=== PATIENT | female | born 1940 | race Caucasian/White ===

== ENCOUNTER 2016-10-01 15:03 | Inpatient (IN) | payer MEDICARE ==
[~2016-10-01] VITALS: Ht 157.5 cm; Wt 73.2 kg
[2016-10-03] MEDS ORDERED: FURO1TAB62 PO (13:29)
[2016-10-03] MEDS ORDERED: MAGN500T5 PO (13:29)
[2016-10-03] MEDS ORDERED: PANT20TA2 PO (13:29)
[2016-10-03] MEDS ORDERED: CARD120C4 PO (13:29)
[2016-10-03] MEDS ORDERED: POTA-163 PO (13:29)
[2016-10-03] MEDS ORDERED: MULT1TAB61 PO (13:29)
[2016-10-03] MEDS ORDERED: APIX2.5T PO (13:49)
[2016-10-22] MEDS ORDERED: LACTATED RINGER'S 1000 ML IV PRN (06:00)
[2016-10-22] MEDS ORDERED: SODIUM CHLORID 0.9% 500 ML IV PRN (06:00)
[2016-10-22] MEDS ORDERED: INSULIN HUMAN REGULAR 1,000 UNITS/10 ML VIAL SQ PRN (06:00)
[2016-10-22] MEDS ORDERED: CHLORHEXIDINE GLUCONATE 2 % 1 PACK (2 CLOTHS) TOPICAL PRN (06:00)
[2016-10-22] MEDS ORDERED: DEXAMETHASONE SOD PHOS 4 MG/ML VIAL IV SCH (06:00)
[2016-10-22] MEDS ORDERED: CLINDAMYCIN 900 MG/NS 100 ML IV SCH ×2 (06:00)
[2016-10-22] MEDS ORDERED: POVIDONE IODINE 5% (ANTISEPSIS KIT) 4 APPLICATIONS EACH NARE PRN (06:00)
[2016-10-22 06:10] VITALS: PULSE 101
[2016-10-22] MEDS ORDERED: DEXAMETHASONE SOD PHOS 20 MG/5 ML VIAL ONE (06:13)
[2016-10-22] MEDS ORDERED: SODIUM CHLORIDE 0.9% INJ 100 ML ONE (06:13)
[2016-10-22] MEDS ORDERED: POVIDONE IODINE 7.5% SCRUB 118 ML BOTTLE TOPICAL SCH (06:15)
[2016-10-22] MEDS ORDERED: EXPAREL PERI-ARTICULAR INJECTION (TOTAL VOL. 60 ML) P-ARTICULR SCH ×2 (06:15)
[2016-10-22] MEDS ORDERED: SODIUM CHLORIDE 0.9% IV SCH ×2 (06:15→10:00)
[2016-10-22] MEDS ORDERED: VANCOMYCIN 1000 MG/NS 250 ML (for <70 kg) IV SCH ×2 (06:15)
[2016-10-22] MEDS ORDERED: TRANEXAMIC ACID IV SCH ×2 (06:15→10:00)
[2016-10-22 06:17] VITALS: BP 148/95; PULSE 118; RESP 18; TEMP 98; O2SAT 97
[2016-10-22] MEDS ORDERED: GENTAMICIN SULFATE 80 MG/2 ML VIAL ONE (06:26)
[2016-10-22] MEDS ORDERED: diphenhydrAMINE HCL 50 MG/ML VIAL ONE (06:31)
[2016-10-22] MEDS ORDERED: FAMOTIDINE 20 MG/2 ML VIAL ONE (06:46)
[2016-10-22] MEDS ORDERED: MIDAZOLAM HCL 2 MG/2 ML VIAL ONE (06:46)
--- NOTE | 2016-10-22 06:51 | HHI.DCPOC ---
Discharge Care Plan Diagnosis: (1) Osteoarthritis of right hip (2) Status post total hip replacement, right Your Health Problems Are: Difficulty with ADL Goals to Promote Your Health * To prevent worsening of your condition and complications * To maintain your health at the optimal level Directions to Meet Your Goals Take your medications as prescribed Follow your dietary instruction Follow activity as directed Keep your appointments as scheduled Take your immunizations and boosters as scheduled If your symptoms worsen call your PCP, if no PCP go to Urgent Care Center or Emergency Room Smoking is Dangerous to Your Health. Avoid second hand smoke Call the 24-hour hour crisis hotline for domestic abuse at Kilo Daniels Oct 22, 2016 06:51
--- NOTE | 2016-10-22 06:52 | HHI.FF ---
Face to Face Verification Diagnosis: (1) Osteoarthritis of right hip (2) Status post total hip replacement, right Physical Therapy Gait training, Transfer training, bed to chair Hip: Total hip Right LE Weight Bearing: WB as tolerated Right LE Range of Motion: Active ROM Nursing Nursing: Dressing changes Dressing Changes: Daily dressing change I have seen patient Carri Gerardo on 10/22/16. My clinical findings support the need for the requested home health care services because: Limited ability to care for self High risk of falls I certify that my clinical findings support that this patient is homebound because: Post-op weakness Unsteady gait/balance Kilo Daniels Oct 22, 2016 06:52
[2016-10-22] MEDS ORDERED: SUGAMMADEX SODIUM 200 MG/2 ML VIAL IV PUSH ONE ×2 (08:37)
[2016-10-22] MEDS ORDERED: fentaNYL CITRATE 250 MCG/5 ML AMP ONE (08:37)
[2016-10-22] MEDS ORDERED: ALUMINUM/MAGNESIUM/SIMETH 30 ML CUP PO PRN (08:45)
[2016-10-22] MEDS ORDERED: oxyCODONE/ACETAMINOPHEN 5 MG/325 MG TAB PO PRN (08:45)
[2016-10-22] MEDS ORDERED: diphenhydrAMINE HCL 50 MG/ML VIAL IV PRN (08:45)
[2016-10-22] MEDS ORDERED: ONDANSETRON HCL 4 MG/2 ML VIAL IVP PRN (08:45)
[2016-10-22] MEDS ORDERED: NALOXONE HCL 0.4 MG/ML AMP IV PRN (08:45)
[2016-10-22] MEDS ORDERED: MORPHINE SULFATE 4 MG/ML INJ IV PUSH PRN (08:45)
[2016-10-22] MEDS ORDERED: MAGNESIUM HYDROXIDE SUSP 30 ML CUP PO PRN (08:45)
[2016-10-22] MEDS ORDERED: ZOLPIDEM TARTRATE 5 MG TAB PO PRN (08:45)
[2016-10-22] MEDS ORDERED: SODIUM CHLORIDE 0.9% FLUSH 5 ML FLUSH IVF PRN (08:45)
[2016-10-22] MEDS ORDERED: BISACODYL 10 MG SUPP RECTAL PRN (08:45)
[2016-10-22] MEDS ORDERED: Post-op Orders (for Pharmacy) MISC XX ONE (08:45)
--- NOTE | 2016-10-22 08:54 | PD.OP ---
cc: Dexter Cruz MD Operative Report Date of Surgery: Oct 22, 2016 Preoperative Diagnosis: Right hip severe osteoarthritis Postoperative Diagnosis: Same Procedure: Right total hip arthroplasty Anesthesia: Gen. Surgeon: Dexter Cruz Cnc Operator Machinist(s): JEREMY Preston The surgical procedure was assisted by my Advanced Registered Nurse Practitioner. My SILK CONDITIONER presence was necessary throughout this case for the manipulation and positioning of the surgical extremity. My SILK CONDITIONER was assisting me throughout the duration of this procedure. The skill set of an Advance Registered Nurse Practitioner was medically necessary to complete this procedure. During the surgical case, the lift team technician was working at the back table and the Advance Registered Nurse Practitioner was directly assisting me. Operation and Findings: IMPLANT DESCRIPTION: 1. [place] Gription Cup, acetabular size 48. 2. [place] AltrX polyethylene, neutral. 4. Corail femoral stem size 8, no collar, standard offset. 5. Femoral head/neck metal, 32, +1. ESTIMATED BLOOD LOSS: 300 cc. JUSTIFICATION FOR PROCEDURE: The patient has end-stage osteoarthritis to the hip. There is an attached conservative measures pathway form in the chart that describes the nonoperative measures that were undertaken prior to consideration of surgical management. The patient understood the risks and benefits of surgical management. See my office notes for further details. PROCEDURE: The patient was brought back to the operative theatre. Adequate anesthesia was obtained. The patient received intravenous clindamycin and vancomycin. The patient was carefully placed on the operative table. The lower extremity was prepped and draped in the usual sterile fashion. Fluoroscopic images were obtained. We made a standard anterior incision over the hip. We dissected through the TFL fascia, exposing the anterior capsule. Arthrotomy was performed in a T-shaped fashion. The capsule was tagged with a #2 FiberWire. End-stage arthritis was identified. Osteotomy was performed through the femoral neck exposing the acetabulum. Remnants of the labrum were resected and osteophytes were removed. We sequentially reamed the acetabulum. We trialed the hip and placed the final cup into position. This was done under fluoroscopic guidance to obtain the appropriate inclination and anteversion. A manhole cover was placed into the acetabular component. We then placed the final polyethylene into position and confirmed that it was well seated. Capsular attachments on the calcar and the inner aspect of the greater trochanter were resected. On the proximal aspect of the femur we used a rongeur , box osteotome, canal finder, sequential broaches and lateralizing rasp. We calcar planed the proximal femur. Then thoroughly irrigated the wound. We trialed the hip with the appropriate size stem. We placed the final stem in to position and trialed again. The hip was stable while it was externally rotated 70 degrees when the leg was lowered to the floor. According to the fluoroscopic imaging this patient had still some mild increase in leg length on the right side compared to the left side because the left side has severe osteoarthritis and shortening. We felt that the leg length on the right side now reapproximated the correct anatomic length and position to the hip. The final head was applied, and final fluoroscopic images were obtained. The wound was thoroughly irrigated again. Interarticular injection of liposomal bupivacaine was given. The capsule was closed with #2 FiberWire and #1 Vicryl. The deep fascia was closed with a #2 Stratafix, followed by 2-0 Vicryl in the skin and suleman. Postop plan is to weight-bear as tolerated. DVT prophylaxis will be performed with SCDs, NADEGE dorado, early mobilization, and Eliquis 2.5 mg by mouth twice a day. Dexter Cruz MD Oct 22, 2016 08:54
[2016-10-22] MEDS ORDERED: PERC5TAB12 PO (08:55)
[2016-10-22] MEDS: FUROSEMIDE 20 MG TAB PO SCH (09:00)
[2016-10-22] MEDS: SODIUM CHLORIDE 0.9% FLUSH 5 ML FLUSH IVF SCH ×2 (09:00→21:00)
[2016-10-22] MEDS: PANTOPRAZOLE SOD 20 MG DELAYED RELEASE TAB PO SCH (09:00)
[2016-10-22] MEDS ORDERED: DO NOT ADM ANY ANTICOAGULANT DRUGS PRN (09:08)
[2016-10-22 09:11] VITALS: PULSE 103
[2016-10-22] MEDS ORDERED: *morphine SULFATE 8 MG/ML PERIprocedure ONLY ONE ×2 (09:17→09:38)
[2016-10-22] MEDS: SODIUM CHLOR 0.9% 1000 ML INJ 1,000 ML IV SCH ×2 (09:49→20:00)
--- NOTE | 2016-10-22 09:55 | RADRPT ---
EXAM DATE/TIME: 10/22/2016 07:22 [facility] COMPARISON: No previous studies available for comparison. INDICATIONS : Right total hip arthroplasty. MEDICAL HISTORY : Unobtainable. SURGICAL HISTORY : Unobtainable. ENCOUNTER: Initial ACUITY: 1 day PAIN SCORE: Non-responsive. LOCATION: Right hip FINDINGS: Multiple coned down views of the right hip were obtained using a matrix camera and demonstrate that t he patient is status post arthroplasty. The femoral and acetabular components are intact and in [place] l alignment. There is overlying artifact. CONCLUSION: Status post right hip arthroplasty. Evelio Acosta MD on October 22, 2016 at 9:51 Board Certified Radiologist. This report was verified electronically.
[2016-10-22] MEDS: DILTIAZEM-CD 120 MG CAP ER PO SCH (10:00)
--- NOTE | 2016-10-22 10:27 | RADRPT ---
EXAM DATE/TIME: 10/22/2016 09:32 [facility] COMPARISON: None. INDICATIONS : Post op right hip arthroplasty. MEDICAL HISTORY : None. SURGICAL HISTORY : None. ENCOUNTER: Initial ACUITY: 1 day PAIN SCORE: 10/10 LOCATION: Right hip FINDINGS: AP views of the right hip were obtained as well as a cross table lateral view. This demonstrates that the patient is status post right hip arthroplasty. The femoral and acetabular components are intact and in normal alignment. There is soft tissue swelling and overlying surgical skin suleman. Oderate o steoarthritic changes are noted in the left hip. CONCLUSION: 1. Status post right hip arthroplasty. 2. Osteoarthritic change in the left. Evelio Acosta MD on October 22, 2016 at 10:24 Board Certified Radiologist. This report was verified electronically.
[2016-10-22] MEDS: POTASSIUM CHLORIDE 20 MEQ CONTROLLED RELEASE TAB PO SCH (10:51)
[2016-10-22] MEDS ORDERED: LACTATED RINGER'S 1000 ML INJ 1,000 ML IV ONE (12:00)
[2016-10-22] MEDS ORDERED: ePHEDrine/NS 25 MG/5 ML SYR IV ONE (12:00)
[2016-10-22] MEDS ORDERED: PROPOFOL 200 MG/20 ML AMP IV ONE (12:00)
[2016-10-22] MEDS ORDERED: ONDANSETRON HCL 4 MG/2 ML VIAL IV PUSH ONE (12:00)
[2016-10-22] MEDS ORDERED: PHENYLEPH/NS 1000 MCG/10 ML SYR IV ONE (12:00)
[2016-10-22] MEDS: CLINDAMYCIN INJ 900 MG in SODIUM CHLORIDE 0.9% INJ 100 ML IV SCH ×2 (14:00→23:06)
--- NOTE | 2016-10-22 14:56 | EKG ---
Date Performed: 10/22/2016 Time Performed: 06:19:08 PTAGE: 76 years EKG: ATRIAL FIBRILLATION WITH RAPID VENTRICULAR RESPONSE WITH ABERRANT CONDUCTION OR VENTRICULAR PREMATURE COMPLEXES INDETERMINATE AXIS RIGHT BUNDLE BRANCH BLOCK ABNORMAL ECG INTERPRETATION BASED O N A DEFAULT AGE OF 41 YEARS PREVIOUS TRACING : 10/03/2016 13.43 Compared to the previous tracing, previously sinus, n ow in atrial fibrillation DOCTOR: Matty Branham Interpretating Date/Time 10/22/2016 14:55:40
[2016-10-22 15:00] VITALS: BP 114/81; PULSE 100; RESP 16; TEMP 97.2; O2SAT 95
[2016-10-22 17:45] VITALS: O2SAT 95
--- NOTE | 2016-10-22 18:04 | PD.CONS ---
HPI Service [facility] Consult Requested By Dr. Cruz Reason for Consult Medical management Primary Care Physician Irving Sam DO Diagnoses: History of Present Illness This a pleasant 76-year-old white female with significant past medical history past arthritis, hypertension, recent diagnosis of paroxysmal atrial fibrillation. Patient was admitted for elective surgery, she underwent a right total hip arthroplasty. 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 She is on diltiazem which she took this morning. Patient tolerated surgery well, believes that heart rate was somewhat elevated prior to surgery but was cleared to proceed. At this time, she denies any chest pain, no shortness of breath. Heart rate is somewhat elevated from 110s. She denies any dizziness, no palpitations. States that prior to surgery she used Hibiclens wipes and did develop a rash to her trunk arms and thighs which was relieved with Decadron and Benadryl. She denies any itching at this time. Patient tolerated procedure well, she has minimal pain. Hospitalist services are requested for medical management. Review of Systems Constitutional: DENIES: Diaphoretic episodes, Fatigue, Fever, Weight gain, Weight loss, Chills, Dizziness, Change in appetite, Night Sweats Endocrine: DENIES: Abnorml menstrual pattern, Heat/cold intolerance, Polydipsia , Polyuria, Polyphagia Eyes: DENIES: Blurred vision, Diplopia, Eye inflammation, Eye pain, Vision loss , Photosensitivity, Double Vision Ears, nose, mouth, throat: DENIES: Tinnitus, Hearing loss, Vertigo, Nasal discharge, Oral lesions, Throat pain, Hoarseness, Ear Pain, Running Nose, Epistaxis, Sinus Pain, Toothache, Odynophagia Respiratory: DENIES: Apneas, Cough, Snoring, Wheezing, Hemoptysis, Sputum production, Shortness of breath Cardiovascular: DENIES: Chest pain, Palpitations, Syncope, Dyspnea on Exertion , PND, Lower Extremity Edema, Orthopnea, Claudication Gastrointestinal: DENIES: Abdominal pain, Black stools, Bloody stools, Constipation, Diarrhea, Nausea, Vomiting, Difficulty Swallowing, Anorexia Genitourinary: DENIES: Abnormal vaginal bleeding, Dysmenorrhea, Dyspareunia, Sexual dysfunction, Urinary frequency, Urinary incontinence, Urgency, Hematuria , Dysuria, Nocturia, Vaginal discharge Musculoskeletal: COMPLAINS OF: Joint pain, DENIES: Muscle aches, Stiffness, Joint Swelling, Back pain, Neck pain Integumentary: COMPLAINS OF: Rash (due to Hibiclens wipe), DENIES: Abnormal pigmentation, Pruritus, Nail changes, Breast masses, Breast skin changes, Nipple discharge Hematologic/lymphatic: DENIES: Bruising, Lymphadenopathy Immunologic/allergic: DENIES: Eczema, Urticaria Neurologic: DENIES: Abnormal gait, Headache, Localized weakness, Paresthesias, Seizures, Speech Problems, Tremor, Poor Balance Psychiatric: DENIES: Anxiety, Confusion, Mood changes, Depression, Hallucinations, Agitation, Suicidal Ideation, Homicidal Ideation, Delusions Past Family Social History Past Medical History Paroxysmal A. fib Osteoarthritis GERD Hypertension Migraine Past Surgical History Appendectomy Hysterectomy Bilateral carpal tunnel ORIF right ankle with screws and plate Reported Medications Reported Meds & Active Scripts Active Percocet (Oxycodone-Acetaminophen) 5-325 mg Tab 1-2 Tab PO Q4H PRN Reported Eliquis (Apixaban) 2.5 Mg Tab 2.5 Mg PO BID Centrum Silver Women Tablet (Multivit-Min/Iron/Folic/Lutein) 1 Each Tablet 1 Tab PO DAILY Magnesium Gluconate 500 Mg Tab 500 Mg PO DAILY Pantoprazole (Pantoprazole Sodium) 20 Mg Tab 20 Mg PO DAILY Potassium Chloride ER (Potassium Chloride) 20 Meq Tab 20 Meq PO DAILY Lasix (Furosemide) 20 Mg Tab 20 Mg PO DAILY Cardizem CD 24 HR (Diltiazem CD 24 HR) 120 Mg Caper 120 Mg PO DAILY Allergies: Coded Allergies: adhesive (Unverified Allergy, Severe, REDNESS, 10/22/16) cefazolin (Unverified Allergy, Severe, FLUSHING, 10/22/16) acebutolol (Unverified Allergy, Unknown, 10/22/16) aspirin (Unverified Allergy, Unknown, 10/22/16) atenolol (Unverified Allergy, Unknown, 10/22/16) benazepril (Unverified Allergy, Unknown, 10/22/16) betaxolol (Unverified Allergy, Unknown, 10/22/16) captopril (Unverified Allergy, Unknown, 10/22/16) carvedilol (Unverified Allergy, Unknown, 10/22/16) cephalexin (Unverified Allergy, Unknown, 10/22/16) codeine (Unverified Allergy, Unknown, vomit, 10/22/16) diatrizoate meglumine (Unverified Allergy, Unknown, 10/22/16) enalaprilat (Unverified Allergy, Unknown, 10/22/16) erythromycin base (Unverified Allergy, Unknown, 10/22/16) fosinopril (Unverified Allergy, Unknown, 10/22/16) gadobenic acid (Unverified Allergy, Unknown, 10/22/16) gadodiamide (Unverified Allergy, Unknown, 10/22/16) gadoteridol (Unverified Allergy, Unknown, 10/22/16) iodixanol (Unverified Allergy, Unknown, 10/22/16) iohexol (Unverified Allergy, Unknown, 10/22/16) labetalol (Unverified Allergy, Unknown, 10/22/16) latex (Unverified Allergy, Unknown, 10/22/16) lisinopril (Unverified Allergy, Unknown, 10/22/16) metoprolol (Unverified Allergy, Unknown, 10/22/16) nebivolol (Unverified Allergy, Unknown, 10/22/16) penicillin G (Unverified Allergy, Unknown, 10/22/16) pindolol (Unverified Allergy, Unknown, 10/22/16) propranolol (Unverified Allergy, Unknown, 10/22/16) quinapril (Unverified Allergy, Unknown, 10/22/16) sotalol (Unverified Allergy, Unknown, 10/22/16) timolol (Unverified Allergy, Unknown, 10/22/16) Active Ordered Medications Inpatient Medications Al Hydrox/Mg Hydrox/Simethicone (Mag-Al Plus Susp Liq) 30 ml Q6H PRN PO INDIGESTION; Start 10/22/16 at 08:45 Apixaban (Eliquis) 2.5 mg BID PO ; Start 10/23/16 at 07:00 Bisacodyl (Dulcolax Supp) 10 mg DAILY PRN RECTAL CONSTIPATION; Start 10/22/16 at 08:45 Bupivacaine Liposome 20 ml/ Sodium Chloride 60 ml @ 120 mls/hr ONCE P-ARTICULR Last administered on 10/22/16t 07:40; Start 10/22/16 at 06:15; Stop 10/22/16 at 12:15; Status DC Chlorhexidine Gluconate (Chlorhexidine 2% Cloth) 3 pack EYEGLASS LENS GRINDER PRN TOPICAL SEE LABEL COMMENTS; Start 10/22/16 at 06:00; Stop 10/25/16 at 05:59 Clindamycin Phosphate 900 mg/ Sodium Chloride 106 ml @ 212 mls/hr EYEGLASS LENS GRINDER IV Last administered on 10/22/16 06:34; Start 10/22/16 at 06:00 Clindamycin Phosphate/Sodium Chloride (Cleocin Inj/NS Inj) 106 ml @ 212 mls/hr Q8H IV Last administered on 10/22/16 14:00; Start 10/22/16 at 14:00; Stop at 06:29 Dexamethasone Sodium Phosphate (Decadron Inj) 10 mg ONCE ONCE IV ; Start at 10:00; Stop 10/23/16 at 10:01 Diltiazem HCl (Cardizem Cd) 120 mg DAILY PO ; Start 10/22/16 at 10:00 Diphenhydramine HCl (Benadryl Inj) 25 mg Q6H PRN IV ITCHING; Start 10/22/16 at 08:45 Docusate Sodium (Colace) 100 mg BID PO ; Start 10/23/16 at 21:00 Furosemide (Lasix) 20 mg DAILY PO Last administered on 10/22/16 09:00; Start 10/22/16 at 09:00 Insulin Human Regular (NovoLIN R INJ) See Protocol Table ... EYEGLASS LENS GRINDER PRN SQ SEE PROTOCOL TABLE; Start 10/22/16 at 06:00; Stop 10/25/16 at 05:59 IV Flush (NS Flush) 2 ml UNSCH PRN IVF FLUSH AFTER USING IV ACCESS; Start 10/22 at 08:45 IV Flush 2 ml 2 ml BID IVF Last administered on 10/22/16 09:00; Start at 09:00 Lactated Ringer's 1,000 ml @ 30 mls/hr Q24H PRN IV SEE LABEL COMMENTS Last administered on 10/22/16 06:10; Start 10/22/16 at 06:00; Stop 10/25/16 at 05:59 Magnesium Hydroxide (Milk Of Magnesia Liq) 30 ml DAILY PRN PO CONSTIPATION; Start 10/22/16 at 08:45 Miscellaneous Information ALL NURSING DEPARTME... UNSCH PRN .XX SEE LABEL COMMENTS; Start 10/22/16 at 09:08; Stop 10/23/16 at 09:07 Miscellaneous Information (Post-op Orders (for Pharmacy)) STAT ONCE XX ; Start 10/22/16 at 08:45; Stop 10/22/16 at 09:42; Status DC Morphine Sulfate (Morphine Inj) 2 mg Q3H PRN IV PUSH pain greater than 5; Start 10/22/16 at 08:45 Multivitamins/ Minerals Therapeutic (Theragran M Tab) 1 tab BID PO ; Start 10/23 at 21:00; Stop 12/22/16 at 20:59 Naloxone HCl (Narcan Inj) 0.4 mg UNSCH PRN IV RESPIRATORY RATE LESS THAN 10; Start 10/22/16 at 08:45 Ondansetron HCl (Zofran Inj) 4 mg Q6H PRN IVP NAUSEA OR VOMITING; Start at 08:45 Oxycodone/ Acetaminophen (Percocet 5-325 Mg) 1 tab Q4H PRN PO PAIN LESS THAN 5 ON SCALE; Start 10/22/16 at 08:45 Oxycodone/ Acetaminophen 2 tab 2 tab Q4H PRN PO PAIN SCALE 5 TO 10; Start 10/22 at 08:45 Pantoprazole Sodium (Protonix) 20 mg DAILY PO Last administered on 10/22/16 09 :00; Start 10/22/16 at 09:00 Potassium Chloride (KCl) 20 meq DAILY PO Last administered on 10/22/16 10:51; Start 10/22/16 at 09:00 Povidone Iodine (Betadine 5% Antisepsis Kit) 1 applic EYEGLASS LENS GRINDER PRN EACH NARE SEE LABEL COMMENTS; Start 10/22/16 at 06:00; Stop 10/25/16 at 05:59 Povidone Iodine 1 applic 1 applic ONCE TOPICAL ; Start 10/22/16 at 06:15; Stop 10/25/16 at 06:14 Sodium Chloride (NS 1000 ml Inj) 1,000 ml @ 100 mls/hr Q10H IV Last administered on 10/22/16 09:49; Start 10/22/16 at 10:00 Sodium Chloride (NS 500 ml Inj) 500 ml @ 30 mls/hr [id number] PRN IV SEE LABEL COMMENTS; Start 10/22/16 at 06:00; Stop 10/25/16 at 05:59 Tranexamic Acid 721 mg/Sodium Chloride 107.21 ml @ 200 mls/ hr ONCE IV Last administered on 10/22/16 07:11; Start 10/22/16 at 06:15; Stop 10/22/16 at 12:15 ; Status DC Tranexamic Acid/ Sodium Chloride (Cyklokapron Inj/ NS Inj) 107.21 ml @ 200 mls / hr UNSCH IV ; Start 10/22/16 at 10:00; Stop 10/22/16 at 16:00; Status DC Vancomycin HCl 1000 mg/Sodium Chloride 250 ml @ 250 mls/hr EYEGLASS LENS GRINDER IV Last administered on 10/22/16 06:38; Start 10/22/16 at 06:15; Stop 10/25/16 at 06:14 Zolpidem Tartrate (Ambien) 5 mg HS PRN PO SLEEP; Start 10/22/16 at 08:45 Family History Reviewed, noncontributory Social History Drinks 1- 2 glasses of wine a day, lives with son No tobacco abuse No substance abuse Physical Exam Vital Signs Vital Signs Date Time Temp Pulse Resp B/P Pulse Ox O2 Delivery O2 Flow Rate FiO2 10/22/16 17:45 95 Nasal Cannula 2.00 10/22/16 15:00 97.2 100 16 114/81 95 10/22/16 12:00 97.9 104 25 148/71 100 Nasal Cannula 2 10/22/16 11:00 110 12 148/71 95 Room Air 10/22/16 10:30 117 15 131/81 99 Nasal Cannula 2 10/22/16 10:00 111 12 132/71 100 Nasal Cannula 2 10/22/16 09:45 113 16 134/81 100 Nasal Cannula 2 10/22/16 09:30 103 14 137/61 100 Nasal Cannula 4 10/22/16 09:11 97.9 103 16 133/76 99 Nasal Cannula 4 10/22/16 09:11 103 10/22/16 06:17 98.0 118 18 148/95 97 10/22/16 06:10 101 Physical Exam GENERAL: This is a well-nourished, well-developed patient, in no apparent distress. SKIN: No rashes, ecchymoses or lesions. Cool and dry. HEAD: Atraumatic. Normocephalic. No temporal or scalp tenderness. EYES: Pupils equal round and reactive. Extraocular motions intact. No scleral icterus. No injection or drainage. ENT: Nose without bleeding, purulent drainage or septal hematoma. Throat without erythema, tonsillar hypertrophy or exudate. Uvula midline. Airway patent. NECK: Trachea midline. No JVD or lymphadenopathy. Supple, nontender, no meningeal signs. CARDIOVASCULAR: S1 and S2, irregularly irregular, no rubs, gallops, murmurs. RESPIRATORY: Clear to auscultation. Breath sounds equal bilaterally. No wheezes , rales, or rhonchi. GASTROINTESTINAL: Abdomen soft, non-tender, nondistended. No hepato-splenomegaly , or palpable masses. No guarding. MUSCULOSKELETAL: Right hip with dressing dry and intact, intact sensation to the right foot. Bilateral pedal pulses 2+. No other joint abnormality. NEUROLOGICAL: Awake and alert. Cranial nerves II through XII intact. Motor and sensory grossly within normal limits. Five out of 5 muscle strength in all muscle groups. Normal speech. Laboratory Laboratory Tests Test 10/22/16 06:08 Blood Type A NEGATIVE Antibody Screen NEGATIVE Blood Bank Comment Imaging Last Impressions Hip and Pelvis X-Ray 10/22/16 0844 Signed Impressions: Service Date/Time: Saturday, October 22, 2016 09:32 - CONCLUSION: 1. Status post right hip arthroplasty. 2. Osteoarthritic change in the left. Evelio Acosta MD Hip X-Ray 10/22/16 0000 Signed Impressions: Service Date/Time: Saturday, October 22, 2016 07:22 - CONCLUSION: Status post right hip arthroplasty. Evelio Acosta MD A/P Diagnosis: (1) Status post total hip replacement, right (2) Osteoarthritis of right hip (3) GERD (gastroesophageal reflux disease) (4) Paroxysmal a-fib (5) HTN (hypertension) Assessment and Plan Thank you for this consultation, we will assist with medical management 76-year-old with history of osteoarthritis, status post right hip arthroplasty -Continue with postoperative orthopedic care Pain management Postop antibiotics Eliquis 2.5 mg by mouth twice a day will be used for DVT prophylaxis Bowel regimen -Physical therapy Paroxysmal A. fib, heart rate noted elevated, 110s We will order continuous cardiac telemetry Continue with diltiazem Continue with Eliquis -Continue to monitor heart rate closely, may need medications to be adjusted if heart rate not controlled Hypertension -Continue with diltiazem Continue with Eliquis for DVT prophylaxis CBC and BMP in the morning Plan of care discussed with the patient, attending and registered nurse. Further management of the patient will be dependent on the hospital course This patient was seen by myself and Dr. Rodriguez, this consultation is written on his behalf Problem Qualifiers (1) Osteoarthritis of right hip: Qualified Code: M16.11 - Osteoarthritis of right hip, unspecified osteoarthritis type (2) GERD (gastroesophageal reflux disease): Qualified Code: K21.9 - Gastroesophageal reflux disease, esophagitis presence not specified (3) HTN (hypertension): Qualified Code: I10 - Essential hypertension Sharyn Martel Oct 22, 2016 18:04
[2016-10-22 19:00] VITALS: BP 116/55; PULSE 68; RESP 17; TEMP 99.5; O2SAT 94
[2016-10-22] MEDS: oxyCODONE/ACETAMINOPHEN 5 MG/325 MG TAB PO PRN (20:49)
[2016-10-23] VITALS (7 sets, daily range): BP systolic 115–139; BP diastolic 65–77; PULSE 85–98; RESP 16–18; TEMP 96–98.3; O2SAT 95–99
[2016-10-23] MEDS: oxyCODONE/ACETAMINOPHEN 5 MG/325 MG TAB PO PRN ×3 (05:45→21:05)
[2016-10-23] MEDS: CLINDAMYCIN INJ 900 MG in SODIUM CHLORIDE 0.9% INJ 100 ML IV SCH (05:45)
[2016-10-23] MEDS: SODIUM CHLOR 0.9% 1000 ML INJ 1,000 ML IV SCH ×3 (05:53→21:06)
[2016-10-23] MEDS: APIXABAN 2.5 MG TABLET PO SCH ×2 (05:53→21:05)
[2016-10-23] MEDS ORDERED: APIXABAN 2.5 MG TABLET PO SCH (07:00)
[2016-10-23 07:41] LABS: HEMATOCRIT 29.4 % (35.0-46.0); MEAN CELL VOLUME 91.1 FL (80.0-100.0); MEAN CORPUSCULAR HEMOGLOBIN 30.9 PG (27.0-34.0); MEAN CORPUSCULAR HGB CONC 33.9 % (32.0-36.0); PLATELET COUNT 85 TH/MM3 (150-450); RED BLOOD COUNT 3.22 MIL/MM3 (4.00-5.30); WHITE BLOOD COUNT 6.7 TH/MM3 (4.0-11.0)
[2016-10-23 07:49] LABS: REVIEW FLAG FINAL
[2016-10-23 08:16] LABS: BICARBONATE 27.7 MEQ/L (21.0-32.0); POTASSIUM 3.5 MEQ/L (3.5-5.1)
[2016-10-23] MEDS: SODIUM CHLORIDE 0.9% FLUSH 5 ML FLUSH IVF SCH ×2 (09:00→21:00)
[2016-10-23] MEDS: FUROSEMIDE 20 MG TAB PO SCH (09:26)
[2016-10-23] MEDS: POTASSIUM CHLORIDE 20 MEQ CONTROLLED RELEASE TAB PO SCH (09:26)
[2016-10-23] MEDS: PANTOPRAZOLE SOD 20 MG DELAYED RELEASE TAB PO SCH (09:26)
[2016-10-23] MEDS: DILTIAZEM-CD 120 MG CAP ER PO SCH (09:26)
[2016-10-23] MEDS ORDERED: DEXAMETHASONE SOD PHOS 20 MG/5 ML VIAL IV ONE (10:00)
--- NOTE | 2016-10-23 11:23 | PD.ORT.PN ---
Subjective Post Op Day #: 1 Subjective Remarks The patient is OOB in chair with minimal right hip pain. Objective Vitals Vital Signs Date Time Temp Pulse Resp B/P Pulse Ox O2 Delivery O2 Flow Rate FiO2 10/23/16 08:00 97.4 85 18 116/67 96 10/23/16 04:00 96.0 89 16 131/72 98 10/23/16 00:00 96.4 87 16 115/65 97 10/22/16 19:16 Room Air 10/22/16 19:00 99.5 68 17 116/55 94 10/22/16 17:45 95 21 10/22/16 15:00 97.2 100 16 114/81 95 10/22/16 12:00 97.9 104 25 148/71 100 Nasal Cannula 2 I/O 10/22/16 10/22/16 10/22/16 10/23/16 10/23/16 10/23/16 07:00 15:00 23:00 07:00 15:00 23:00 Intake Total 1729 ml 480 ml 749 ml Output Total 650 ml 800 ml 450 ml Balance 1079 ml -320 ml 299 ml Intake Oral 480 ml 480 ml IV Total 479 ml 269 ml Other 1250 ml Output Urine Total 350 ml 800 ml 450 ml Estimated Blood Loss 300 ml # Bowel Movements 0 0 Result Diagram: 10/23/1670210/23/16 07 Procedures Right REESE Objective Remarks Dressing is C/D/I. EHL/TA/G intact. 2+ pedal pulse. No calf swelling or tenderness. + SILT. Assessment & Plan Ortho Post Op Day #: 1 Problem List: Assessment and Plan POD #1: Right REESE 1. Eliquis 2.5 mg BID for DVT prophylaxis 2. WBAT RLE 3. Ice to the right hip PRN 4. Anticipatory discharge to [facility] ([facility]) on Thursday. 5. F/U with Dr. Cruz or JEREMY Yu in the office as scheduled. Kilo Daniels Oct 23, 2016 11:23
--- NOTE | 2016-10-23 12:59 | HHI.PR ---
Subjective Remarks resting up in chair Alert oriented Denies any acute pain (Beba Aden) Objective Objective Results - Vital Signs Date Time Temp Pulse Resp B/P Pulse Ox O2 Delivery O2 Flow Rate FiO2 10/23/16 12:00 98.1 98 18 139/74 99 10/23/16 08:00 97.4 85 18 116/67 96 10/23/16 04:00 96.0 89 16 131/72 98 10/23/16 00:00 96.4 87 16 115/65 97 10/22/16 19:16 Room Air 10/22/16 19:00 99.5 68 17 116/55 94 10/22/16 17:45 95 21 10/22/16 15:00 97.2 100 16 114/81 95 I/O 10/22/16 10/22/16 10/22/16 10/23/16 10/23/16 10/23/16 07:00 15:00 23:00 07:00 15:00 23:00 Intake Total 1729 ml 480 ml 749 ml Output Total 650 ml 800 ml 450 ml Balance 1079 ml -320 ml 299 ml Intake Oral 480 ml 480 ml IV Total 479 ml 269 ml Other 1250 ml Output Urine Total 350 ml 800 ml 450 ml Estimated Blood Loss 300 ml # Bowel Movements 0 0 (Beba Aden) Result Diagram: 10/23/1603 10/23/16 0703 ROS General: Weakness (mild), Other (10 point ROS done positives noted) Neuro/MS: Other (right hip dressing clean dry and intact, trace of edema) ( Beba Aden) Physical Exam Physical Exam PHYSICAL EXAMINATION GENERAL: This is a obese female who appears to be in no acute distress. She is alert and awake, HEAD: Normocephalic Facial features appear symmetric. OROPHARYNGEAL: Oropharynx without erythema or edema. NECK: Supple. No nuchal rigidity or lymphadenopathy. Trachea midline without deviation. CARDIAC: Regular rhythm, regular rate, S1 and S2 are heard. LUNGS: Clear to auscultation bilaterally. No cough ABDOMEN: Soft, nontender, round Bowel sounds are heard in all four quadrants. No rebound. No guarding. EXTREMITIES: no lower extremity edema. Pulses equal bilateral. NEUROLOGICAL: Patient mood and affect appropriate. No focal deficit SKIN:Warm and moist (Beba Aden) A/P Assessment and Plan (1) Status post total hip replacement, right (2) Osteoarthritis of right hip (3) GERD (gastroesophageal reflux disease) (4) Paroxysmal a-fib (5) HTN (hypertension) Blood sugar noted to be 140, patient states that she had been on some steroids. Nondiabetic osteoarthritis, status post right hip arthroplasty postoperative orthopedic care and pain management Eliquis 2.5 mg by mouth twice a day will be used for DVT prophylaxis Bowel regimen Physical therapy Paroxysmal A. fib, controlled ventricular response Monitor heart rate, continue medical management with L was and Cardizem Thrombocytopenia, monitor labs patient is on Eliquix Continue with Eliquis for DVT prophylaxis Discussed with patient Discussed with nurse and physical therapist Discussed with Dr. Campbell, seen on his behalf Discharge planning probable Thursday, patient's plan is to go to rehabilitation (Beba Aden) Assessment and Plan seen, examined by myself, Dr Campbell, today Discussed with patient, she has elevated fasting blood sugar Rule out diabetes Hemoglobin A1c, TSH, liver enzymes, CBC, BMP ordered for tomorrow Otherwise she is doing well postoperatively Discussed with mid level provider The exam, history, and the medical decision-making described in the above note were completed with the assistance of the mid-level provider. I reviewed the findings presented. I attest that I had a [id number] encounter with the patient on the same day, and personally performed and documented my assessment and findings in the medical record. (Ada Campbell MD) Beba Aden Oct 23, 2016 12:59 Ada Campbell MD Oct 23, 2016 19:52
[2016-10-23] MEDS: MULTIVITAMINS/MINERALS THERAPEUTIC TAB PO SCH (21:05)
[2016-10-23] MEDS: DOCUSATE SODIUM 100 MG CAP PO SCH (21:05)
[2016-10-24] VITALS (7 sets, daily range): BP systolic 114–148; BP diastolic 68–79; PULSE 79–95; RESP 16–17; TEMP 96.7–98.4; O2SAT 96–99
[2016-10-24] MEDS: DOCUSATE SODIUM 100 MG CAP PO SCH ×2 (08:15→20:50)
[2016-10-24] MEDS: POTASSIUM CHLORIDE 20 MEQ CONTROLLED RELEASE TAB PO SCH (08:15)
[2016-10-24] MEDS: APIXABAN 2.5 MG TABLET PO SCH ×2 (08:16→20:49)
[2016-10-24] MEDS: FUROSEMIDE 20 MG TAB PO SCH (08:16)
[2016-10-24] MEDS: MULTIVITAMINS/MINERALS THERAPEUTIC TAB PO SCH ×2 (08:16→20:52)
[2016-10-24] MEDS: DILTIAZEM-CD 120 MG CAP ER PO SCH (08:16)
[2016-10-24] MEDS: PANTOPRAZOLE SOD 20 MG DELAYED RELEASE TAB PO SCH (08:17)
[2016-10-24] MEDS: oxyCODONE/ACETAMINOPHEN 5 MG/325 MG TAB PO PRN ×2 (08:18→18:22)
[2016-10-24] MEDS: SODIUM CHLORIDE 0.9% FLUSH 5 ML FLUSH IVF SCH ×2 (08:19→20:53)
[2016-10-24 09:38] LABS: AUTOMATED NEUTROPHIL # 5.6 TH/MM3 (1.8-7.7); HEMATOCRIT 29.7 % (35.0-46.0); LYMPH % 6.2 % (9.0-44.0); LYMPHOCYTE # 0.4 TH/MM3 (1.0-4.8); MEAN CELL VOLUME 90.1 FL (80.0-100.0); MEAN CORPUSCULAR HEMOGLOBIN 30.8 PG (27.0-34.0); MEAN CORPUSCULAR HGB CONC 34.2 % (32.0-36.0); MONO % 8.9 % (0.0-8.0); NEUT % 84.9 % (16.0-70.0); PLATELET COUNT 78 TH/MM3 (150-450); RED BLOOD COUNT 3.29 MIL/MM3 (4.00-5.30); RED CELL DISTRIBUTION WIDTH 14.3 % (11.6-17.2); WHITE BLOOD COUNT 6.6 TH/MM3 (4.0-11.0)
[2016-10-24 09:50] LABS: ANION GAP 5 MEQ/L (5-15); BICARBONATE 30.3 MEQ/L (21.0-32.0); BLOOD UREA NITROGEN 16 MG/DL (7-18); CHLORIDE 103 MEQ/L (98-107); GLOMERULAR FILTRATION RATE 80 ML/MIN (>89); POTASSIUM 3.1 MEQ/L (3.5-5.1); SODIUM (NA) 138 MEQ/L (136-145)
[2016-10-24 10:01] LABS: HDL CHOLESTEROL 64.9 MG/DL (40.0-60.0); HEMO FLAGS AUTO DIFF; LDL CHOLESTEROL 73 MG/DL (0-99)
[2016-10-24] MEDS ORDERED: POTASSIUM CHLORIDE 20 MEQ CONTROLLED RELEASE TAB PO ONE (10:45)
[2016-10-24 11:42] LABS: PLATELET MORPHOLOGY ENLARGED (NORMAL); SCAN/DIFF AUTO DIFF CONFIRMED
[2016-10-24] MEDS: SODIUM CHLOR 0.9% 1000 ML INJ 1,000 ML IV SCH ×2 (12:00→20:52)
--- NOTE | 2016-10-24 13:52 | HHI.PR ---
Subjective Remarks resting up in chair Alert oriented Denies any acute pain (Beba Aden) Objective Objective Results - Vital Signs Date Time Temp Pulse Resp B/P Pulse Ox O2 Delivery O2 Flow Rate FiO2 10/24/16 12:31 96 21 10/24/16 04:00 97.1 80 17 126/78 98 10/24/16 00:00 97.7 87 16 114/68 97 10/23/16 20:00 98.2 89 16 129/77 95 10/23/16 19:42 Room Air 10/23/16 16:00 98.3 92 18 137/72 97 10/23/16 14:16 98 21 I/O 10/23/16 10/23/16 10/23/16 10/24/16 10/24/16 10/24/16 06:59 14:59 22:59 06:59 14:59 22:59 Intake Total 749 ml 960 ml 480 ml 480 ml Output Total 450 ml Balance 299 ml 960 ml 480 ml 480 ml Intake Oral 480 ml 960 ml 480 ml 480 ml IV Total 269 ml Output Urine Total 450 ml # Voids 1 2 1 # Bowel Movements 0 0 (Beba Aden) Result Diagram: 10/24/16 0833 10/24/16 0833 Physical Exam Physical Exam PHYSICAL EXAMINATION GENERAL: This is a well-developed, elderly female resting in chair. She is alert and awake, Mild bruising noted on arms. Patient on Eliquis HEAD: Normocephalic Facial features appear symmetric. OROPHARYNGEAL: Oropharynx without erythema or edema. NECK: Supple. Trachea midline without deviation. CARDIAC: Regular rhythm, regular rate, S1 and S2 are heard. LUNGS: Clear to auscultation bilaterally. ABDOMEN: Soft, nontender, Bowel sounds are heard in all four quadrants. No rebound. No guarding. EXTREMITIES: no LE edema. Pulses equal bilateral. NEUROLOGICAL: Patient mood and affect appropriate. SKIN:Warm and moist (Beba Aden) A/P Assessment and Plan (1) Status post total hip replacement, right (2) Osteoarthritis of right hip (3) GERD (gastroesophageal reflux disease) (4) Paroxysmal a-fib (5) HTN (hypertension) Blood sugar noted to be 116, fasting, needs further monitoring, Nondiabetic, continue to monitor TSH, Hgb A!C, pending, Lipids normal ranges, HDL good, TSH 0.147. Monitor, may need f/u U/S. osteoarthritis, status post right hip arthroplasty postoperative orthopedic care and pain management Eliquis 2.5 mg by mouth twice a day will be used for DVT prophylaxis Bowel regimen, still no BM yet, Will add Ducolax tabs, encourage PO fluids , suppository Ducolax if no BM. Patient is passing gas. Physical therapy Multiple allergies, Added PO Benadryl per patient request. GERD, PPI Hypokalemia, added Potassium PO 40mez today, Patient takes Lasix and low dose Potassium. Check BMP in am Thrombocytopenia , monitor, on low dose Eliquis, no active bleeding noted. Paroxysmal A. fib, controlled ventricular response, hx of , No symptoms when in afib or not. Monitor heart rate, continue medical management Thrombocytopenia, monitor labs patient is on Eliquis low dose, will have Hematology to see today Continue with Eliquis for DVT prophylaxis Discussed with patient Discussed with nurse and physical therapist Discussed with Dr. Campbell, seen on his behalf Discharge planning probable Thursday, patient's plan is to go to [facility], Case Management consult to assistance, 3008 on chart (Beba Aden) Assessment and Plan seen, examined by myself, Dr Campbell, today Discussed with patient, she is feeling well Platelets dropping, etiology unclear, consult hematology Replace potassium Discussed with mid level provider The exam, history, and the medical decision-making described in the above note were completed with the assistance of the mid-level provider. I reviewed the findings presented. I attest that I had a [id number] encounter with the patient on the same day, and personally performed and documented my assessment and findings in the medical record. (Ada Campbell MD) Beba Aden Oct 24, 2016 13:52 Ada Campbell MD Oct 24, 2016 19:18
[2016-10-24] MEDS ORDERED: diphenhydrAMINE HCL 25 MG CAP PO PRN (14:00)
--- NOTE | 2016-10-24 15:28 | PD.ORT.PN ---
Subjective Post Op Day #: 2 Subjective Remarks The patient states her hip pain is better today. Patient's pain is better than her OA pain she had prior to surgery. Objective Vitals Vital Signs Date Time Temp Pulse Resp B/P Pulse Ox O2 Delivery O2 Flow Rate FiO2 10/24/16 12:31 96 21 10/24/16 04:00 97.1 80 17 126/78 98 10/24/16 00:00 97.7 87 16 114/68 97 10/23/16 20:00 98.2 89 16 129/77 95 10/23/16 19:42 Room Air 10/23/16 16:00 98.3 92 18 137/72 97 I/O 10/23/16 10/23/16 10/23/16 10/24/16 10/24/16 10/24/16 07:00 15:00 23:00 07:00 15:00 23:00 Intake Total 749 ml 960 ml 480 ml 480 ml Output Total 450 ml Balance 299 ml 960 ml 480 ml 480 ml Intake Oral 480 ml 960 ml 480 ml 480 ml IV Total 269 ml Output Urine Total 450 ml # Voids 1 2 1 # Bowel Movements 0 0 Result Diagram: 10/24/16 0833 10/24/16 0833 Procedures Right REESE Objective Remarks Dressing changed with no drainage. Incision is well approximated with surgical clips intact. No redness or s/s of infection. EHL/TA/G intact. 2+ pedal pulse. No calf swelling or tenderness. + SILT. Assessment & Plan Ortho Post Op Day #: 2 Problem List: Assessment and Plan POD #2: Right REESE 1. Eliquis 2.5 mg BID for DVT prophylaxis 2. WBAT RLE 3. Ice to the right hip PRN 4. Anticipatory discharge to [facility] ([facility]) on Thursday. 5. F/U with Dr. Cruz or JEREMY Yu in the office as scheduled. Dexter Cruz MD Oct 24, 2016 15:28
[2016-10-24 17:07] LABS: HEMOGLOBIN A1a 0.8 %; HEMOGLOBIN A1b 1.5 %; HEMOGLOBIN Ao 85.6 %; HEMOGLOBIN F 0.3 %; HEMOGLOBIN LA1C 2.1 %
[2016-10-25] VITALS: BP 103/66; PULSE 87; RESP 16; TEMP 97; O2SAT 98
[2016-10-25 08:00] VITALS: BP 162/73; PULSE 59; RESP 22; TEMP 99; O2SAT 96
[2016-10-25] MEDS: SODIUM CHLOR 0.9% 1000 ML INJ 1,000 ML IV SCH (08:00)
[2016-10-25] MEDS: DOCUSATE SODIUM 100 MG CAP PO SCH (09:00)
[2016-10-25] MEDS: DILTIAZEM-CD 120 MG CAP ER PO SCH (09:00)
[2016-10-25] MEDS: MULTIVITAMINS/MINERALS THERAPEUTIC TAB PO SCH (09:00)
[2016-10-25] MEDS: SODIUM CHLORIDE 0.9% FLUSH 5 ML FLUSH IVF SCH (09:00)
[2016-10-25] MEDS: oxyCODONE/ACETAMINOPHEN 5 MG/325 MG TAB PO PRN ×2 (09:03→15:52)
[2016-10-25] MEDS: POTASSIUM CHLORIDE 20 MEQ CONTROLLED RELEASE TAB PO SCH (09:03)
[2016-10-25] MEDS: FUROSEMIDE 20 MG TAB PO SCH (09:04)
[2016-10-25] MEDS: APIXABAN 2.5 MG TABLET PO SCH (09:04)
[2016-10-25] MEDS: PANTOPRAZOLE SOD 20 MG DELAYED RELEASE TAB PO SCH (09:04)
--- NOTE | 2016-10-25 09:30 | PD.ORT.PN ---
Subjective Subjective Remarks Patient comfortable. Pain controlled. OOB sitting in a recliner. Eating breakfast. Objective Vitals Vital Signs Date Time Temp Pulse Resp B/P Pulse Ox O2 Delivery O2 Flow Rate FiO2 10/25/16 08:00 99.0 59 22 162/73 96 10/25/16 00:00 97.0 87 16 103/66 98 10/24/16 20:00 98.4 79 16 115/68 97 10/24/16 19:16 Room Air 10/24/16 17:57 96 21 10/24/16 16:00 96.7 87 17 148/77 99 10/24/16 12:31 96 21 I/O 10/24/16 10/24/16 10/24/16 10/25/16 10/25/16 10/25/16 07:00 15:00 23:00 07:00 15:00 23:00 Intake Total 480 ml 720 ml 600 ml Balance 480 ml 720 ml 600 ml Intake Oral 480 ml 720 ml 600 ml # Voids 1 2 2 Result Diagram: 10/24/1633 10/24/1633 Procedures Right REESE Objective Remarks Dressing C/D/I. No calf swelling or tenderness Distally motor, neuro and sensory intact Assessment & Plan Assessment and Plan POD #3: Right REESE 1. Eliquis 2.5 mg BID for DVT prophylaxis 2. WBAT RLE 3. Ice to the right hip PRN 4. Anticipatory discharge to [facility]) on Thursday. 5. F/U with Dr. Cruz or JEREMY Yu in the office as scheduled. 6. Orthopedically stable for discharge Rafael Castro Oct 25, 2016 09:29
--- NOTE | 2016-10-25 10:42 | PD.ONC.PN ---
Subjective Subjective Remarks Patient was seen yesterday and Consult note dictated--Not available yet Patient doing well today no bleeding anticipating to go home DIC labs pending Objective Data Date Time Temp Pulse Resp B/P Pulse Ox O2 Delivery O2 Flow Rate FiO2 10/25/16 08:00 99.0 59 22 162/73 96 10/25/16 00:00 97.0 87 16 103/66 98 10/24/16 20:00 98.4 79 16 115/68 97 10/24/16 19:16 Room Air 10/24/16 17:57 96 21 10/24/16 16:00 96.7 87 17 148/77 99 10/24/16 12:31 96 21 10/25/16 10/25/16 10/25/16 07:00 15:00 23:00 Intake Total 600 ml Balance 600 ml Result Diagram: 10/24/1633 10/24/16832 Administered Medications Medications (Trade) Dose Ordered Sig/Linda Route PRN Reason Start Time Stop Time Status Last Admin Dose Admin Sodium Chloride (NS 1000 ml Inj) 1,000 ml @ 100 mls/hr Q10H IV 10/22/16 10:00 10/22/16 20:00 IV Flush (NS Flush) 2 ml BID IVF 10/22/16 09:00 10/24/16 20:53 Oxycodone/ Acetaminophen (Percocet 5-325 Mg) 1 tab Q4H PRN PO PAIN LESS THAN 5 ON SCALE 10/22/16 08:45 10/25/16 09:03 Multivitamins/ Minerals Therapeutic (Theragran M Tab) 1 tab BID PO 10/23/16 21:00 12/22/16 20:59 10/23/16 21:05 Ondansetron HCl (Zofran Inj) 4 mg Q6H PRN IVP NAUSEA OR VOMITING 10/22/16 08:45 10/22/16 20:48 Docusate Sodium (Colace) 100 mg BID PO 10/23/16 21:00 10/25/16 09:00 Diltiazem HCl (Cardizem Cd) 120 mg DAILY PO 10/22/16 10:00 10/25/16 09:00 Furosemide (Lasix) 20 mg DAILY PO 10/22/16 09:00 10/25/16 09:04 Pantoprazole Sodium (Protonix) 20 mg DAILY PO 10/22/16 09:00 10/25/16 09:04 Potassium Chloride (KCl) 20 meq DAILY PO 10/22/16 09:00 10/25/16 09:03 Apixaban (Eliquis) 2.5 mg BID PO 10/23/16 07:00 10/25/16 09:04 Diphenhydramine HCl (Benadryl) 25 mg Q6H PRN PO ITCHING 10/24/16 14:00 10/24/16 15:30 Objective Remarks GENERAL: nad SKIN: Warm and dry. NECK: Supple, trachea midline. No JVD or lymphadenopathy. LYMPHATIC: No adenopathy. CARDIOVASCULAR: Regular rate and rhythm without murmurs. RESPIRATORY: Breath sounds equal bilaterally. No accessory muscle use. GASTROINTESTINAL: Abdomen soft, non-tender, nondistended. EXTREMITIES: No cyanosis, or edema. Assessment/Plan Problem List: (1) Osteoarthritis of right hip Status: Acute (2) Paroxysmal a-fib Status: Acute (3) Status post total hip replacement, right Status: Acute Assessment 76 y/o with PMH of OA, PAF, GERD who was admitted to the hospital for elective hip surgery s/p THR POD # 3 1. Acute thrombocytopenia - Likelihood of HIT is less likely. 4 T score for HIT assessment is 3 placing her at low risk. also less likely this is TTP - Will rule out D/C - She admits that she had mild thrombocytopenia in the past. Does admit to drinking ---"more than normal" amount of alcohol. Has had elevated LFTs in the past- Excessive alcohol intake and liver disease can cause thrombocytopenia - check Hep Panel, LDH, Haptoglobin pending. check LFts - Obtain abdominal U/S - If pLTs remain stable over the next 24 hours--she can be discharged home and f /u in hematology clinic 2. S/P Hip replacement 3. Acute post op anemia 4. PAF - continue vanesa d/w rn Problem Qualifiers (1) Osteoarthritis of right hip: Qualified Code: M16.11 - Osteoarthritis of right hip, unspecified osteoarthritis type Seun Oakes MD Oct 25, 2016 10:42
[2016-10-25 12:00] VITALS: BP 148/92; PULSE 106; RESP 20; TEMP 98.2; O2SAT 96
--- NOTE | 2016-10-25 13:25 | HHI.PR ---
Subjective Remarks resting up in chair Alert oriented Denies any acute pain. she is walking alone with walker wants to go to [place] anyway otherwise she will get ever y test over there and if plt drops she will come back. she has low plt before. Objective Objective Results - Vital Signs Date Time Temp Pulse Resp B/P Pulse Ox O2 Delivery O2 Flow Rate FiO2 10/25/16 12:00 98.2 106 20 148/92 96 10/25/16 10:03 16 10/25/16 08:00 99.0 59 22 162/73 96 10/25/16 00:00 97.0 87 16 103/66 98 10/24/16 20:00 98.4 79 16 115/68 97 10/24/16 19:16 Room Air 10/24/16 17:57 96 21 10/24/16 16:00 96.7 87 17 148/77 99 I/O 10/24/16 10/24/16 10/24/16 10/25/16 10/25/16 10/25/16 07:00 15:00 23:00 07:00 15:00 23:00 Intake Total 480 ml 720 ml 600 ml Balance 480 ml 720 ml 600 ml Intake Oral 480 ml 720 ml 600 ml # Voids 1 2 2 Result Diagram: 10/24/16 0833 10/24/16 0833 Imaging Last Impressions Hip and Pelvis X-Ray 10/22/16 0844 Signed Impressions: Service Date/Time: Saturday, October 22, 2016 09:32 - CONCLUSION: 1. Status post right hip arthroplasty. 2. Osteoarthritic change in the left. Evelio Acosta MD Hip X-Ray 10/22/16 0000 Signed Impressions: Service Date/Time: Saturday, October 22, 2016 07:22 - CONCLUSION: Status post right hip arthroplasty. Evelio Acosta MD Physical Exam Physical Exam GENERAL: This is a well-developed, elderly female resting in chair. She is alert and awake, Mild bruising noted on arms. Patient on Eliquis HEAD: Normocephalic Facial features appear symmetric. OROPHARYNGEAL: Oropharynx without erythema or edema. NECK: Supple. Trachea midline without deviation. CARDIAC: Regular rhythm, regular rate, S1 and S2 are heard. LUNGS: Clear to auscultation bilaterally. ABDOMEN: Soft, nontender, Bowel sounds are heard in all four quadrants. No rebound. No guarding. EXTREMITIES: no LE edema. Pulses equal bilateral. NEUROLOGICAL: Patient mood and affect appropriate. SKIN:Warm and moist A/P Assessment and Plan (1) Status post total hip replacement, right (2) Osteoarthritis of right hip (3) GERD (gastroesophageal reflux disease) (4) Paroxysmal a-fib (5) HTN (hypertension) TSH reviewed will get free T4 as an outpt script given 5.3 Hgb A!C, . osteoarthritis, status post right hip arthroplasty postoperative orthopedic care and pain management Eliquis 2.5 mg by mouth twice a day will be used for DVT prophylaxis Bowel regimen,encourage PO fluids , suppository Ducolax. Physical therapy Multiple allergies, Added PO Benadryl per patient request. GERD, PPI Hypokalemia, added Potassium PO 40mez today, Patient takes Lasix and low dose Potassium. Thrombocytopenia , monitor, on low dose Eliquis, no active bleeding noted. Paroxysmal A. fib, controlled ventricular response, hx of , No symptoms when in afib or not. Monitor heart rate, continue medical management Thrombocytopenia, monitor labs patient is on Eliquis low dose, will have Hematology to see today Continue with Eliquis for DVT prophylaxis Discussed with patient. she will not stay and she maya do test as outpt. she knows consequences about going to [place] without all test performed, including not limited to bleeding and sock. she understood all and will take her chances her son at bedside. she agrees to stay for US abd this late afternoon but will leave today anyway and if porblem she will come back. Discussed with nurse Discharge planning probable Thursday, patient's plan is to go to rehabilitation , Xiomy Mcdaniel Jawed A. MD Oct 25, 2016 13:25
[2016-10-25 13:56] LABS: HEMATOCRIT 35.8 % (35.0-46.0); MEAN CORPUSCULAR HEMOGLOBIN 30.4 PG (27.0-34.0); MEAN CORPUSCULAR HGB CONC 33.4 % (32.0-36.0); PLATELET COUNT 106 TH/MM3 (150-450); RED BLOOD COUNT 3.93 MIL/MM3 (4.00-5.30); RED CELL DISTRIBUTION WIDTH 14.4 % (11.6-17.2); REVIEW FLAG FINAL; WHITE BLOOD COUNT 5.6 TH/MM3 (4.0-11.0)
[2016-10-25 14:34] VITALS: O2SAT 97
[2016-10-25 16:00] VITALS: BP 124/72; PULSE 102; RESP 20; TEMP 98.3; O2SAT 96
--- NOTE | 2016-10-25 16:04 | RADRPT ---
EXAM DATE/TIME: 10/25/2016 15:06 [facility] COMPARISON: No previous studies available for comparison. INDICATIONS : Thrombocytopenia. MEDICAL HISTORY : Gastroesophageal reflux disease. Hypertension. Migraine. Atrial fibrillation. Alcohol use. Eric trophobia. SURGICAL HISTORY : Appendectomy. Hysterectomy. Bilateral carpel tunnel surgery. ORIF right ankle. ENCOUNTER: Initial ACUITY: 1 day PAIN SCORE: 1/10 LOCATION: abdomen. MEASUREMENTS: LIVER: 13.5 cm length COMMON DUCT: 4 mm RIGHT KIDNEY: 10.1 x 5.0 x 4.7 cm LEFT KIDNEY: 10.2 x 4.0 x 4.5 cm SPLEEN: 12.8 cm length AORTA: 1.7 cm maximal FINDINGS: The liver is slightly echogenic which maybe due to fatty infiltration and or hepatocellular dysfuncti on. There are multiple cysts in the liver the largest one measures 2.9 x 3.1 cm in size. The gallblad devin demonstrates multiple stones without gallbladder wall thickening, or pericholecystic fluid. The visualized pancreas appears grossly intact for technique. The IVC, aorta are unremarkable. No defin ite solid renal mass or hydeonephrosis is seen. The spleen is enlarged measuring 12.8 cm without foca l lesions for technique. There are multiple cysts in the right kidney the largest measures 1.6 cm in size. CONCLUSION: 1. Cholelithiasis. 2. The liver is slightly echogenic which maybe due to fatty infiltration and or hepatocellular dysfun ction and slight splenomegaly. Lucretia Joe MD on October 25, 2016 at 16:00 Board Certified Radiologist. This report was verified electronically.
--- NOTE | 2016-10-25 21:59 | HHI.DS ---
Discharge Summary Admission Date Oct 22, 2016 at 05:32 Discharge Date: Oct 25, 2016 Admitting Diagnosis OA of the right hip Status post total hip replacement, right Diagnosis: (1) Osteoarthritis of right hip Diagnosis: Principal (2) Status post total hip replacement, right Diagnosis: Principal Procedures Right REESE Brief History This is a 76 year old female patient with severe OA of the right hip. CBC/BMP: 10/25/16 1326 10/24/16 0833 Significant Findings Laboratory Tests Test 10/23/16 10/24/16 10/25/16 07:03 08:33 13:26 Red Blood Count 3.22 MIL/MM3 3.29 MIL/MM3 3.93 MIL/MM3 (4.00-5.30) (4.00-5.30) (4.00-5.30) Hemoglobin 9.9 GM/DL 10.2 GM/DL (11.6-15.3) (11.6-15.3) Hematocrit 29.4 % 29.7 % (35.0-46.0) (35.0-46.0) Platelet Count 85 TH/MM3 78 TH/MM3 106 TH/MM3 (150-450) (150-450) (150-450) Estimat Glomerular Filtration 67 ML/MIN (>89) 80 ML/MIN (>89) Rate Random Glucose 140 MG/DL 116 MG/DL (74-106) (74-106) Calcium Level 8.0 MG/DL 8.3 MG/DL (8.5-10.1) (8.5-10.1) Neutrophils (%) (Auto) 84.9 % (16.0-70.0) Lymphocytes (%) (Auto) 6.2 % (9.0-44.0) Monocytes (%) (Auto) 8.9 % (0.0-8.0) Lymphocytes # (Auto) 0.4 TH/MM3 (1.0-4.8) Platelet Morphology Comment ENLARGED (NORMAL) Potassium Level 3.1 MEQ/L (3.5-5.1) HDL Cholesterol 64.9 MG/DL (40.0-60.0) Thyroid Stimulating Hormone 0.147 uIU/ML 3rd Gen (0.358-3.740) Haptoglobin 202 MG/DL (30-200) PE at Discharge Dressing C/D/I. No calf swelling or tenderness Distally motor, neuro and sensory intact Hospital Course The patient was admitted to the hospital for severe OA of the right hip to have a right REESE. The patient's surgery went well without complication. The patent is WBAT. The patient is on a regular diet. The patient was placed on Eliquis post op for DVT prophylaxis. The patient was discharged to a SNF ([facility]) and will f/u in the office as previously scheduled with Dr. Cruz or JEREMY Yu. Pt Condition on Discharge: Stable Discharge Disposition: Discharge to SNF Discharge Instructions Diet Instructions: As Tolerated, No Restrictions Activities You Can Perform: Weight Bearing as Paz Activities to Avoid: Strenuous Activity Follow up Referrals: Orthopedics with Dexter Cruz MD New Medications: Oxycodone-Acetaminophen (Percocet) 5-325 mg Tab 1-2 TAB PO Q4H PRN PAIN #60 Ref 0 TAB Continued Medications: Apixaban (Eliquis) 2.5 Mg Tab 2.5 MG PO BID Blood Clot Prevention Ref 0 TAB Diltiazem CD 24 HR (Cardizem CD 24 HR) 120 Mg Caper 120 MG PO DAILY #30 Ref 0 CAP Furosemide (Lasix) 20 Mg Tab 20 MG PO DAILY #30 Ref 0 TAB Magnesium Gluconate (Magnesium Gluconate) 500 Mg Tab 500 MG PO DAILY Nutritional Supplement Ref 0 TAB Multivit-Min/Iron/Folic/Lutein (Centrum Silver Women Tablet) 1 Each Tablet 1 TAB PO DAILY Pantoprazole (Pantoprazole) 20 Mg Tab 20 MG PO DAILY Reflux #30 Ref 0 TAB Potassium Chloride ER (Potassium Chloride ER) 20 Meq Tab 20 MEQ PO DAILY Electrolyte Replacement #60 Ref 0 TAB Kilo Daniels Oct 25, 2016 21:59
--- NOTE | 2016-10-30 09:58 | MB ---
cc: LUCA CLARK DATE OF CONSULTATION 10/24/2016 DATE OF 1940. REASON FOR CONSULTATION The patient is status post right total hip replacement with thrombocytopenia. HISTORY OF PRESENT ILLNESS This is a 76-year-old female who has a history of osteoarthritis, hypertension, paroxysmal A-fib, who was admitted to the hospital for elective hip surgery. She has undergone right total hip arthroplasty. From the surgical standpoint she has done well after her surgery and today is postop day #2. She was started on Eliquis 2.5 mg b.i.d. for DVT prophylaxis. She is anticipated to be discharged to SNF on Thursday. I have been consulted to make further recommendations regarding her thrombocytopenia. It appears that on 10/03/2016 she had a platelet count of 118,000. On 10/23 her platelet count was 85,000 and today the platelet count is 78,000. Prior to that the records are available from 2002 and 2008 and at that time her platelet count was 175 and 250,000 which was within normal range. The patient is not aware of having low platelet count. She has had abnormal liver functions in the past. Her AST was slightly elevated to 38 and ALT was elevated to 29 on 10/03/2016. Previously the elevated liver function tests were grossly abnormal in 2002 and again in 2008. She has not had any bleeding on this admission. The patient has not been given any heparin but she may have received heparin flushes. She has no past history of tobacco abuse. She drink drinks one to two glasses of wine a day. No history of substance abuse. REVIEW OF SYSTEMS A comprehensive 14-point review of systems was completed which is negative except as described in the HPI. PAST MEDICAL HISTORY 1. Paroxysmal A-fib. 2. Osteoarthritis. 3. Gastroesophageal reflux disease. 4. Hypertension. 5. Migraines. PAST SURGICAL HISTORY 1. Appendectomy. 2. Hysterectomy. 3. Bilateral carpal tunnel syndrome. 4. ORIF of right ankle with screws in place. MEDICATIONS Reviewed in the EMR. ALLERGIES She has a number of allergies which are documented in the EMR. There are multiple drugs. FAMILY HISTORY Noncontributory. SOCIAL HISTORY She drinks one to two glasses of wine a day. She lives with her son. No tobacco abuse. No alcohol abuse. PHYSICAL EXAMINATION VITAL SIGNS: Blood pressure is 126/78, pulse in the 80s, temperature is 97.1, respiratory rate is 17, O2 sats are 96% on 21% FIO2. GENERAL: A well-developed, well-nourished female who is sitting up in chair. She does not appear to be in any distress. HEENT: Pupils are equal, round, reactive to light. EOMI. No oral thrush. No oral lesions. NECK: Supple. No JVD, no bruits. No lymphadenopathy. CHEST: Clear to auscultation bilaterally. CARDIAC: S1, S2. Regular rate and rhythm. ABDOMEN: Soft, nontender, nondistended. Bowel sounds are present. EXTREMITIES: Without any edema, erythema or cyanosis. SKIN: Without any petechiae, lesion or bruises. She has right hip dressing in place. Her dressing was changed today. There does not appear to be any drainage. The dressing is dry and clean. LABORATORY DATA CBC shows WBC of 6.6, hemoglobin of 10.2, platelet count is 78,000. Serum chemistries shows sodium of 138, potassium 3.1, chloride 103, CO2 30.3, BUN is 16, creatinine is 0.71. TSH is 0.147. Coags show INR of 1.1, PT of 11.8, PTT of 27.4. IMAGING STUDIES Hip and pelvic x-rays were reviewed. She is status post right hip arthroplasty with osteoarthritis on the left side. ASSESSMENT AND PLAN This is a 76-year-old female who has a past medical history of osteoarthritis, hypertension, paroxysmal A-fib who was admitted to the hospital for elective surgery. She has undergone right total hip arthroplasty without any complications. I have been consulted for evaluation of thrombocytopenia. 1. Thrombocytopenia. It is unclear whether she has chronic thrombocytopenia. Upon review of her labs she was mildly thrombocytopenic on 10/03/2016. She progressively has dropped her platelets which can be seen postoperatively. The main concern we have here is whether this patient has heparin-induced thrombocytopenia. She has not been exposed to heparin GTT but she may have been given IV heparin flushes. Based on the 4T score for her hip, she has a very low probability. Her score comes to be approximately 3 which places her at a low probability of HIT of less than 5%. She has had abnormal LFTs in the past. There is a possibility that she has underlying mild liver disease. We will check her LFTs again. We will obtain a hepatitis panel. I would avoid any heparin or heparin-related products. Check LDH, haptoglobin and fibrinogen. If her platelets continue to drop further, then we may obtain a HIT Panel. I do not believe that this is warranted at this time. 2. Status post total hip replacement of the right hip. Management per Orthopedics. 3. History of paroxysmal atrial fibrillation. She is on diltiazem and she is on Eliquis management per primary team. Thank you for allowing me to participate in the care of this patient. I will continue to follow this patient along. MD HOANG Garrett/PAVEL /4:01 PM /9:54 AM
== END 2016-10-25 18:51 | DRG 470 ==
LOC: HSDI 10-22 05:32 → N06A 10-22 14:28
PROVIDERS: ADMIT Orthopaedic Surgery; ATTEND Orthopaedic Surgery
PROC: 0SR902A Replacement of Right Hip Joint with Metal on Polyethylene Synthetic Substitute, Uncemented, Open Approach (ICD-10-PCS; principal; 2016-10-22 06:52)
DX: M16.11 Unilateral primary osteoarthritis, right hip (principal); D69.6 Thrombocytopenia, unspecified; I10 Essential (primary) hypertension; K21.0 Gastro-esophageal reflux disease with esophagitis; I48.0 Paroxysmal atrial fibrillation; D62 Acute posthemorrhagic anemia; E87.6 Hypokalemia
CPT/HCPCS: 73502; 76000; 76700; 80048; 80061; 83010; 83036; 84443; 85025; 85027; 86705; 86803; 86850; 86900; 86901; 87340; 93005; 94150; C1776; C9290; J1100; J1200; J1580; J2250; J2270; J2370; J2405; J3010; J3370; J7030; J7050; J7120

== ENCOUNTER → 2016-10-03 | Outpatient (CLI) | payer MEDICARE ==
[~2016-10-03] MED LIST: ACIP20TA19 PO; APIX2.5T PO; ATAC32TA PO; CARD120C4 PO; FURO1TAB62 PO; HYDR50TA5 PO; MAGN500T5 PO; MULT1TAB61 PO; PANT20TA2 PO; POTA-163 PO; TAB-TAB PO
--- NOTE | 2016-10-03 15:12 | RADRPT ---
EXAM DATE/TIME: 10/03/2016 14:37 [facility] COMPARISON: No previous studies available for comparison. INDICATIONS : Pre-op right hip surgery. MEDICAL HISTORY : None. SURGICAL HISTORY : None. ENCOUNTER: Initial ACUITY: 1 day PAIN SCORE: 0/10 LOCATION: Bilateral chest FINDINGS: PA and lateral views of the chest demonstrate the lungs to be symmetrically aerated without evidence of mass, infiltrate or effusion. The cardiomediastinal contours are unremarkable. Osseous structure s are intact. CONCLUSION: No acute disease. Matt Degroot MD FACR on October 03, 2016 at 15:10 Board Certified Radiologist. This report was verified electronically.
[2016-10-03 16:06] LABS: AUTOMATED NEUTROPHIL # 3.6 TH/MM3 (1.8-7.7); BASOPHIL % 0.5 % (0.0-2.0); EOSINOPHIL # 0.3 TH/MM3 (0-0.4); EOSINOPHIL % 5.6 % (0.0-4.0); HEMATOCRIT 40.2 % (35.0-46.0); HEMO FLAGS DIFF FINAL; LYMPH % 8.6 % (9.0-44.0); LYMPHOCYTE # 0.4 TH/MM3 (1.0-4.8); MEAN CELL VOLUME 90.9 FL (80.0-100.0); MEAN CORPUSCULAR HEMOGLOBIN 30.8 PG (27.0-34.0); MEAN CORPUSCULAR HGB CONC 33.9 % (32.0-36.0); MONO % 11.3 % (0.0-8.0); PLATELET COUNT 118 TH/MM3 (150-450); RED BLOOD COUNT 4.42 MIL/MM3 (4.00-5.30); RED CELL DISTRIBUTION WIDTH 14.6 % (11.6-17.2); WHITE BLOOD COUNT 4.9 TH/MM3 (4.0-11.0)
[2016-10-03 16:07] LABS: APTT (PATIENT) 29.6 SEC (24.3-30.1); INTERNATIONAL NORMALIZED RATIO 1.1 RATIO; PROTHROMBIN TIME - PATIENT 11.8 SEC (9.8-11.6)
[2016-10-03 16:40] LABS: ALT (GPT) 29 U/L (10-53); ANION GAP 10 MEQ/L (5-15); AST (GOT) 38 U/L (15-37); BLOOD UREA NITROGEN 14 MG/DL (7-18); CHLORIDE 103 MEQ/L (98-107); GLOMERULAR FILTRATION RATE 73 ML/MIN (>89); GLUCOSE,FASTING 89 MG/DL (74-99); POTASSIUM 3.7 MEQ/L (3.5-5.1); SODIUM (NA) 141 MEQ/L (136-145)
[2016-10-03 16:42] LABS: ALKALINE PHOSPHATASE 107 U/L (45-117); TOTAL BILIRUBIN ADULT 0.8 MG/DL (0.2-1.0)
[2016-10-03 16:53] LABS: WESTERGREN SEDIMENTATION RATE 21 mm/hr (0-30)
--- NOTE | 2016-10-04 19:17 | EKG ---
Date Performed: 10/03/2016 Time Performed: 13:43:12 PTAGE: 76 years EKG: Sinus rhythm WITH FREQUENT PVCs POOR QRS VOLTAGE IN PRECORDIAL LEADS RIGHT BUNDLE BRANCH BLOCK NONSPECIFIC T-WAVE CHANGES ABNORMAL RHYTHM ECG Compared to PREVIOUS TRACING , the supraventricular tachycardia has resolved and the PVCs are new. ST -T changes anterolaterally are new but nonspecific. PREVIOUS TRACIN04/05/2008 14.11 DOCTOR: Preston Taylor Interpretating Date/Time 10/04/2016 19:16:05
== END ==
LOC: CPRE 13:02
PROVIDERS: ATTEND Orthopaedic Surgery
DX: Z01.812 Encounter for preprocedural laboratory examination (principal); Z01.811 Encounter for preprocedural respiratory examination; Z01.810 Encounter for preprocedural cardiovascular examination; M16.11 Unilateral primary osteoarthritis, right hip; M79.609 Pain in unspecified limb; M25.50 Pain in unspecified joint; I45.10 Unspecified right bundle-branch block; Z96.60 Presence of unspecified orthopedic joint implant
CPT/HCPCS: 36415; 71020; 80053; 85025; 85610; 85652; 85730; 93005

== ENCOUNTER 2017-08-22 02:48 | Inpatient (IN) | payer MEDICARE ==
[~2017-08-22] VITALS: Ht 154.9 cm; Wt 69.0 kg
[~2017-08-22 02:48] MED LIST changes: -ACIP20TA19 PO; -ATAC32TA PO; -HYDR50TA5 PO; +PERC5TAB12 PO; -TAB-TAB PO
[2017-08-22 03:07] VITALS: BP 190/87; PULSE 90; RESP 18; TEMP 99; O2SAT 97
[2017-08-22] MEDS ORDERED: SODIUM CHLORIDE 0.9% FLUSH 10 ML FLUSH IV FLUSH PRN ×2 (03:45→08:00)
[2017-08-22] MEDS ORDERED: SODIUM CHLORID 0.9% 500 ML INJ 500 ML IV ONE (03:45)
[2017-08-22] MEDS ORDERED: ONDANSETRON HCL 4 MG/2 ML VIAL IVP ONE (03:45)
[2017-08-22 04:08] LABS: CALCIUM 9.1 MG/DL (8.5-10.1)
[2017-08-22 04:12] LABS: CREATININE 0.74 MG/DL (0.50-1.00)
[2017-08-22 04:45] LABS: AUTOMATED NEUTROPHIL # 4.1 TH/MM3 (1.8-7.7); BASOPHIL % 0.8 % (0.0-2.0); EOSINOPHIL # 0.1 TH/MM3 (0-0.4); EOSINOPHIL % 1.9 % (0.0-4.0); HEMATOCRIT 36.3 % (35.0-46.0); HEMOGLOBIN 12.1 GM/DL (11.6-15.3); LYMPH % 1.3 % (9.0-44.0); LYMPHOCYTE # 0.1 TH/MM3 (1.0-4.8); MEAN CELL VOLUME 77.8 FL (80.0-100.0); MEAN CORPUSCULAR HEMOGLOBIN 25.8 PG (27.0-34.0); MEAN CORPUSCULAR HGB CONC 33.2 % (32.0-36.0); MEAN PLATELET VOLUME 8.9 FL (7.0-11.0); MONOCYTE # 0.2 TH/MM3 (0-0.9); PLATELET COUNT 103 TH/MM3 (150-450); RED BLOOD COUNT 4.66 MIL/MM3 (4.00-5.30); RED CELL DISTRIBUTION WIDTH 18.2 % (11.6-17.2); WHITE BLOOD COUNT 4.5 TH/MM3 (4.0-11.0)
[2017-08-22 04:51] LABS: BILIRUBIN, URINE NEG (NEG); BLOOD, URINE NEG (NEG); GLUCOSE,URINE NEG (NEG); KETONE, URINE NEG (NEG); NITRITE,URINE NEG (NEG); PH, URINE 7.5 (5.0-8.5); URINE COLOR YELLOW (YELLW/STRAW); URINE LEUKOCYTE ESTERASE NEG (NEG)
--- NOTE | 2017-08-22 04:53 | RADRPT ---
EXAM DATE: 08/22/2017 4:29 AM EDT AGE/SEX: 77 years / Female INDICATIONS: Abdominal cramping, diarrhea, vomiting. CLINICAL DATA: This is the patient's initial encounter. Patient reports that signs and symptoms have been present for 1 day and indicates a pain score of 8/10. MEDICAL/SURGICAL HISTORY: Hypertension. Gastroesophageal reflux disease. Osteoarthritis. Appe ndectomy. Hysterectomy. RADIATION DOSE: 15.13 CTDI (mGy) COMPARISON: No prior exams available for comparison. TECHNIQUE: Multiple contiguous axial images were obtained through the abdomen. Images were obtained using multiple row detector helical technique. Using dose reduction techniques, radiation dose was ke pt as low as reasonably achievable to obtain optimal diagnostic quality images. FINDINGS: Lower Lungs: The visualized lower lungs are clear. Liver: The liver has a homogeneous density with several low-density lesions. There is no dilation of the biliary tree. Spleen: Homogeneous density without enlargement. Pancreas: There is minimal stranding posterior to the pancreas Kidneys: Normal in size and shape. No evidence of mass or hydronephrosis. Right renal low-density. N o renal calculi. Adrenal Glands: Unremarkable. Aorta: The aorta and proximal iliac vessels are grossly unremarkable without aneurysmal dilation. Bowel/Mesentery: There are some scattered diverticula. There is nondistention of the majority of the colon. No significant inflammatory changes. Abdominal Wall: Intact. Retroperitoneum: There are some retroperitoneal lymph nodes 1 aortocaval location measuring 13 x 11 mm. Bladder: Contours are smooth. Reproductive Organs: No abnormal masses or calcifications seen. Uterus is absent. Inguinal: The inguinal region is unremarkable without evidence of adenopathy. Bony Structures: Degenerative changes lower lumbar spine with minimal anterolisthesis L4 on 5.. Scol iosis. CONCLUSION: 1. There is nondistention of the colon without significant inflammatory changes. 2. Scattered diverticulosis without diverticulitis. 3. Minimal stranding posterior to the pancreas of uncertain etiology but could represent pancreatiti s in the right clinical setting. 4. Cholelithiasis. 5. Hepatic low densities, likely benign. 6. Scattered retroperitoneal lymphadenopathy largest measuring 13 mm. Electronically signed by: Javier Gray MD 08/22/2017 4:51 AM EDT
[2017-08-22 05:03] LABS: RBC, URINE 0-3 /hpf (0-3); WBC, URINE 0-2 /hpf (0-5)
[2017-08-22 05:04] LABS: SQUAMOUS EPITHELIAL CELL URINE > 8 /hpf (0-5)
[2017-08-22] MEDS ORDERED: POTASSIUM CHLORIDE 20 MEQ CONTROLLED RELEASE TAB PO ONE (05:15)
--- NOTE | 2017-08-22 05:17 | PD ---
HPI Chief Complaint: GI Complaint Time Seen by Provider: 03:25 Travel History International Travel<30 days: No Contact w/Intl Traveler<30days: No Traveled to known affect area: No History of Present Illness HPI Patient is a 77-year-old female who comes in complaining of abdominal pain with nausea and vomiting. She says it started around 6:00 tonight is been getting worse. She says she is unable to keep anything down. She has had a couple episodes of loose stools. She says the pain started in her right flank and moved into her right lower quadrant. She denies fever or chills. She has never had pain like this before. She has not taken anything for the pain. Nothing seems to make her symptoms better or worse. Severity is moderate. PFSH Past Medical History Cancer: No Cardiovascular Problems: Yes (AFIB CONTROLLED, CONDUCTIVE DEFECT) Diabetes: No Endocrine: No Gastrointestinal Disorders: Yes (GERD) GERD: Yes Genitourinary: No Hepatitis: No Hiatal Hernia: No Hypertension: Yes Immune Disorder: No Musculoskeletal: Yes (OA) Neurologic: No Psychiatric: No Reproductive: No Respiratory: No Migraines: Yes Thyroid Disease: No ?: Not Menopausal: Yes Past Surgical History Abdominal Surgery: Yes (APPENDECTOMY) AICD: No Appendectomy: Yes Body Medical Devices: PLATE AND SCREWS IN RIGHT ANKLE Cardiac Surgery: No Ear Surgery: No Endocrine Surgery: No Eye Surgery: Yes (EYE LIFT ) Genitourinary Surgery: No Gynecologic Surgery: Yes (HYSTERECTOMY) Hysterectomy: Yes Joint Replacement: No Neurologic Surgery: No Oral Surgery: Yes (T/A) Pacemaker: No Thoracic Surgery: No Other Surgery: Yes (BILAT CARPEL TUNNEL) Social History Alcohol Use: Yes (2 GLASSES OF WINE A DAY) Tobacco Use: No Substance Use: No Allergies-Medications (Allergen,Severity, Reaction): Coded Allergies: adhesive (Unverified Allergy, Severe, REDNESS, 08/22/17) cefazolin (Unverified Allergy, Severe, FLUSHING, 08/22/17) garlic (Verified Allergy, Severe, Migraine, 08/22/17) acebutolol (Unverified Allergy, Unknown, 08/22/17) aspirin (Unverified Allergy, Unknown, 08/22/17) atenolol (Unverified Allergy, Unknown, 08/22/17) benazepril (Unverified Allergy, Unknown, 08/22/17) betaxolol (Unverified Allergy, Unknown, 08/22/17) captopril (Unverified Allergy, Unknown, 08/22/17) carvedilol (Unverified Allergy, Unknown, 08/22/17) cephalexin (Unverified Allergy, Unknown, 08/22/17) codeine (Unverified Allergy, Unknown, vomit, 08/22/17) diatrizoate meglumine (Unverified Allergy, Unknown, 08/22/17) enalaprilat (Unverified Allergy, Unknown, 08/22/17) erythromycin base (Unverified Allergy, Unknown, 08/22/17) fosinopril (Unverified Allergy, Unknown, 08/22/17) gadobenic acid (Unverified Allergy, Unknown, 08/22/17) gadodiamide (Unverified Allergy, Unknown, 08/22/17) gadoteridol (Unverified Allergy, Unknown, 08/22/17) iodixanol (Unverified Allergy, Unknown, 08/22/17) iohexol (Unverified Allergy, Unknown, 08/22/17) labetalol (Unverified Allergy, Unknown, 08/22/17) latex (Unverified Allergy, Unknown, 08/22/17) lisinopril (Unverified Allergy, Unknown, 08/22/17) metoprolol (Unverified Allergy, Unknown, 08/22/17) nebivolol (Unverified Allergy, Unknown, 08/22/17) penicillin G (Unverified Allergy, Unknown, 08/22/17) pindolol (Unverified Allergy, Unknown, 08/22/17) propranolol (Unverified Allergy, Unknown, 08/22/17) quinapril (Unverified Allergy, Unknown, 08/22/17) sotalol (Unverified Allergy, Unknown, 08/22/17) timolol (Unverified Allergy, Unknown, 08/22/17) Reported Meds & Prescriptions Reported Meds & Active Scripts Active Reported Eliquis (Apixaban) 2.5 Mg Tab 2.5 Mg PO BID Centrum Silver Women Tablet (Multivit-Min/Iron/Folic/Lutein) 1 Each Tablet 1 Tab PO DAILY Magnesium Gluconate 500 Mg Tab 500 Mg PO DAILY Pantoprazole (Pantoprazole Sodium) 20 Mg Tab 20 Mg PO DAILY Potassium Chloride ER (Potassium Chloride) 20 Meq Tab 20 Meq PO DAILY Lasix (Furosemide) 20 Mg Tab 20 Mg PO DAILY Cardizem CD 24 HR (Diltiazem CD 24 HR) 120 Mg Caper 120 Mg PO DAILY Review of Systems Except as stated in HPI: all other systems reviewed are Neg General / Constitutional: No: Fever, Chills HENT: No: Headaches, Lightheadedness Cardiovascular: No: Chest Pain or Discomfort Respiratory: No: Shortness of Breath Gastrointestinal: Positive: Nausea, Vomiting, Abdominal Pain Genitourinary: Positive: Flank Pain, No: Dysuria Skin: No Rash, No Change in Pigmentation Neurologic: No: Weakness, Dizziness Physical Exam Narrative GENERAL: Awake and alert, no acute distress. SKIN: Focused skin assessment warm/dry. No wounds or signs of infection. HEAD: Atraumatic. Normocephalic. EYES: Pupils equal and round. No scleral icterus. ENT: Mucous membranes pink and moist. NECK: Trachea midline. No JVD. CARDIOVASCULAR: Regular rate and rhythm. No murmur appreciated. RESPIRATORY: No accessory muscle use. Clear to auscultation. Breath sounds equal bilaterally. GASTROINTESTINAL: Abdomen soft, nondistended. Mild tenderness to palpation of the right upper quadrant. No rebound or guarding. MUSCULOSKELETAL: No obvious deformities. No clubbing. No cyanosis. No edema. NEUROLOGICAL: Awake and alert. No obvious cranial nerve deficits. Motor grossly within normal limits. Normal speech. PSYCHIATRIC: Appropriate mood and affect; insight and judgment normal. Data Data Last Documented VS Vital Signs Date Time Temp Pulse Resp B/P (MAP) Pulse Ox O2 Delivery O2 Flow Rate FiO2 08/22/17 05:44 74 16 119/67 (84) Room Air 08/22/17 03:07 99.0 97 Orders Orders Basic Metabolic Panel (Bmp) (08/22/17 03:36) Complete Blood Count With Diff (08/22/17 03:36) Lipase (08/22/17 03:36) Prothrombin Time / Inr (Pt) (08/22/17 03:36) Act Partial Throm Time (Ptt) (08/22/17 03:36) Urinalysis - C+S If Indicated (08/22/17 03:36) Ct Abd/Pel W/O Iv Contrast (08/22/17 03:36) Iv Access Insert/Monitor (08/22/17 03:36) Ecg Monitoring (08/22/17 03:36) Oximetry (08/22/17 03:36) Ondansetron Inj (Zofran Inj) (08/22/17 03:45) Sodium Chloride 0.9% Flush (Ns Flush) (08/22/17 03:45) Sodium Chlorid 0.9% 500 Ml Inj (Ns 500 M (08/22/17 03:45) Hepatic Functional Panel (08/22/17 05:07) Potassium Chloride (Kcl) (08/22/17 05:15) Prochlorperazine Inj (Compazine Inj) (08/22/17 05:30) Us Abdomen Gallbladder (08/22/17 ) Labs Laboratory Tests Test 08/22/17 03:40 08/22/17 04:10 08/22/17 04:40 08/22/17 04:55 Blood Urea Nitrogen 7 MG/DL Creatinine 0.74 MG/DL Random Glucose 129 MG/DL Calcium Level 9.1 MG/DL Sodium Level 138 MEQ/L Potassium Level 3.1 MEQ/L Chloride Level 102 MEQ/L Carbon Dioxide Level 22.0 MEQ/L Anion Gap 14 MEQ/L Estimat Glomerular Filtration Rate 76 ML/MIN Lipase 213 U/L White Blood Count 4.5 TH/MM3 Red Blood Count 4.66 MIL/MM3 Hemoglobin 12.1 GM/DL Hematocrit 36.3 % Mean Corpuscular Volume 77.8 FL Mean Corpuscular Hemoglobin 25.8 PG Mean Corpuscular Hemoglobin Concent 33.2 % Red Cell Distribution Width 18.2 % Platelet Count 103 TH/MM3 Mean Platelet Volume 8.9 FL Neutrophils (%) (Auto) 91.0 % Lymphocytes (%) (Auto) 1.3 % Monocytes (%) (Auto) 5.0 % Eosinophils (%) (Auto) 1.9 % Basophils (%) (Auto) 0.8 % Neutrophils # (Auto) 4.1 TH/MM3 Lymphocytes # (Auto) 0.1 TH/MM3 Monocytes # (Auto) 0.2 TH/MM3 Eosinophils # (Auto) 0.1 TH/MM3 Basophils # (Auto) 0.0 TH/MM3 CBC Comment DIFF FINAL Differential Comment Urine Color YELLOW Urine Turbidity CLEAR Urine pH 7.5 Urine Specific [employer] 1.010 Urine Protein NEG mg/dL Urine Glucose (UA) NEG mg/dL Urine Ketones NEG mg/dL Urine Occult Blood NEG Urine Nitrite NEG Urine Bilirubin NEG Urine Urobilinogen 1.0 MG/DL Urine Leukocyte Esterase NEG Urine RBC 0-3 /hpf Urine WBC 0-2 /hpf Urine Squamous Epithelial Cells > 8 /hpf Microscopic Urinalysis Comment CULT NOT INDICATED Prothrombin Time 11.3 SEC Prothromb Time International Ratio 1.1 RATIO Activated Partial Thromboplast Time 25.8 SEC Test 08/22/17 05:12 Total Bilirubin 2.1 MG/DL Direct Bilirubin 1.4 MG/DL Indirect Bilirubin 0.7 MG/DL Aspartate Amino Transf (AST/SGOT) 317 U/L Alanine Aminotransferase (ALT/SGPT) 83 U/L Alkaline Phosphatase 179 U/L Total Protein 7.5 GM/DL Albumin 3.7 GM/DL [facility] Medical Decision Making Medical Screen Exam Complete: Yes Emergency Medical Condition: Yes Medical Record Reviewed: Yes Differential Diagnosis pancreatitis vs cholecystitis vs colitis vs renal stone vs UTI Narrative Course Patient is a 77 year old female who comes in complaining of right sided abdominal pain with nausea and vomiting. Exam shows RUQ tenderness. IV established, labs sent. Labs concerning for Total Bili of 2.1, direct bili of 1.4. AST and ALT are elevated. CT shows mild inflammation behind the pancreas Last 24 hours Impressions Abdomen/Pelvis CT 08/22/17 0336 Signed Impressions: CONCLUSION: 1. There is nondistention of the colon without significant inflammatory change s. 2. Scattered diverticulosis without diverticulitis. 3. Minimal stranding posterior to the pancreas of uncertain etiology but could represent pancreatitis in the right clinical setting. 4. Cholelithiasis. 5. Hepatic low densities, likely benign. 6. Scattered retroperitoneal lymphadenopathy largest measuring 13 mm. US gallbladder ordered. Patient signed out to the oncoming physician to follow up testing and disposition the patient. Alma Delia Telles MD Aug 22, 2017 05:17
[2017-08-22 05:22] LABS: ALBUMIN 3.7 GM/DL (3.4-5.0)
[2017-08-22 05:25] LABS: DIRECT BILIRUBIN ADULT 1.4 MG/DL (0.0-0.2)
[2017-08-22 05:27] LABS: INDIRECT BILIRUBIN 0.7 MG/DL (0.0-0.8); TOTAL BILIRUBIN ADULT 2.1 MG/DL (0.2-1.0); TOTAL PROTEIN 7.5 GM/DL (6.4-8.2)
[2017-08-22] MEDS ORDERED: PROCHLORPERAZINE INJ 10 MG/2 ML VIAL IV PUSH ONE (05:30)
[2017-08-22 05:44] VITALS: BP 119/67; PULSE 74; RESP 16
[2017-08-22 05:49] LABS: INTERNATIONAL NORMALIZED RATIO 1.1 RATIO; PROTHROMBIN TIME - PATIENT 11.3 SEC (9.8-11.6)
--- NOTE | 2017-08-22 07:27 | RADRPT ---
EXAM DATE: 08/22/2017 7:16 AM EDT AGE/SEX: 77 years / Female INDICATIONS: Abdominal pain, nausea, diarrhea. CLINICAL DATA: This is the patient's sequela encounter. Patient reports that signs and/or symptoms h ave been present for 1 day and indicates a pain score of 4/10. MEDICAL/SURGICAL HISTORY: . Hypertension. Gastroesophageal reflux disease. Osteoarthritis. . Hyst erectomy. Appendectomy. COMPARISON: [facility], CT ABDOMEN & PELVIS W/O CONTRAST, 08/22/2017. . MEASUREMENTS (cm x cm x cm): Liver:__ 13.7 cm length Common Bile Duct:__ 11mm FINDINGS: Liver: The liver demonstrates mild coarsened echotexture. There are 2 anechoic avascular lesion iden tified in the right lobe measuring 3.5 cm and 1.[address] demonstrated additional 2 small low -density lesions. No concerning solid mass is seen. There is mild intrahepatic bile duct dilatation.. Portal Vein: Hepatopedal flow seen in portal vein. Common Duct: No stone or obstructing lesion is visualized. Gallbladder: There are stones within the gallbladder. Mild wall thickening is present. There is no p ericholecystic fluid and sonographic Shearer sign is absent. Pancreas: The visualized portions are within normal limits Right Kidney: There is a simple cyst at the lower pole measuring 14 mm. No hydronephrosis, stone, or solid mass is seen. Other: None. CONCLUSION: 1. Cholelithiasis with intrahepatic and extrahepatic bile duct dilatation. No stone is visualized in the common duct on this examination but on recent CT in retrospect there are small high density stru ctures in the distal common duct suspicious for distal common bile duct stones. 2. Pancreas has a normal appearance on this examination but demonstrated mild inflammatory change ad jacent to the pancreas on recent CT. 3. There are benign-appearing hepatic and right renal cysts. Electronically signed by: Irving Medel MD 08/22/2017 7:26 AM EDT
[2017-08-22 07:34] VITALS: BP 127/76; PULSE 97; RESP 18; O2SAT 96
--- NOTE | 2017-08-22 07:43 | PD ---
Physical Exam Narrative GENERAL: 77 y/o female in no apparent distress SKIN: Focused skin assessment warm/dry. HEAD: Atraumatic. Normocephalic. EYES: Pupils equal and round. ENT: No nasal bleeding or discharge. Mucous membranes pink and moist. NECK: Trachea midline. RESPIRATORY: No accessory muscle use. MUSCULOSKELETAL: No obvious deformities. No clubbing. No cyanosis. NEUROLOGICAL: Awake and alert. moves all extremities. Normal speech. PSYCHIATRIC: Appropriate mood and affect; insight and judgment normal. Data Data Last Documented VS Vital Signs Date Time Temp Pulse Resp B/P (MAP) Pulse Ox O2 Delivery O2 Flow Rate FiO2 08/22/17 07:34 97 18 127/76 (93) 96 Room Air 08/22/17 03:07 99.0 Orders Orders Basic Metabolic Panel (Bmp) (08/22/17 03:36) Complete Blood Count With Diff (08/22/17 03:36) Lipase (08/22/17 03:36) Prothrombin Time / Inr (Pt) (08/22/17 03:36) Act Partial Throm Time (Ptt) (08/22/17 03:36) Urinalysis - C+S If Indicated (08/22/17 03:36) Ct Abd/Pel W/O Iv Contrast (08/22/17 03:36) Iv Access Insert/Monitor (08/22/17 03:36) Ecg Monitoring (08/22/17 03:36) Oximetry (08/22/17 03:36) Ondansetron Inj (Zofran Inj) (08/22/17 03:45) Sodium Chloride 0.9% Flush (Ns Flush) (08/22/17 03:45) Sodium Chlorid 0.9% 500 Ml Inj (Ns 500 M (08/22/17 03:45) Hepatic Functional Panel (08/22/17 05:07) Potassium Chloride (Kcl) (08/22/17 05:15) Prochlorperazine Inj (Compazine Inj) (08/22/17 05:30) Us Abdomen Gallbladder (08/22/17 ) Admit Order (Ed Use Only) (08/22/17 07:56) Admit To Inpatient (08/22/17 ) Vital Signs (Adult) Q4H (08/22/17 07:58) Activity Oob With Assistance (08/22/17 07:58) Diet Npo (08/22/17 Breakfast) Lactated Ringer's 1000 Ml Inj (Lr 1000 M (08/22/17 07:58) Sodium Chloride 0.9% Flush (Ns Flush) (08/22/17 08:00) Sodium Chloride 0.9% Flush (Ns Flush) (08/22/17 09:00) Acetaminophen (Tylenol) (08/22/17 08:00) Metoclopramide Inj (Reglan Inj) (08/22/17 08:00) Comprehensive Metabolic Panel (08/23/17 06:00) Complete Blood Count With Diff (08/23/17 06:00) Naloxone Inj (Narcan Inj) (08/22/17 08:00) Consult Gastroenterology (08/22/17 ) Levofloxacin 500 Mg Premix Inj (Levaquin (08/22/17 08:00) Labs Laboratory Tests Test 08/22/17 03:40 08/22/17 04:10 08/22/17 04:40 08/22/17 04:55 Blood Urea Nitrogen 7 MG/DL Creatinine 0.74 MG/DL Random Glucose 129 MG/DL Calcium Level 9.1 MG/DL Sodium Level 138 MEQ/L Potassium Level 3.1 MEQ/L Chloride Level 102 MEQ/L Carbon Dioxide Level 22.0 MEQ/L Anion Gap 14 MEQ/L Estimat Glomerular Filtration Rate 76 ML/MIN Lipase 213 U/L White Blood Count 4.5 TH/MM3 Red Blood Count 4.66 MIL/MM3 Hemoglobin 12.1 GM/DL Hematocrit 36.3 % Mean Corpuscular Volume 77.8 FL Mean Corpuscular Hemoglobin 25.8 PG Mean Corpuscular Hemoglobin Concent 33.2 % Red Cell Distribution Width 18.2 % Platelet Count 103 TH/MM3 Mean Platelet Volume 8.9 FL Neutrophils (%) (Auto) 91.0 % Lymphocytes (%) (Auto) 1.3 % Monocytes (%) (Auto) 5.0 % Eosinophils (%) (Auto) 1.9 % Basophils (%) (Auto) 0.8 % Neutrophils # (Auto) 4.1 TH/MM3 Lymphocytes # (Auto) 0.1 TH/MM3 Monocytes # (Auto) 0.2 TH/MM3 Eosinophils # (Auto) 0.1 TH/MM3 Basophils # (Auto) 0.0 TH/MM3 CBC Comment DIFF FINAL Differential Comment Urine Color YELLOW Urine Turbidity CLEAR Urine pH 7.5 Urine Specific [place] 1.010 Urine Protein NEG mg/dL Urine Glucose (UA) NEG mg/dL Urine Ketones NEG mg/dL Urine Occult Blood NEG Urine Nitrite NEG Urine Bilirubin NEG Urine Urobilinogen 1.0 MG/DL Urine Leukocyte Esterase NEG Urine RBC 0-3 /hpf Urine WBC 0-2 /hpf Urine Squamous Epithelial Cells > 8 /hpf Microscopic Urinalysis Comment CULT NOT INDICATED Prothrombin Time 11.3 SEC Prothromb Time International Ratio 1.1 RATIO Activated Partial Thromboplast Time 25.8 SEC Test 08/22/17 05:12 Total Bilirubin 2.1 MG/DL Direct Bilirubin 1.4 MG/DL Indirect Bilirubin 0.7 MG/DL Aspartate Amino Transf (AST/SGOT) 317 U/L Alanine Aminotransferase (ALT/SGPT) 83 U/L Alkaline Phosphatase 179 U/L Total Protein 7.5 GM/DL Albumin 3.7 GM/DL [facility] Supervised Visit with SERINA: No Interpretation(s) Last 24 hours Impressions Abdomen/Pelvis CT 08/22/17 0336 Signed Impressions: CONCLUSION: 1. There is nondistention of the colon without significant inflammatory change s. 2. Scattered diverticulosis without diverticulitis. 3. Minimal stranding posterior to the pancreas of uncertain etiology but could represent pancreatitis in the right clinical setting. 4. Cholelithiasis. 5. Hepatic low densities, likely benign. 6. Scattered retroperitoneal lymphadenopathy largest measuring 13 mm. Gall Bladder Ultrasound 08/22/17 0000 Signed Impressions: CONCLUSION: 1. Cholelithiasis with intrahepatic and extrahepatic bile duct dilatation. No stone is visualized in the common duct on this examination but on recent CT in retrospect there are small high density structures in the distal common duct reyes spicious for distal common bile duct stones. 2. Pancreas has a normal appearance on this examination but demonstrated mild inflammatory change adjacent to the pancreas on recent CT. 3. There are benign-appearing hepatic and right renal cysts. Narrative Course signed over to me to follow us and admit patient updated and agrees to transfer Physician Communication Physician Communication dr waterman states to transfer to [facility] and keep npo and will follow dr jarrett agrees to admit Diagnosis Primary Impression: Choledocholithiasis Additional Impressions: Abdominal pain Qualified Codes: R10.9 - Unspecified abdominal pain Vomiting Qualified Codes: R11.2 - Nausea with vomiting, unspecified Admitting Information Admitting Physician Requests: Admit Melida Murray MD Aug 22, 2017 07:43
[2017-08-22] MEDS ORDERED: METOCLOPRAMIDE HCL 10 MG/2 ML VIAL IV PUSH PRN (08:00)
[2017-08-22] MEDS ORDERED: LEVOFLOXACIN 500 MG PREMIX INJ 100 ML IV SCH (08:00)
[2017-08-22] MEDS ORDERED: NALOXONE HCL 0.4 MG/ML AMP IV PUSH PRN (08:00)
[2017-08-22] MEDS: LACTATED RINGER'S 1000 ML INJ 1,000 ML IV SCH ×2 (08:58→17:40)
[2017-08-22] MEDS: SODIUM CHLORIDE 0.9% FLUSH 10 ML FLUSH IV FLUSH SCH ×2 (09:00→20:14)
[2017-08-22] MEDS ORDERED: KETOROLAC TROMETHAMINE 30 MG/ML (IVP) VIAL IV PUSH ONE (09:30)
[2017-08-22 12:00] VITALS: BP 127/73; PULSE 88; RESP 18; TEMP 98.1; O2SAT 96
[2017-08-22] MEDS ORDERED: DILTIAZEM-CD 120 MG CAP ER PO ONE (13:00)
--- NOTE | 2017-08-22 13:24 | HHI.HP ---
[facility] Service [place] [facility] Primary Care Physician Irving Sam, Admission Diagnosis Choledocholithiasis, abdominal pain Diagnoses: Chief Complaint: Abdominal pain Travel History International Travel<30 Days: No Contact w/Intl Traveler <30 Da: No Traveled to Known Affected Are: No History of Present Illness This is a 77-year-old female who presented to the emergency department complaining of acute onset of severe right flank achiness radiating to her back and right shoulder associated with nausea, vomiting and loose stools. States her symptoms started after having [employer] [place] at dinner. Denies fever, chills and UTI symptoms. ER workup shows minimal stranding posterior to the pancreas, cholelithiasis with intrahepatic and extrahepatic bile duct dilatation. 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 At this time, she has no complaints. Reports history of dilated ducts underwent extensive GI workup years ago including HIDA scan. All other systems reviewed negative Review of Systems Except as stated in HPI: all other systems reviewed are Neg Past Family Social History Past Medical History A. fib on Eliquis and Cardizem followed by Dr. Mancini, leukopenia and thrombocytopenia followed by Dr. Oakes, GERD, hypertension, osteoarthritis and migraines. Past Surgical History Appendectomy, right ankle and right eye surgery, hysterectomy, tonsillectomy and adenoidectomy and bilateral carpal tunnel surgery Reported Medications Eliquis (Apixaban) 2.5 Mg Tab 2.5 Mg PO BID Centrum Silver Women Tablet (Multivit-Min/Iron/Folic/Lutein) 1 Each Tablet 1 Tab PO DAILY Magnesium Gluconate 500 Mg Tab 500 Mg PO DAILY Pantoprazole (Pantoprazole Sodium) 20 Mg Tab 20 Mg PO DAILY Potassium Chloride ER (Potassium Chloride) 20 Meq Tab 20 Meq PO DAILY Lasix (Furosemide) 20 Mg Tab 20 Mg PO DAILY Cardizem CD 24 HR (Diltiazem CD 24 HR) 120 Mg Caper 120 Mg PO DAILY Allergies: Coded Allergies: adhesive (Unverified Allergy, Severe, REDNESS, 08/22/17) cefazolin (Unverified Allergy, Severe, FLUSHING, 08/22/17) garlic (Verified Allergy, Severe, Migraine, 08/22/17) levofloxacin (Verified Allergy, Intermediate, HIVES, 08/22/17) acebutolol (Unverified Allergy, Unknown, 08/22/17) aspirin (Unverified Allergy, Unknown, 08/22/17) atenolol (Unverified Allergy, Unknown, 08/22/17) benazepril (Unverified Allergy, Unknown, 08/22/17) betaxolol (Unverified Allergy, Unknown, 08/22/17) captopril (Unverified Allergy, Unknown, 08/22/17) carvedilol (Unverified Allergy, Unknown, 08/22/17) cephalexin (Unverified Allergy, Unknown, 08/22/17) codeine (Unverified Allergy, Unknown, vomit, 08/22/17) diatrizoate meglumine (Unverified Allergy, Unknown, 08/22/17) enalaprilat (Unverified Allergy, Unknown, 08/22/17) erythromycin base (Unverified Allergy, Unknown, 08/22/17) fosinopril (Unverified Allergy, Unknown, 08/22/17) gadobenic acid (Unverified Allergy, Unknown, 08/22/17) gadodiamide (Unverified Allergy, Unknown, 08/22/17) gadoteridol (Unverified Allergy, Unknown, 08/22/17) iodixanol (Unverified Allergy, Unknown, 08/22/17) iohexol (Unverified Allergy, Unknown, 08/22/17) labetalol (Unverified Allergy, Unknown, 08/22/17) latex (Unverified Allergy, Unknown, 08/22/17) lisinopril (Unverified Allergy, Unknown, 08/22/17) metoprolol (Unverified Allergy, Unknown, 08/22/17) nebivolol (Unverified Allergy, Unknown, 08/22/17) penicillin G (Unverified Allergy, Unknown, 08/22/17) pindolol (Unverified Allergy, Unknown, 08/22/17) propranolol (Unverified Allergy, Unknown, 08/22/17) quinapril (Unverified Allergy, Unknown, 08/22/17) sotalol (Unverified Allergy, Unknown, 08/22/17) timolol (Unverified Allergy, Unknown, 08/22/17) Family History No CAD Social History Drinks 2 glasses of wine daily does not smoke Physical Exam Vital Signs Vital Signs Date Time Temp Pulse Resp B/P (MAP) Pulse Ox O2 Delivery O2 Flow Rate FiO2 08/22/17 12:00 98.1 88 18 127/73 (91) 96 08/22/17 09:41 08/22/17 07:34 97 18 127/76 (93) 96 Room Air 08/22/17 05:44 74 16 119/67 (84) Room Air 08/22/17 03:07 99.0 90 18 190/87 (121) 97 Physical Exam GENERAL: This is a well-nourished, well-developed patient, in no apparent distress. SKIN: No rashes, ecchymoses or lesions. Cool and dry. HEAD: Atraumatic. Normocephalic. No temporal or scalp tenderness. EYES: Pupils equal round and reactive. Extraocular motions intact. No scleral icterus. No injection or drainage. ENT: Nose without bleeding, purulent drainage or septal hematoma. Throat without erythema, tonsillar hypertrophy or exudate. Uvula midline. Airway patent. NECK: Trachea midline. No JVD or lymphadenopathy. Supple, nontender, no meningeal signs. CARDIOVASCULAR: Irregular irregular RESPIRATORY: Clear to auscultation. Breath sounds equal bilaterally. No wheezes , rales, or rhonchi. GASTROINTESTINAL: Abdomen soft, non-tender, nondistended. No guarding. MUSCULOSKELETAL: Extremities without clubbing, cyanosis with bilateral lower extremity pitting edema. Resolving contusion right anterior leg. No calf tenderness. Negative Homans sign bilaterally. NEUROLOGICAL: Awake and alert. Cranial nerves II through XII intact. Motor and sensory grossly within normal limits. Five out of 5 muscle strength in all muscle groups. Normal speech. Laboratory Laboratory Tests Test 08/22/17 03:40 08/22/17 04:10 08/22/17 04:40 08/22/17 04:55 Blood Urea Nitrogen 7 Creatinine 0.74 Random Glucose 129 Calcium Level 9.1 Sodium Level 138 Potassium Level 3.1 Chloride Level 102 Carbon Dioxide Level 22.0 Anion Gap 14 Estimat Glomerular Filtration Rate 76 Lipase 213 White Blood Count 4.5 Red Blood Count 4.66 Hemoglobin 12.1 Hematocrit 36.3 Mean Corpuscular Volume 77.8 Mean Corpuscular Hemoglobin 25.8 Mean Corpuscular Hemoglobin Concent 33.2 Red Cell Distribution Width 18.2 Platelet Count 103 Mean Platelet Volume 8.9 Neutrophils (%) (Auto) 91.0 Lymphocytes (%) (Auto) 1.3 Monocytes (%) (Auto) 5.0 Eosinophils (%) (Auto) 1.9 Basophils (%) (Auto) 0.8 Neutrophils # (Auto) 4.1 Lymphocytes # (Auto) 0.1 Monocytes # (Auto) 0.2 Eosinophils # (Auto) 0.1 Basophils # (Auto) 0.0 CBC Comment DIFF FINAL Differential Comment Urine Color YELLOW Urine Turbidity CLEAR Urine pH 7.5 Urine Specific [place] 1.010 Urine Protein NEG Urine Glucose (UA) NEG Urine Ketones NEG Urine Occult Blood NEG Urine Nitrite NEG Urine Bilirubin NEG Urine Urobilinogen 1.0 Urine Leukocyte Esterase NEG Urine RBC 0-3 Urine WBC 0-2 Urine Squamous Epithelial Cells > 8 Microscopic Urinalysis Comment CULT NOT INDICATED Prothrombin Time 11.3 Prothromb Time International Ratio 1.1 Activated Partial Thromboplast Time 25.8 Test 08/22/17 05:12 Magnesium Level 1.6 Total Bilirubin 2.1 Direct Bilirubin 1.4 Indirect Bilirubin 0.7 Aspartate Amino Transf (AST/SGOT) 317 Alanine Aminotransferase (ALT/SGPT) 83 Alkaline Phosphatase 179 Total Protein 7.5 Albumin 3.7 Result Diagram: 08/22/17 0410 08/22/17 0340 Imaging Last Impressions Abdomen/Pelvis CT 08/22/17 0336 Signed Impressions: CONCLUSION: 1. There is nondistention of the colon without significant inflammatory change s. 2. Scattered diverticulosis without diverticulitis. 3. Minimal stranding posterior to the pancreas of uncertain etiology but could represent pancreatitis in the right clinical setting. 4. Cholelithiasis. 5. Hepatic low densities, likely benign. 6. Scattered retroperitoneal lymphadenopathy largest measuring 13 mm. Gall Bladder Ultrasound 08/22/17 0000 Signed Impressions: CONCLUSION: 1. Cholelithiasis with intrahepatic and extrahepatic bile duct dilatation. No stone is visualized in the common duct on this examination but on recent CT in retrospect there are small high density structures in the distal common duct reyes spicious for distal common bile duct stones. 2. Pancreas has a normal appearance on this examination but demonstrated mild inflammatory change adjacent to the pancreas on recent CT. 3. There are benign-appearing hepatic and right renal cysts. Caprini VTE Risk Assessment Caprini VTE Risk Assessment: Mod/High Risk (score >= 2) Caprini Risk Assessment Model Point Value = 1 Point Value = 2 Point Value = 3 Point Value = 5 Age 41-60 Minor surgery BMI > 25 kg/m2 Swollen legs Varicose veins or History of unexplained or recurrent spontaneous Oral contraceptives or hormone replacement Sepsis (< 1 month) Serious lung disease, including pneumonia (< 1 month) Abnormal pulmonary function Acute myocardial infarction Congestive heart failure (< 1 month) History of inflammatory bowel disease Medical patient at bed rest Age 61-74 Arthroscopic surgery Major open surgery (> 45 min) Laparoscopic surgery (> 45 min) Malignancy Confined to bed (> 72 hours) Immobilizing plaster cast Central venous access Age >= 75 History of VTE Family history of VTE Factor V Leiden Prothrombin [id number] Lupus anticoagulant Anticardiolipin antibodies Elevated serum homocysteine Heparin-induced thrombocytopenia Other congenital or acquired thrombophilia Stroke (< 1 month) Elective arthroplasty Hip, pelvis, or leg fracture Acute spinal cord injury (< 1 month) Prophylaxis Regimen Total Risk Factor Score Risk Level Prophylaxis Regimen 0-1 Low Early ambulation 2 Moderate Order ONE of the following: *Sequential Compression Device (SCD) *Heparin 5000 units SQ BID 3-4 Higher Order ONE of the following medications: *Heparin 5000 units SQ TID *Enoxaparin/Lovenox 40 mg SQ daily (WT < 150 kg, CrCl > 30 mL/min) *Enoxaparin/Lovenox 30 mg SQ daily (WT < 150 kg, CrCl > 10-29 mL/min) *Enoxaparin/Lovenox 30 mg SQ BID (WT < 150 kg, CrCl > 30 mL/min) AND/OR *Sequential Compression Device (SCD) 5 or more Highest Order ONE of the following medications: *Heparin 5000 units SQ TID (Preferred with Epidurals) *Enoxaparin/Lovenox 40 mg SQ daily (WT < 150 kg, CrCl > 30 mL/min) *Enoxaparin/Lovenox 30 mg SQ daily (WT < 150 kg, CrCl > 10-29 mL/min) *Enoxaparin/Lovenox 30 mg SQ BID (WT < 150 kg, CrCl > 30 mL/min) AND *Sequential Compression Device (SCD) Assessment and Plan Problem List: (1) Choledocholithiasis ICD Code: K80.50 - Calculus of bile duct without cholangitis or cholecystitis without obstruction Status: Acute Assessment and Plan This is a 77-year-old female who presented to the emergency department complaining of acute onset of severe right flank achiness radiating to her back and right shoulder associated with nausea, vomiting and loose stools. States her symptoms started after having [employer] [place] at dinner. Denies fever, chills and UTI symptoms. ER workup shows minimal stranding posterior to the pancreas, cholelithiasis with intrahepatic and extrahepatic bile duct dilatation. Right upper quadrant pain with abnormal liver function tests, cholelithiasis with intra-hepatic and extrahepatic bile duct dilatation possible choledocholithiasis and pancreatitis. Keep patient n.p.o. continue IV hydration , IV aztreonam and Levaquin. Further management by GI Retroperitoneal lymphadenopathy. Outpatient follow-up with Dr. Oakes Hypokalemia. Replaced with 40 mg p.o. 1. Repeat BMP and magnesium in the morning Multiple medical conditions of A. fib on Eliquis and Cardizem followed by Dr. Mancini, leukopenia and thrombocytopenia followed by Dr. Oakes, GERD, hypertension, bilateral lower extremity edema on Lasix, osteoarthritis and migraines. Continue outpatient medications as appropriate DVT prophylaxis with SCD. Eliquis on hold pending GI evaluation Discussed Condition With Patient Jonathan Chu MD Aug 22, 2017 13:24
[2017-08-22] MEDS ORDERED: HALOPERIDOL LACTATE 5 MG/ML AMP IM PRN (13:30)
[2017-08-22] MEDS ORDERED: LORazepam 2 MG/ML VIAL IV PUSH PRN ×4 (13:30)
[2017-08-22] MEDS ORDERED: LORazepam 1 MG TAB PO PRN (13:30)
[2017-08-22] MEDS ORDERED: LORazepam 2 MG TAB PO PRN (13:30)
[2017-08-22] MEDS ORDERED: FLUMAZENIL 0.5 MG/5 ML VIAL IV PUSH PRN (13:30)
[2017-08-22] MEDS: MAGNESIUM OXIDE 400 MG TAB PO SCH (13:31)
[2017-08-22] MEDS: AZTREONAM INJ 1,000 MG in SODIUM CHLORIDE 0.9% INJ 100 ML IV SCH ×2 (13:31→23:48)
[2017-08-22 16:00] VITALS: BP 135/73; PULSE 83; RESP 18; TEMP 97.3; O2SAT 96
[2017-08-22 20:00] VITALS: BP 134/79; PULSE 68; RESP 16; TEMP 98.6; O2SAT 96
[2017-08-22] MEDS ORDERED: MORPHINE SULFATE 4 MG/ML INJ IV PUSH PRN (21:45)
[2017-08-22] MEDS: ACETAMINOPHEN 325 MG TAB PO PRN (21:56)
[2017-08-23] VITALS (9 sets, daily range): BP systolic 106–149; BP diastolic 59–95; PULSE 59–85; RESP 16–19; TEMP 97.1–100.8; O2SAT 92–98
[2017-08-23] MEDS: LACTATED RINGER'S 1000 ML INJ 1,000 ML IV SCH ×2 (02:00→13:58)
[2017-08-23 07:08] LABS: AUTOMATED NEUTROPHIL # 4.3 TH/MM3 (1.8-7.7); BASOPHIL % 0.1 % (0.0-2.0); EOSINOPHIL # 0.2 TH/MM3 (0-0.4); EOSINOPHIL % 3.1 % (0.0-4.0); HEMATOCRIT 35.1 % (35.0-46.0); LYMPH % 4.9 % (9.0-44.0); LYMPHOCYTE # 0.3 TH/MM3 (1.0-4.8); MEAN CELL VOLUME 79.9 FL (80.0-100.0); MEAN CORPUSCULAR HEMOGLOBIN 25.1 PG (27.0-34.0); MEAN CORPUSCULAR HGB CONC 31.4 % (32.0-36.0); MONO % 8.4 % (0.0-8.0); MONOCYTE # 0.4 TH/MM3 (0-0.9); NEUT % 83.5 % (16.0-70.0); PLATELET COUNT 103 TH/MM3 (150-450); RED CELL DISTRIBUTION WIDTH 19.3 % (11.6-17.2); WHITE BLOOD COUNT 5.2 TH/MM3 (4.0-11.0)
[2017-08-23 07:32] LABS: ALBUMIN 2.6 GM/DL (3.4-5.0); AST (GOT) 148 U/L (15-37); BICARBONATE 23.1 MEQ/L (21.0-32.0); BLOOD UREA NITROGEN 9 MG/DL (7-18); CALCIUM 8.2 MG/DL (8.5-10.1); CHLORIDE 105 MEQ/L (98-107); CREATININE 0.66 MG/DL (0.50-1.00); GLOMERULAR FILTRATION RATE 87 ML/MIN (>89); GLUCOSE,RANDOM 96 MG/DL (74-106); SODIUM (NA) 139 MEQ/L (136-145)
[2017-08-23 07:33] LABS: ALT (GPT) 86 U/L (10-53)
[2017-08-23 07:35] LABS: ALKALINE PHOSPHATASE 140 U/L (45-117); TOTAL BILIRUBIN ADULT 4.9 MG/DL (0.2-1.0); TOTAL PROTEIN 5.7 GM/DL (6.4-8.2)
[2017-08-23] MEDS: PANTOPRAZOLE SOD 20 MG DELAYED RELEASE TAB PO SCH (08:04)
[2017-08-23] MEDS: FUROSEMIDE 20 MG TAB PO SCH (08:04)
[2017-08-23] MEDS: DILTIAZEM-CD 120 MG CAP ER PO SCH (08:04)
[2017-08-23] MEDS: SODIUM CHLORIDE 0.9% FLUSH 10 ML FLUSH IV FLUSH SCH ×2 (08:05→22:04)
[2017-08-23] MEDS: POTASSIUM CHLORIDE 20 MEQ CONTROLLED RELEASE TAB PO SCH (08:05)
[2017-08-23] MEDS: FOLIC ACID 1 MG TAB PO SCH (08:06)
[2017-08-23] MEDS: THIAMINE HCL 100 MG TAB PO SCH (08:07)
[2017-08-23] MEDS: MULTIVITAMINS/MINERALS THERAPEUTIC TAB PO SCH (08:07)
--- NOTE | 2017-08-23 10:27 | HHI.PR ---
Subjective Remarks Follow-up abdominal pain. Denies abdominal pain. Developed rash on aztreonam no shortness of breath. Chronic pruritus Objective Vitals Vital Signs Date Time Temp Pulse Resp B/P (MAP) Pulse Ox O2 Delivery O2 Flow Rate FiO2 08/23/17 08:00 99.2 83 18 141/95 (110) 95 08/23/17 04:29 97.1 64 16 118/59 (78) 96 08/23/17 04:00 59 08/23/17 01:22 78 08/23/17 00:41 97.2 82 18 106/67 (80) 92 08/22/17 20:00 98.6 68 16 134/79 (97) 96 08/22/17 16:00 97.3 83 18 135/73 (93) 96 08/22/17 12:00 98.1 88 18 127/73 (91) 96 I/O 08/22/17 08/22/17 08/22/17 08/23/17 08/23/17 08/23/17 07:00 15:00 23:00 07:00 15:00 23:00 Intake Total 500 ml 178 ml 0 ml 1100 ml Balance 500 ml 178 ml 0 ml 1100 ml Intake Oral 0 ml IV Total 500 ml 178 ml 1100 ml # Voids 4 2 Result Diagram: 08/23/17 0519 08/23/17 0519 Imaging Last Impressions Abdomen/Pelvis CT 08/22/17 0336 Signed Impressions: CONCLUSION: 1. There is nondistention of the colon without significant inflammatory change s. 2. Scattered diverticulosis without diverticulitis. 3. Minimal stranding posterior to the pancreas of uncertain etiology but could represent pancreatitis in the right clinical setting. 4. Cholelithiasis. 5. Hepatic low densities, likely benign. 6. Scattered retroperitoneal lymphadenopathy largest measuring 13 mm. Gall Bladder Ultrasound 08/22/17 0000 Signed Impressions: CONCLUSION: 1. Cholelithiasis with intrahepatic and extrahepatic bile duct dilatation. No stone is visualized in the common duct on this examination but on recent CT in retrospect there are small high density structures in the distal common duct reyes spicious for distal common bile duct stones. 2. Pancreas has a normal appearance on this examination but demonstrated mild inflammatory change adjacent to the pancreas on recent CT. 3. There are benign-appearing hepatic and right renal cysts. Objective Remarks GENERAL: This is a well-nourished, well-developed patient, in no apparent distress. SKIN: No ecchymoses or lesions. Cool and dry. Resolving rash in the anterior chest CARDIOVASCULAR: Irregular irregular RESPIRATORY: Clear to auscultation. Breath sounds equal bilaterally. No wheezes , rales, or rhonchi. GASTROINTESTINAL: Abdomen soft, non-tender, nondistended. No guarding. MUSCULOSKELETAL: Extremities without clubbing, cyanosis with bilateral lower extremity pitting edema. Resolving contusion right anterior leg. No calf tenderness. Negative Homans sign bilaterally. NEUROLOGICAL: Awake and alert. Cranial nerves II through XII intact. Motor and sensory grossly within normal limits. Five out of 5 muscle strength in all muscle groups. Normal speech. A/P Problem List: (1) Choledocholithiasis ICD Code: K80.50 - Calculus of bile duct without cholangitis or cholecystitis without obstruction Status: Acute Assessment and Plan To be cellulitis who is this is a 77-year-old female who presented to the emergency department complaining of acute onset of severe right flank achiness radiating to her back and right shoulder associated with nausea, vomiting and loose stools. States her symptoms started after having [employer] [place] at dinner. Denies fever, chills and UTI symptoms. ER workup shows minimal stranding posterior to the pancreas, cholelithiasis with intrahepatic and extrahepatic bile duct dilatation. Right upper quadrant pain with abnormal liver function tests, cholelithiasis with intra-hepatic and extrahepatic bile duct dilatation possible choledocholithiasis and pancreatitis. No abdominal pain today. Continue IV hydration Further management by GI Retroperitoneal lymphadenopathy. Outpatient follow-up with Dr. Oakes Hypokalemia. Replace. Monitor r eplaced with 40 mg p.o. 1. Repeat BMP and magnesium in the morning Rash likely drug from aztreonam. Hx of multiple drug allergies. No respiratory compromise. Discontinue aztreonam. Benadryl as needed Multiple medical conditions of A. fib on Eliquis and Cardizem followed by Dr. Mancini, leukopenia and thrombocytopenia followed by Dr. Oakes, GERD, hypertension, bilateral lower extremity edema on Lasix, osteoarthritis and migraines. Continue outpatient medications as appropriate DVT prophylaxis with SCD. Eliquis on hold pending GI evaluation Jonathan Chu MD Aug 23, 2017 10:26
[2017-08-23] MEDS: MAGNESIUM OXIDE 400 MG TAB PO SCH (11:13)
[2017-08-23] MEDS: diphenhydrAMINE HCL 25 MG CAP PO PRN ×2 (11:13→17:42)
[2017-08-23] MEDS: ACETAMINOPHEN 325 MG TAB PO PRN ×2 (11:14→21:54)
--- NOTE | 2017-08-23 13:26 | EKG ---
Date Performed: 08/23/2017 Time Performed: 05:04:46 PTAGE: 77 years EKG: ATRIAL FIBRILLATION RIGHT BUNDLE BRANCH BLOCK ABNORMAL ECG PREVIOUS TRACING : 10/22/2016 06.19 Right bundle branch block is new since prior tracing. Clini josesito correlation recommended. DOCTOR: Hugo Deng Interpretating Date/Time 08/23/2017 13:25:40
[2017-08-23] MEDS: D5-1/2 NS + KCL 10 MEQ INJ 1,000 ML IV SCH ×2 (16:00→22:03)
--- NOTE | 2017-08-23 16:34 | MB ---
cc: Susy Connors MD DATE: 08/23/2017 DATE OF CONSULTATION: 08/23/2017. TYPE OF CONSULTATION: GI consult. REASON FOR CONSULTATION: Common bile duct stone. 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 The pain was sharp and severe and was not relieved until the patient went to the hospital and received pain medication. The patient at the current time is pain free for the last few hours and denies any other associated symptoms. The patient had change in urine color into dark tea color in appearance that lasted for 1 day. The patient denies any fever, chills or rigors. Denies any change in bowel habits including constipation, diarrhea. No history of change in weight or appetite. The patient denies reflux symptoms, heartburn, dysphagia, or other associated symptoms. The patient was seen at the [facility] emergency room, had a workup that showed evidence of cholestasis and imaging studies suggestive of CBD stone. She was transferred to the hospital here for possible ERCP and further management. REVIEW OF SYSTEMS: All 14-point review of system negative except the ones in the history of present illness. FAMILY HISTORY: Negative. PSYCHOSOCIAL HISTORY: Drinks 2 glasses of wine daily. No smoking or IV drug abuse. PAST MEDICAL HISTORY: Atrial fibrillation, on chronic anticoagulation, leukopenia, thrombocytopenia, gastroesophageal reflux disease, hypertension, osteoarthritis, chronic migraine headache. PAST SURGICAL HISTORY: Appendectomy, right ankle and right eye surgery, hysterectomy, tonsillectomy, adenectomy, bilateral carpal tunnel syndrome. MEDICATIONS AT HOME: Eliquis, Centrum, magnesium, pantoprazole, potassium chloride, Lasix and Cardizem. ALLERGIES: MULTIPLE ALLERGIES LISTED IN THE H and P, INCLUDING PROPOFOL AND IV CONTRAST. PHYSICAL EXAMINATION: GENERAL: The patient was found to be comfortable, not in distress or in pain, hemodynamically stable and afebrile. HEAD AND NECK: Showed jaundice, but well-nourished, well-hydrated patient. HEENT: Pupils equal and reactive to light. NECK: Supple neck. No lymphadenopathy. No thyromegaly. CHEST: Clear to auscultation bilaterally. No crackles or wheezes. HEART: Regular rate and rhythm. No murmurs. ABDOMEN: Soft. No tenderness at the current time. EXTREMITIES: Normal pulses. No edema. NEUROLOGIC: Cranial nerves 2-12 grossly intact. SKIN: No rashes. LABORATORY DATA: Showed a total bilirubin of 4.9, mostly direct. Alkaline phosphatase 140, AST 148, ALT 86. White blood cells 5.2, platelet count of 103, hemoglobin 12.1, hematocrit 36.3 with MCV 77, MCH 25.8. Imaging showed a dilated intrahepatic and extrahepatic biliary tree with cholelithiasis in the gallbladder and common bile duct showed evidence of distal CBD stone, confirmed by CT scan. ASSESSMENT AND PLAN: This is a 77-year-old female patient who has multiple medical problems, who presented with the following problems: 1. Right upper quadrant abdominal pain radiating to her shoulder with nausea and vomiting that subsided after several hours. 2. Cholestatic increase in liver enzymes. 3. Chronic use of Eliquis for atrial fibrillation. 4. Imaging studies show evidence of a distal CBD stone and gallbladder stones with dilated duct. 5. Multiple comorbid conditions including atrial fibrillation and multiple previous surgeries. 6. MULTIPLE ALLERGIES INCLUDING PROPOFOL AND IV CONTRAST. PLAN: Will keep the patient n.p.o. after midnight for ERCP tomorrow. Eliquis was held for the last 48 hours. The procedure was explained to the patient, including risk, benefits and possible complication. The patient agreed to proceed with the procedure in a.m. Further recommendation to follow based on the findings. Thank you for the consult. MD PRAKASH Corbett/MARIEL , 03:30 PM , 04:33 PM SIRISHA
[2017-08-24] VITALS (7 sets, daily range): BP systolic 135–170; BP diastolic 65–96; PULSE 75–95; RESP 17–20; TEMP 98–99.1; O2SAT 94–99
[2017-08-24] MEDS ORDERED: LACTATED RINGER'S 1000 ML IV PRN (04:45)
[2017-08-24] MEDS ORDERED: CHLORHEXIDINE GLUCONATE 2 % 1 PACK (2 CLOTHS) TOPICAL PRN (04:45)
[2017-08-24] MEDS ORDERED: POVIDONE IODINE 5% (ANTISEPSIS KIT) 4 APPLICATIONS EACH NARE PRN (04:45)
[2017-08-24] MEDS ORDERED: SODIUM CHLORID 0.9% 500 ML IV PRN (04:45)
[2017-08-24] MEDS: DILTIAZEM-CD 120 MG CAP ER PO SCH (08:17)
[2017-08-24] MEDS: PANTOPRAZOLE SOD 20 MG DELAYED RELEASE TAB PO SCH (08:18)
[2017-08-24] MEDS: FOLIC ACID 1 MG TAB PO SCH (08:18)
[2017-08-24] MEDS: SODIUM CHLORIDE 0.9% FLUSH 10 ML FLUSH IV FLUSH SCH ×2 (08:18→20:02)
[2017-08-24] MEDS: FUROSEMIDE 20 MG TAB PO SCH (08:18)
[2017-08-24] MEDS: POTASSIUM CHLORIDE 20 MEQ CONTROLLED RELEASE TAB PO SCH (08:18)
[2017-08-24] MEDS: MULTIVITAMINS/MINERALS THERAPEUTIC TAB PO SCH (08:19)
[2017-08-24] MEDS: THIAMINE HCL 100 MG TAB PO SCH (08:19)
--- NOTE | 2017-08-24 09:58 | HHI.PR ---
Subjective Remarks Follow-up abdominal pain. Discussed with GI yesterday for ERCP. No pain. Has chronic pruritus and has eczema mid back which looks suspicious for cancer. States she is being monitored by a transfer pumper Objective Vitals Vital Signs Date Time Temp Pulse Resp B/P (MAP) Pulse Ox O2 Delivery O2 Flow Rate FiO2 08/24/17 08:00 98.0 78 18 159/80 (106) 97 08/24/17 04:48 98.0 78 18 151/81 (104) 96 08/24/17 00:00 82 08/23/17 23:35 97.8 79 18 128/74 (92) 98 08/23/17 20:00 80 08/23/17 20:00 100.8 85 18 149/74 (99) 95 08/23/17 16:00 98.5 82 19 123/69 (87) 95 08/23/17 12:00 98.5 85 18 134/74 (94) 96 I/O 08/23/17 08/23/17 08/23/17 08/24/17 08/24/17 08/24/17 07:00 15:00 23:00 07:00 15:00 23:00 Intake Total 1100 ml 1032 ml Output Total 650 ml Balance 1100 ml 1032 ml -650 ml Intake Oral 800 ml IV Total 1100 ml 232 ml Output Urine Total 650 ml # Voids 2 5 Result Diagram: 08/23/17 0519 08/23/17 0519 Imaging Last Impressions Abdomen/Pelvis CT 08/22/17 0336 Signed Impressions: CONCLUSION: 1. There is nondistention of the colon without significant inflammatory change s. 2. Scattered diverticulosis without diverticulitis. 3. Minimal stranding posterior to the pancreas of uncertain etiology but could represent pancreatitis in the right clinical setting. 4. Cholelithiasis. 5. Hepatic low densities, likely benign. 6. Scattered retroperitoneal lymphadenopathy largest measuring 13 mm. Gall Bladder Ultrasound 08/22/17 0000 Signed Impressions: CONCLUSION: 1. Cholelithiasis with intrahepatic and extrahepatic bile duct dilatation. No stone is visualized in the common duct on this examination but on recent CT in retrospect there are small high density structures in the distal common duct reyes spicious for distal common bile duct stones. 2. Pancreas has a normal appearance on this examination but demonstrated mild inflammatory change adjacent to the pancreas on recent CT. 3. There are benign-appearing hepatic and right renal cysts. Objective Remarks GENERAL: This is a well-nourished, well-developed patient, in no apparent distress. SKIN: Blood blister mid back CARDIOVASCULAR: Irregular irregular RESPIRATORY: Clear to auscultation. Breath sounds equal bilaterally. No wheezes , rales, or rhonchi. GASTROINTESTINAL: Abdomen soft, non-tender, nondistended. No guarding. MUSCULOSKELETAL: Extremities without clubbing, cyanosis with bilateral lower extremity pitting edema. Resolving contusion right anterior leg. No calf tenderness. Negative Homans sign bilaterally. NEUROLOGICAL: Awake and alert. Cranial nerves II through XII intact. Motor and sensory grossly within normal limits. Five out of 5 muscle strength in all muscle groups. Normal speech. A/P Problem List: (1) Choledocholithiasis ICD Code: K80.50 - Calculus of bile duct without cholangitis or cholecystitis without obstruction Status: Acute Assessment and Plan This is a 77-year-old female who presented to the emergency department complaining of acute onset of severe right flank achiness radiating to her back and right shoulder associated with nausea, vomiting and loose stools. States her symptoms started after having [employer] at dinner. Denies fever, chills and UTI symptoms. ER workup shows minimal stranding posterior to the pancreas, cholelithiasis with intrahepatic and extrahepatic bile duct dilatation. Right upper quadrant pain with abnormal liver function tests, cholelithiasis with intra-hepatic and extrahepatic bile duct dilatation possible choledocholithiasis and gallstone pancreatitis. No abdominal pain today. Continue IV hydration Further management by GI for ERCP. GS consult per GI Retroperitoneal lymphadenopathy. Outpatient follow-up with Dr. Oakes Hypokalemia. Replaced Rash likely drug from aztreonam. Hx of multiple drug allergies. No respiratory compromise. Discontinue aztreonam. Benadryl as needed Blood blister, back. Ct to monitor advised to avoid scratching Multiple medical conditions of A. fib on Eliquis and Cardizem followed by Dr. Mancini, leukopenia and thrombocytopenia followed by Dr. Oakes, GERD, hypertension, bilateral lower extremity edema on Lasix, osteoarthritis and migraines. Continue outpatient medications as appropriate DVT prophylaxis with SCD. Eliquis on hold pending GI evaluation Jonathan Chu MD Aug 24, 2017 09:58
[2017-08-24] MEDS: MAGNESIUM OXIDE 400 MG TAB PO SCH (11:02)
[2017-08-24] MEDS: ACETAMINOPHEN 325 MG TAB PO PRN (17:45)
--- NOTE | 2017-08-24 17:49 | HHI.GIFU ---
GI Follow-up Note Consult Follow-up Subjective: Patient laying in bed comfortably, no new complaints except icterus , and being hungry Objective: PHYSICAL EXAMINATION: Vitals signs stable No fever HEENT: Pupils round and reactive to light; normocephalic; atraumatic; no jaundice. Throat is clear. NECK: Neck is supple, no JVD, no lymphadenopathy. CHEST: Chest is clear to auscultation and percussion. CARDIAC: Regular rate and rhythm with no murmur gallop or rubs. ABDOMEN: Soft, nondistended, nontender; no hepatosplenomegaly; bowel sounds are present in all four quadrants. EXTREMITIES: No clubbing, cyanosis, or edema. SKIN: Normal; no rash; no jaundice. CRITICAL CARE EDUCATOR: No focal deficits; alert and oriented times three. Available Data (labs, X- Rays, Procedues) : Vital Signs Date Time Temp Pulse Resp B/P (MAP) Pulse Ox O2 Delivery O2 Flow Rate FiO2 08/24/17 16:00 98.4 94 20 153/90 (111) 99 08/24/17 12:00 98.2 95 20 170/96 (120) 98 Last Impressions Abdomen/Pelvis CT 08/22/17 0336 Signed Impressions: CONCLUSION: 1. There is nondistention of the colon without significant inflammatory change s. 2. Scattered diverticulosis without diverticulitis. 3. Minimal stranding posterior to the pancreas of uncertain etiology but could represent pancreatitis in the right clinical setting. 4. Cholelithiasis. 5. Hepatic low densities, likely benign. 6. Scattered retroperitoneal lymphadenopathy largest measuring 13 mm. Gall Bladder Ultrasound 08/22/17 0000 Signed Impressions: CONCLUSION: 1. Cholelithiasis with intrahepatic and extrahepatic bile duct dilatation. No stone is visualized in the common duct on this examination but on recent CT in retrospect there are small high density structures in the distal common duct reyes spicious for distal common bile duct stones. 2. Pancreas has a normal appearance on this examination but demonstrated mild inflammatory change adjacent to the pancreas on recent CT. 3. There are benign-appearing hepatic and right renal cysts. Laboratory Tests Test 08/23/17 05:19 White Blood Count 5.2 TH/MM3 Red Blood Count 4.40 MIL/MM3 Hemoglobin 11.0 GM/DL Hematocrit 35.1 % Mean Corpuscular Volume 79.9 FL Mean Corpuscular Hemoglobin 25.1 PG Mean Corpuscular Hemoglobin Concent 31.4 % Red Cell Distribution Width 19.3 % Platelet Count 103 TH/MM3 Mean Platelet Volume 9.0 FL Neutrophils (%) (Auto) 83.5 % Lymphocytes (%) (Auto) 4.9 % Monocytes (%) (Auto) 8.4 % Eosinophils (%) (Auto) 3.1 % Basophils (%) (Auto) 0.1 % Neutrophils # (Auto) 4.3 TH/MM3 Lymphocytes # (Auto) 0.3 TH/MM3 Monocytes # (Auto) 0.4 TH/MM3 Eosinophils # (Auto) 0.2 TH/MM3 Basophils # (Auto) 0.0 TH/MM3 CBC Comment DIFF FINAL Differential Comment Blood Urea Nitrogen 9 MG/DL Creatinine 0.66 MG/DL Random Glucose 96 MG/DL Total Protein 5.7 GM/DL Albumin 2.6 GM/DL Calcium Level 8.2 MG/DL Alkaline Phosphatase 140 U/L Aspartate Amino Transf (AST/SGOT) 148 U/L Alanine Aminotransferase (ALT/SGPT) 86 U/L Total Bilirubin 4.9 MG/DL Sodium Level 139 MEQ/L Potassium Level 3.6 MEQ/L Chloride Level 105 MEQ/L Carbon Dioxide Level 23.1 MEQ/L Anion Gap 11 MEQ/L Estimat Glomerular Filtration Rate 87 ML/MIN ASSESSMENT/PLAN: Seen and examined, Patient refused ercp today because she did not get a good vibe from the GI nurse. She is agreeable for tomorrow. Heart healthy diet today, NPO after midnight. Repeat labs. It was a pleasure seeing Carri Gerardo Thank you for this consult. Entered by: Dudley Bliss MD Aug 24, 2017 17:49
[2017-08-24] MEDS: D5-1/2 NS + KCL 10 MEQ INJ 1,000 ML IV SCH (19:00)
[2017-08-24] MEDS: diphenhydrAMINE HCL 25 MG CAP PO PRN (21:59)
[2017-08-25] VITALS (9 sets, daily range): BP systolic 133–166; BP diastolic 73–91; PULSE 18–103; RESP 16–18; TEMP 97.2–98.4; O2SAT 94–98
[2017-08-25] MEDS: D5-1/2 NS + KCL 10 MEQ INJ 1,000 ML IV SCH (02:24)
[2017-08-25 07:27] LABS: BASOPHIL % 0.4 % (0.0-2.0); EOSINOPHIL # 0.3 TH/MM3 (0-0.4); EOSINOPHIL % 11.6 % (0.0-4.0); HEMATOCRIT 32.8 % (35.0-46.0); HEMOGLOBIN 10.4 GM/DL (11.6-15.3); LYMPH % 6.3 % (9.0-44.0); LYMPHOCYTE # 0.2 TH/MM3 (1.0-4.8); MEAN CELL VOLUME 79.1 FL (80.0-100.0); MEAN CORPUSCULAR HEMOGLOBIN 25.1 PG (27.0-34.0); MEAN CORPUSCULAR HGB CONC 31.8 % (32.0-36.0); MEAN PLATELET VOLUME 8.6 FL (7.0-11.0); MONO % 10.9 % (0.0-8.0); MONOCYTE # 0.3 TH/MM3 (0-0.9); NEUT % 70.8 % (16.0-70.0); PLATELET COUNT 88 TH/MM3 (150-450); RED BLOOD COUNT 4.14 MIL/MM3 (4.00-5.30); RED CELL DISTRIBUTION WIDTH 19.4 % (11.6-17.2); WHITE BLOOD COUNT 2.8 TH/MM3 (4.0-11.0)
[2017-08-25 07:40] LABS: ALBUMIN 2.4 GM/DL (3.4-5.0); AST (GOT) 76 U/L (15-37); BICARBONATE 21.7 MEQ/L (21.0-32.0); BLOOD UREA NITROGEN 5 MG/DL (7-18); CALCIUM 8.2 MG/DL (8.5-10.1); CHLORIDE 105 MEQ/L (98-107); CREATININE 0.56 MG/DL (0.50-1.00); GLOMERULAR FILTRATION RATE 105 ML/MIN (>89); GLUCOSE,RANDOM 102 MG/DL (74-106); MAGNESIUM 1.6 MG/DL (1.5-2.5); SODIUM (NA) 138 MEQ/L (136-145)
[2017-08-25 07:41] LABS: ALT (GPT) 55 U/L (10-53)
[2017-08-25 07:43] LABS: ALKALINE PHOSPHATASE 154 U/L (45-117); TOTAL BILIRUBIN ADULT 3.6 MG/DL (0.2-1.0); TOTAL PROTEIN 5.7 GM/DL (6.4-8.2)
[2017-08-25] MEDS: DILTIAZEM-CD 120 MG CAP ER PO SCH (08:56)
[2017-08-25] MEDS: FOLIC ACID 1 MG TAB PO SCH (08:57)
[2017-08-25] MEDS: POTASSIUM CHLORIDE 20 MEQ CONTROLLED RELEASE TAB PO SCH (08:57)
[2017-08-25] MEDS: PANTOPRAZOLE SOD 20 MG DELAYED RELEASE TAB PO SCH (08:57)
[2017-08-25] MEDS: THIAMINE HCL 100 MG TAB PO SCH (08:58)
[2017-08-25] MEDS: FUROSEMIDE 20 MG TAB PO SCH ×2 (08:58→13:02)
[2017-08-25] MEDS: SODIUM CHLORIDE 0.9% FLUSH 10 ML FLUSH IV FLUSH SCH ×2 (08:58→21:00)
[2017-08-25] MEDS: MULTIVITAMINS/MINERALS THERAPEUTIC TAB PO SCH (08:58)
--- NOTE | 2017-08-25 09:41 | HHI.PR ---
Subjective Remarks in no acute distress. denies abdominal pain or nausea. awaiting ERCP. Objective Vitals Vital Signs Date Time Temp Pulse Resp B/P (MAP) Pulse Ox O2 Delivery O2 Flow Rate FiO2 08/25/17 08:00 98.3 103 18 158/91 (113) 94 08/25/17 04:25 98.4 85 18 152/74 (100) 94 08/25/17 04:00 70 08/25/17 00:17 97.6 94 18 142/88 (106) 97 08/25/17 00:00 98 08/24/17 20:29 99.1 86 17 135/65 (88) 94 08/24/17 20:00 75 08/24/17 19:09 20 08/24/17 16:00 98.4 94 20 153/90 (111) 99 08/24/17 12:00 98.2 95 20 170/96 (120) 98 I/O 08/24/17 08/24/17 08/24/17 08/25/17 08/25/17 08/25/17 07:00 15:00 23:00 07:00 15:00 23:00 Intake Total 1667 ml Output Total 650 ml 1300 ml Balance -650 ml 367 ml Intake Oral 0 ml IV Total 1667 ml Output Urine Total 650 ml 1300 ml # Voids 4 # Bowel Movements 0 Result Diagram: 08/25/17 0645 08/25/17 0645 Imaging Last Impressions Abdomen/Pelvis CT 08/22/17 0336 Signed Impressions: CONCLUSION: 1. There is nondistention of the colon without significant inflammatory change s. 2. Scattered diverticulosis without diverticulitis. 3. Minimal stranding posterior to the pancreas of uncertain etiology but could represent pancreatitis in the right clinical setting. 4. Cholelithiasis. 5. Hepatic low densities, likely benign. 6. Scattered retroperitoneal lymphadenopathy largest measuring 13 mm. Gall Bladder Ultrasound 08/22/17 0000 Signed Impressions: CONCLUSION: 1. Cholelithiasis with intrahepatic and extrahepatic bile duct dilatation. No stone is visualized in the common duct on this examination but on recent CT in retrospect there are small high density structures in the distal common duct reyes spicious for distal common bile duct stones. 2. Pancreas has a normal appearance on this examination but demonstrated mild inflammatory change adjacent to the pancreas on recent CT. 3. There are benign-appearing hepatic and right renal cysts. Objective Remarks GENERAL: This is a well-nourished, well-developed patient, in no apparent distress. CARDIOVASCULAR: Regular rate and regular rhythm without murmurs, gallops, or rubs. RESPIRATORY: Clear to auscultation. Breath sounds equal bilaterally. No wheezes , rales, or rhonchi. GASTROINTESTINAL: Abdomen soft, non-tender, nondistended. Normal, active bowel sounds MUSCULOSKELETAL: Extremities without clubbing, cyanosis, or edema. NEURO: Alert & Oriented x4 to person, place, time, situation. Moves all ext x4 Medications and IVs Inpatient Medications Acetaminophen (Tylenol) 650 mg Q4H PRN PO TEMP > 100.4 Last administered on at 17:45; Start 08/22/17 at 08:00 Aztreonam 1000 mg/ Sodium Chloride 100 ml @ 200 mls/hr Q12H IV Last administered on 08/22/17at 23:48; Start 08/22/17 at 12:00; Stop 08/23/17 at 10:30 ; Status DC Chlorhexidine Gluconate (Chlorhexidine 2% Cloth) 3 pack DEDICATED [employer]UCK [employer]IVER PRN TOPICAL SEE LABEL COMMENTS; Start 08/24/17 at 04:45; Stop 08/27/17 at 04:44 Diltiazem HCl (Cardizem Cd) 120 mg ONCE ONCE PO Last administered on at 13:31; Start 08/22/17 at 13:00; Stop 08/22/17 at 13:10; Status DC Diphenhydramine HCl (Benadryl) 25 mg Q4H PRN PO itchiong Last administered on at 21:59; Start 08/23/17 at 10:30 Flumazenil (Romazicon Inj) 0.2 mg Q1M PRN IV PUSH SEE LABEL COMMENTS; Start at 13:30 Folic Acid (Folate) 1 mg DAILY PO ; Start 08/23/17 at 09:00; Stop 08/28/17 at 08 :59 Furosemide (Lasix) 20 mg DAILY PO Last administered on 08/24/17at 08:18; Start 08/23/17 at 09:00 Haloperidol Lactate (Haldol Inj) 2 mg Q15M PRN IM SEE LABEL COMMENTS; Start at 13:30 Ketorolac Tromethamine (Toradol Inj) 15 mg ONCE ONCE IV PUSH Last administered on 08/22/17at 09:26; Start 08/22/17 at 09:30; Stop 08/22/17 at 09:31 ; Status DC Lactated Ringer's 1,000 ml @ 30 mls/hr Q24H PRN IV SEE LABEL COMMENTS; Start at 04:45; Stop 08/27/17 at 04:44 Levofloxacin/ Dextrose 100 ml @ 100 mls/hr Q24H IV ; Start 08/22/17 at 08:00; Stop 08/22/17 at 15:22; Status DC Lorazepam (Ativan Inj) 2 mg Q15M PRN IV PUSH CIWA > 20; Start 08/22/17 at 13:30 Lorazepam (Ativan) 2 mg Q2H PRN PO CIWA 11-14; Start 08/22/17 at 13:30 Magnesium Oxide (Mag-Ox) 400 mg DAILY@1100 PO Last administered on 08/24/17at 11 :02; Start 08/22/17 at 11:14 Metoclopramide HCl (Reglan Inj) 5 mg Q6H PRN IV PUSH NAUSEA OR VOMITING; Start 08/22/17 at 08:00 Morphine Sulfate (Morphine Inj) 2 mg Q4H PRN IV PUSH PAIN 6-10; Start 08/22/17 at 21:45 Multivitamins/ Minerals Therapeutic (Theragran M Tab) 1 tab DAILY PO ; Start at 09:00; Stop 08/28/17 at 08:59 Naloxone HCl (Narcan Inj) 0.4 mg UNSCH PRN IV PUSH SEE LABEL COMMENTS; Start at 08:00 Ondansetron HCl (Zofran Inj) 4 mg ONCE ONCE IVP Last administered on at 04:42; Start 08/22/17 at 03:45; Stop 08/22/17 at 03:46; Status DC Pantoprazole Sodium (Protonix) 20 mg DAILY PO Last administered on 08/25/17at 08 :57; Start 08/23/17 at 09:00 Potassium Chloride/Dextrose/ Sod Cl 1,000 ml @ 70 mls/hr [id number] IV Last administered on 08/25/17at 02:24; Start 08/23/17 at 16:00 Potassium Chloride (KCl) 20 meq DAILY PO Last administered on 08/25/17at 08:57; Start 08/23/17 at 09:00 Povidone Iodine (Betadine 5% Antisepsis Kit) 1 applic DEDICATED [employer]UCK [employer]IVER PRN EACH NARE SEE LABEL COMMENTS; Start 08/24/17 at 04:45; Stop 08/27/17 at 04:44 Prochlorperazine Edisylate (Compazine Inj) 10 mg ONCE ONCE IV PUSH Last administered on 08/22/17at 05:35; Start 08/22/17 at 05:30; Stop 08/22/17 at 05:31 ; Status DC Sodium Chloride 500 ml @ 30 mls/hr [id number] PRN IV SEE LABEL COMMENTS; Start at 04:45; Stop 08/27/17 at 04:44 Sodium Chloride (NS Flush) 2 ml BID IV FLUSH Last administered on 08/23/17at 22: 04; Start 08/22/17 at 09:00 Thiamine HCl (Vitamin B1) 100 mg DAILY PO ; Start 08/23/17 at 09:00 A/P Problem List: (1) Choledocholithiasis ICD Code: K80.50 - Calculus of bile duct without cholangitis or cholecystitis without obstruction Status: Acute Assessment and Plan A/P Right upper quadrant pain with abnormal liver function tests, cholelithiasis with intra-hepatic and extrahepatic bile duct dilatation possible choledocholithiasis and gallstone pancreatitis. No abdominal pain today. Continue IV hydration Further management by GI for ERCP. Retroperitoneal lymphadenopathy. Outpatient follow-up with Dr. Oakes Hypokalemia. Replaced Rash likely drug from aztreonam. Hx of multiple drug allergies. No respiratory compromise. Discontinued aztreonam. Benadryl as needed Multiple medical conditions of A. fib on Eliquis and Cardizem followed by Dr. Mancini, leukopenia and thrombocytopenia followed by Dr. Oakes, GERD, hypertension, bilateral lower extremity edema on Lasix, osteoarthritis and migraines. Continue outpatient medications as appropriate DVT prophylaxis with SCD. Eliquis on hold pending GI evaluation Discharge Planning awaiting GI w/u. Sabino Vicente MD Aug 25, 2017 09:41
[2017-08-25] MEDS: MAGNESIUM OXIDE 400 MG TAB PO SCH ×2 (10:53→13:02)
[2017-08-25] MEDS ORDERED: diphenhydrAMINE HCL 50 MG/ML VIAL ONE (10:55)
[2017-08-25] MEDS ORDERED: methylPREDNISolone SOD SUCC 125 MG/2 ML VIAL ONE (10:55)
--- NOTE | 2017-08-25 11:38 | GIPROC ---
[facility] [address] [facility]. [facility], [id number] ERCP PROCEDURE REPORT EXAM DATE: 08/25/2017 PATIENT NAME: Carri Gerardo MR #: [id number] BIRTHDATE: 1940 ATTENDING: Dudley Tate MD ORDER #: [id number] GLOBAL HUMAN RESOURCES DIRECTOR: Tamera Hardin and Milly Herring STATUS: inpatient INDICATIONS: The patient is a 77 yr old female here for an ERCP due to established bile duct stone(s), abdominal pain of suspected biliary origin, and abnormal liver function test PROCEDURE PERFORMED: ERCP with sphincterotomy/papillotomy ERCP with stent placement ERCP with removal of calculus/calculi MEDICATIONS: None and Per Anesthesia. CONSENT: The patient understands the risks and benefits of the procedure and understands that these risks include, but are not limited to: sedation, allergic reaction, infection, perforation and/or bleeding. Alternative means of evaluation and treatment include, among others: physical exam, x-rays, and/or surgical intervention. The patient elects to proceed with this endoscopic procedure. medical equipment was checked for proper function. Hand hygiene and appropriate measures for infection prevention was taken. After the risks, benefits and alternatives of the procedure were thoroughly explained, Informed was verified, confirmed and timeout was successfully executed by the treatment team. With the patient in left semi-prone position, medications were administered intravenously.The Pentax [id number] was passed from the mouth into the esophagus and further advanced from the esophagus into the stomach. From stomach scope was directed to the second portion of the duodenum. Major papilla was aligned with the duodenoscope. The scope position was confirmed fluoroscopically. Rest of the findings/therapeutics are given below. The scope was then completely withdrawn from the patient and the procedure completed. The pulse, BP, and O2 saturation were monitored and documented by the physician and the nursing staff throughout the entire procedure. The patient was cared for as planned according to standard protocol. The patient was then discharged to recovery in stable condition and with appropriate post procedure care. The ampulla was located the second portion of the duodenum, in a position more proximal than normal. Pancreatic duct normal. Dilated CBD to 8mm with ? filling defects x 2. % mm sphincterotomy with balloon sweep 11.5 mm balloon. Some debris ? stone removed. Duct not draining well.8.5Fr x 9cm biliary staent placed in the CBD. The ampulla appeared normal. ADVERSE EVENT: There were no complications. IMPRESSIONS: Normal appearing ampulla RECOMMENDATIONS: 1. Liver enzymes 2. Follow-up: GI clinic 2 week(s) REPEAT EXAM: Return 3 months ERCP Dudley Tate MD eSigned: Dudley Tate MD 08/25/2017 11:37 AM cc:
[2017-08-25] MEDS ORDERED: PROPOFOL 200 MG/20 ML AMP IV ONE (12:00)
--- NOTE | 2017-08-25 13:23 | RADRPT ---
EXAM DATE: 08/25/2017 1:18 PM EDT AGE/SEX: 77 years / Female INDICATIONS: Stent placement. CLINICAL DATA: This is the patient's initial encounter. Patient reports that signs and symptoms have been present for 1 day and indicates a pain score of Nonresponsive. MEDICAL/SURGICAL HISTORY: . Hypertension. Gastroesophageal reflux disease. Osteoarthritis. Hyst erectomy. Appendectomy. COMPARISON: [facility], US ABDOMEN - GALLBLADDER, 08/22/2017. . FINDINGS: An ERCP was performed by the ordering physician. The images demonstrate a nondilated pancreatic duct . There does appear to be some dilatation of the common bile duct. An internal biliary stent has been placed. See the full report by the web analytics developer. CONCLUSION: Placement of internal biliary stent.. Electronically signed by: Michi Rubalcava MD 08/25/2017 1:22 PM EDT
[2017-08-25] MEDS ORDERED: DO NOT ADM ANY ANTICOAGULANT DRUGS PRN (14:15)
--- NOTE | 2017-08-25 18:16 | MB ---
cc: To Chapin MD, Otakar MD DATE: 08/25/2017 HISTORY OF PRESENT ILLNESS: A 77-year-old white female, patient of Dr. Mancini, who presented with severe right flank pain radiating to her back, right shoulder associated with nausea, vomiting and loose stools. She was diagnosed with a calculus of the bile duct. Surgery is planned for tomorrow. The patient has had no angina or heart failure symptoms. She has history of chronic atrial fibrillation. She was cardioverted in the past, but went back into atrial fibrillation. She is anticoagulated with Eliquis. She was recently cleared by for her hip surgery by Dr. Mancini. PAST MEDICAL HISTORY: Positive for chronic atrial fibrillation, coronary artery disease. Her PET scan was positive for small mild apical perfusion defect. There is history of hysterectomy, appendectomy, bilateral carpal tunnel release, right ankle surgery, history of cardioversion on 2 occasions. There is also history of leukopenia and thrombocytopenia, followed by Dr. Oakes, gastroesophageal reflux disease, hypertension, osteoarthritis, and migraines. MEDICATIONS: 1. Diltiazem. 2. Lasix. 3. Potassium. 4. Pantoprazole. 5. Magnesium 6. Vitamin 7. Eliquis 2.5 mg twice a day. ALLERGIES: CEFAZOLIN, LEVOFLOXACIN, ALBUTEROL, ASPIRIN, ATENOLOL, BENAZEPRIL, CAPTOPRIL, CARVEDILOL, CEPHALEXIN, CODEINE, DIASPARTATE, MEGLUMINE, ENALAPRIL, ERYTHROMYCIN. FOSINOPRIL, GABABENIC AVID, DIOXIN, IOHEXOL, IODIXANOL, LABETALOL, LATEX, LISINOPRIL, METOPROLOL, PENICILLIN, PROPRANOLOL, QUINAPRIL, SOTALOL. SOCIAL HISTORY: The patient does not smoke. She drinks wine socially. FAMILY HISTORY: Negative for heart disease. REVIEW OF SYSTEMS: Otherwise negative. PHYSICAL EXAMINATION: VITAL SIGNS: Blood pressure 150/85, pulse 88 and regular. HEENT: Negative, 2+ carotid upstrokes. No bruits. LUNGS: Clear. HEART: Irregularly irregular with no murmur or gallop or rub. ABDOMEN: Soft. No bruits. EXTREMITIES: Without edema. 2+ distal pulses. NEUROLOGIC: Grossly nonfocal. CARDIOLOGY STUDIES: EKG was reviewed and showed atrial fibrillation, normal axis and right bundle branch block. Echocardiogram on 04/05/2016 showed ejection fraction 55-60%. Mild mitral and tricuspid regurgitation. Nuclear myocardial perfusion study on 08/29/2016 showed small apical partially reversible defect, was a low risk study. LABORATORY DATA: Hemoglobin 10.4, potassium 3.4, creatinine 0.6. AST and ALT elevated. DIAGNOSES: 1. Choledocholithiasis and gallstone pancreatitis. 2. Chronic atrial fibrillation. 3. Mild coronary artery disease. 4. Retroperitoneal lymphadenopathy. 5. Hypertension. 6. Mild mitral regurgitation. PLAN: Ms. Gerardo has had no recent angina or heart failure symptoms. She can be cleared for her surgery tomorrow. Her risk of perioperative cardiac complications is mildly increased, but not prohibitive. I recommend to restart her Eliquis as soon as possible after her surgery to decrease the risk of stroke due to her atrial fibrillation. I will follow her for cardiology during her hospitalization. MD HOMER Polanco/ , 05:18 PM , 06:14 PM SIRISHA
[2017-08-25] MEDS: ACETAMINOPHEN 325 MG TAB PO PRN (18:35)
[2017-08-25] MEDS: diphenhydrAMINE HCL 25 MG CAP PO PRN (18:35)
[2017-08-26 00:31] VITALS: BP 151/93; PULSE 81; RESP 17; TEMP 96; O2SAT 97
[2017-08-26 04:17] VITALS: BP 141/93; PULSE 65; RESP 18; TEMP 97.4; O2SAT 97
[2017-08-26] MEDS: THIAMINE HCL 100 MG TAB PO SCH (07:37)
[2017-08-26] MEDS: MULTIVITAMINS/MINERALS THERAPEUTIC TAB PO SCH (07:37)
[2017-08-26] MEDS: FOLIC ACID 1 MG TAB PO SCH (07:37)
[2017-08-26] MEDS: SODIUM CHLORIDE 0.9% FLUSH 10 ML FLUSH IV FLUSH SCH ×2 (07:37→20:13)
[2017-08-26] MEDS: DILTIAZEM-CD 120 MG CAP ER PO SCH (07:40)
[2017-08-26] MEDS: PANTOPRAZOLE SOD 20 MG DELAYED RELEASE TAB PO SCH (07:40)
[2017-08-26] MEDS: FUROSEMIDE 20 MG TAB PO SCH (07:40)
[2017-08-26 07:46] LABS: ALBUMIN 2.7 GM/DL (3.4-5.0); DIRECT BILIRUBIN ADULT 1.7 MG/DL (0.0-0.2)
[2017-08-26 07:47] LABS: INDIRECT BILIRUBIN 0.7 MG/DL (0.0-0.8); TOTAL BILIRUBIN ADULT 2.4 MG/DL (0.2-1.0); TOTAL PROTEIN 6.5 GM/DL (6.4-8.2)
[2017-08-26] MEDS: POTASSIUM CHLORIDE 20 MEQ CONTROLLED RELEASE TAB PO SCH (07:49)
[2017-08-26 08:00] VITALS: BP 149/84; PULSE 83; RESP 17; TEMP 97.7; O2SAT 95
--- NOTE | 2017-08-26 08:05 | MB ---
cc: Rafi Isaac MD DATE: 08/25/2017 CHIEF COMPLAINT: Choledocholithiasis, abdominal pain. HISTORY OF PRESENT ILLNESS: The patient is a 77-year-old female who presents with several medical issues. She presents with acute onset of abdominal pain. She states the pain was right lower quadrant, right upper quadrant, and migrated to her back. It was 8/10 at its worst, currently it is a 2/10, improved with pain meds. She states it is associated with nausea, vomiting and some diarrhea. She also had dark colored urine as well. She states that nothing alleviated it and it continued to get worse. She came to the emergency department for further evaluation including a CT scan and an ultrasound. These were noted to be concerning for choledocholithiasis. She was also noted to have a T bilirubin peak of 4.9, which is decreased to 3.6. She underwent GI workup including ERCP with sphincterotomy, stone removal and stent placement. She states much improvement from this. Surgery was consulted for evaluation and cholecystectomy. On my exam, the patient states her pain is much improved. She has never really had significant symptoms like this. She has had GI workup years ago, which was noted to be negative. PAST MEDICAL HISTORY: Migraines, osteoarthritis, hypertension, reflux, atrial fibrillation on Cardizem and Eliquis, thrombocytopenia. PAST SURGICAL HISTORY: Appendectomy, right ankle surgery, right eye surgery, hysterectomy, tonsillectomy, adenoidectomy and bilateral carpal tunnel. SOCIAL HISTORY: Denies smoking, etoh, ivda MEDICATIONS: See EMR. Eliquis. ALLERGIES: MULTIPLE ALLERGIES INCLUDING ALBUTEROL, ADHESIVE TAPE, ASPIRIN. ATENOLOL, AZTREONAM., BENAZEPRIL, BETAXOLOL, CAPTOPRIL, CARVEDILOL, CEFAZOLIN, CEPHALEXIN, CODEINE. DIATRIZOATE MEGLUMINE, ENALAPRILAT, ERYTHROMYCIN, FOSINOPRIL, GADOBENIC ACID, GADODIAMIDE, GADOTERIDOL, GARLIC, IODIXANOL, IOHEXOL, LABETALOL, LATEX, LEVOFLOXACIN, LISINOPRIL, METOPROLOL, NEBIVOLOL, PENICILLIN G, PINDOLOL, PROPRANOLOL. FAMILY HISTORY: Denies diabetes, cancer or hypertension. REVIEW OF SYSTEMS: GENERAL: Denies fever or chills. HEENT: Denies eye pain or ear pain. NECK: Denies swelling or pain. LUNGS: Denies cough or wheeze HEART: Denies palpitations or chest pain. ABDOMEN: Complains of nausea, vomiting and diarrhea and abdominal pain. GENITOURINARY: Denies dysuria, hematuria, change in color of urine. ENDOCRINE: Denies polyuria or polydipsia. INTEGUMENT: Denies any masses. Complains of back lesion. EXTREMITIES: Denies arthralgias, myalgias. PHYSICAL EXAMINATION: GENERAL: The patient in no acute distress. VITAL SIGNS: Admission vital signs are temperature 98.1, pulse 88, respiration 18, blood pressure 127/73, saturation 96%. HEENT: Pupils equal, round, reactive. NECK: Supple. Trachea midline. LUNGS: Clear to auscultation, bilateral expansion. HEART: S1, S2. Regular irregular. ABDOMEN: Soft, minimal tenderness to palpation, right-sided. No rebound, no guarding. Healed surgical scars. BACK: Normal curvature. A 2.5 x 2.5 cm dark pigmented lesion. No evidence of axillary adenopathy. EXTREMITIES: Warm and well perfused. NEUROLOGIC: GCS of 15, 5/5 motor in all extremities. PSYCHIATRIC: Appropriate mood, appropriate judgment. LABORATORY AND DIAGNOSTIC DATA: WBC 2.8, hemoglobin 10.4, hematocrit 32.8, platelets 88. Sodium 138, potassium 3.4, chloride 105, BUN is 5, creatinine 0.5, bilirubin 3.6, AST 76, ALT 55, lipase 213. INR is 1.1. IMAGING: CT scan reviewed by myself. Scattered diverticula, minimal strain in pancreas, cholelithiasis, low density hepatic cyst, scattered retroperitoneal adenopathy 1.3 mm. Ultrasound: Choledocholithiasis, dilation of intra-- and extrahepatic ducts. Pancreas normal, renal cyst. ASSESSMENT: The patient is a 77-year-old female, right upper and lower quadrant pain, choledocholithiasis, status post endoscopic retrograde cholangiopancreatography, sphincterotomy and stent placement. The patient also with back lesion concerning for melanomatous lesion. PLAN: After full clinical radiologic and laboratory workup, the patient with above-named issues. At this point, discussed with the patient needs laparoscopic cholecystectomy, possible open, possible intraoperative cholangiogram. The patient states understanding and agrees and would like to proceed. We will ask for cardiology clearance to assist in assessment of risk stratification, as patient with multiple medical issues including atrial fibrillation on Eliquis. Further, patient does have a back lesion. We will plan for a surgical biopsy during procedure. Again, discussed with the patient regarding concern for possible melanoma and may need further workup pending the pathologic results. MD VELVET Agee/ , 06:37 PM , 07:19 PM SIRISHA
--- NOTE | 2017-08-26 09:32 | HHI.PR ---
Subjective Remarks in no acute distress. no abdominal pain, nausea or vomiting. Objective Vitals Vital Signs Date Time Temp Pulse Resp B/P (MAP) Pulse Ox O2 Delivery O2 Flow Rate FiO2 08/26/17 04:17 97.4 65 18 141/93 (109) 97 08/26/17 00:31 96.0 81 17 151/93 (112) 97 08/25/17 20:24 97.2 87 16 133/73 (93) 98 08/25/17 20:12 97 08/25/17 16:00 97.6 18 18 150/85 (106) 97 08/25/17 12:02 97.0 88 18 141/82 (101) 97 08/25/17 12:00 97.9 83 18 166/87 (113) 95 I/O 08/25/17 08/25/17 08/25/17 08/26/17 08/26/17 08/26/17 07:00 15:00 23:00 07:00 15:00 23:00 Intake Total 500 ml 1063 ml Balance 500 ml 1063 ml Intake Oral 480 ml IV Total 583 ml Other 500 ml # Voids 4 5 4 # Bowel Movements 0 Result Diagram: 08/25/17 0645 08/25/17 0645 Imaging Last Impressions GI Procedure 08/25/17 0000 Signed Impressions: CONCLUSION: Placement of internal biliary stent.. Abdomen/Pelvis CT 08/22/17 0336 Signed Impressions: CONCLUSION: 1. There is nondistention of the colon without significant inflammatory change s. 2. Scattered diverticulosis without diverticulitis. 3. Minimal stranding posterior to the pancreas of uncertain etiology but could represent pancreatitis in the right clinical setting. 4. Cholelithiasis. 5. Hepatic low densities, likely benign. 6. Scattered retroperitoneal lymphadenopathy largest measuring 13 mm. Gall Bladder Ultrasound 08/22/17 0000 Signed Impressions: CONCLUSION: 1. Cholelithiasis with intrahepatic and extrahepatic bile duct dilatation. No stone is visualized in the common duct on this examination but on recent CT in retrospect there are small high density structures in the distal common duct reyes spicious for distal common bile duct stones. 2. Pancreas has a normal appearance on this examination but demonstrated mild inflammatory change adjacent to the pancreas on recent CT. 3. There are benign-appearing hepatic and right renal cysts. Objective Remarks GENERAL: This is a well-nourished, well-developed patient, in no apparent distress. CARDIOVASCULAR: Regular rate and regular rhythm without murmurs, gallops, or rubs. RESPIRATORY: Clear to auscultation. Breath sounds equal bilaterally. No wheezes , rales, or rhonchi. GASTROINTESTINAL: Abdomen soft, non-tender, nondistended. Normal, active bowel sounds MUSCULOSKELETAL: Extremities without clubbing, cyanosis, or edema. NEURO: Alert & Oriented x4 to person, place, time, situation. Moves all ext x4 Procedures ERCP Medications and IVs Inpatient Medications Acetaminophen (Tylenol) 650 mg Q4H PRN PO TEMP > 100.4 Last administered on at 18:35; Start 08/22/17 at 08:00 Aztreonam 1000 mg/ Sodium Chloride 100 ml @ 200 mls/hr Q12H IV Last administered on 08/22/17at 23:48; Start 08/22/17 at 12:00; Stop 08/23/17 at 10:30 ; Status DC Chlorhexidine Gluconate (Chlorhexidine 2% Cloth) 3 pack PULVERIZER OPERATOR PRN TOPICAL SEE LABEL COMMENTS; Start 08/24/17 at 04:45; Stop 08/27/17 at 04:44 Diltiazem HCl (Cardizem Cd) 120 mg ONCE ONCE PO Last administered on at 13:31; Start 08/22/17 at 13:00; Stop 08/22/17 at 13:10; Status DC Diphenhydramine HCl (Benadryl) 25 mg Q4H PRN PO itchiong Last administered on at 18:35; Start 08/23/17 at 10:30 Flumazenil (Romazicon Inj) 0.2 mg Q1M PRN IV PUSH SEE LABEL COMMENTS; Start at 13:30 Folic Acid (Folate) 1 mg DAILY PO ; Start 08/23/17 at 09:00; Stop 08/28/17 at 08 :59 Furosemide (Lasix) 20 mg DAILY PO Last administered on 08/26/17at 07:40; Start 08/23/17 at 09:00 Haloperidol Lactate (Haldol Inj) 2 mg Q15M PRN IM SEE LABEL COMMENTS; Start at 13:30 Ketorolac Tromethamine (Toradol Inj) 15 mg ONCE ONCE IV PUSH Last administered on 08/22/17at 09:26; Start 08/22/17 at 09:30; Stop 08/22/17 at 09:31 ; Status DC Lactated Ringer's 1,000 ml @ 30 mls/hr Q24H PRN IV SEE LABEL COMMENTS; Start at 04:45; Stop 08/27/17 at 04:44 Levofloxacin/ Dextrose 100 ml @ 100 mls/hr Q24H IV ; Start 08/22/17 at 08:00; Stop 08/22/17 at 15:22; Status DC Lorazepam (Ativan Inj) 2 mg Q15M PRN IV PUSH CIWA > 20; Start 08/22/17 at 13:30 Lorazepam (Ativan) 2 mg Q2H PRN PO CIWA 11-14; Start 08/22/17 at 13:30 Magnesium Oxide (Mag-Ox) 400 mg DAILY@1100 PO Last administered on 08/25/17at 13 :02; Start 08/22/17 at 11:14 Metoclopramide HCl (Reglan Inj) 5 mg Q6H PRN IV PUSH NAUSEA OR VOMITING; Start 08/22/17 at 08:00 Miscellaneous Information [place] [place] [facility] [place] ALL NURSING DEPARTME... UNSCH PRN .XX SEE LABEL COMMENTS; Start 08/25/17 at 14:15; Stop 08/26/17 at 14: 14 Morphine Sulfate (Morphine Inj) 2 mg Q4H PRN IV PUSH PAIN 6-10; Start 08/22/17 at 21:45 Multivitamins/ Minerals Therapeutic (Theragran M Tab) 1 tab DAILY PO ; Start at 09:00; Stop 08/28/17 at 08:59 Naloxone HCl (Narcan Inj) 0.4 mg UNSCH PRN IV PUSH SEE LABEL COMMENTS; Start at 08:00 Ondansetron HCl (Zofran Inj) 4 mg ONCE ONCE IVP Last administered on at 04:42; Start 08/22/17 at 03:45; Stop 08/22/17 at 03:46; Status DC Pantoprazole Sodium (Protonix) 20 mg DAILY PO Last administered on 08/26/17at 07 :40; Start 08/23/17 at 09:00 Potassium Chloride/Dextrose/ Sod Cl 1,000 ml @ 70 mls/hr [id number] IV Last administered on 08/25/17at 02:24; Start 08/23/17 at 16:00 Potassium Chloride (KCl) 20 meq DAILY PO Last administered on 08/26/17at 07:49; Start 08/23/17 at 09:00 Povidone Iodine (Betadine 5% Antisepsis Kit) 1 applic PULVERIZER OPERATOR PRN EACH NARE SEE LABEL COMMENTS; Start 08/24/17 at 04:45; Stop 08/27/17 at 04:44 Prochlorperazine Edisylate (Compazine Inj) 10 mg ONCE ONCE IV PUSH Last administered on 08/22/17at 05:35; Start 08/22/17 at 05:30; Stop 08/22/17 at 05:31 ; Status DC Sodium Chloride 500 ml @ 30 mls/hr [id number] PRN IV SEE LABEL COMMENTS; Start at 04:45; Stop 08/27/17 at 04:44 Sodium Chloride (NS Flush) 2 ml BID IV FLUSH Last administered on 08/23/17at 22: 04; Start 08/22/17 at 09:00 Thiamine HCl (Vitamin B1) 100 mg DAILY PO ; Start 08/23/17 at 09:00 A/P Problem List: (1) Choledocholithiasis ICD Code: K80.50 - Calculus of bile duct without cholangitis or cholecystitis without obstruction Status: Acute Assessment and Plan A/P Right upper quadrant pain with abnormal liver function tests, cholelithiasis with intra-hepatic and extrahepatic bile duct dilatation possible choledocholithiasis and gallstone pancreatitis. s/p ERCP with CBD dilation and stent placement. general surgery consult appreciated and plan for cholecystectomy. cleared by cardiology for the procedure. Retroperitoneal lymphadenopathy. Outpatient follow-up with Dr. Oakes Hypokalemia. Replaced Rash likely drug from aztreonam. Hx of multiple drug allergies. No respiratory compromise. Discontinued aztreonam. Benadryl as needed Multiple medical conditions of A. fib on Eliquis ( on hold for planned procedure ) and Cardizem , leukopenia and thrombocytopenia followed by Dr. Oakes, GERD, hypertension, bilateral lower extremity edema on Lasix, osteoarthritis and migraines. Continue outpatient medications as appropriate DVT prophylaxis with SCD. Eliquis on hold pending GI evaluation Discharge Planning for cholecystectomy. Sabino Vicente MD Aug 26, 2017 09:32
[2017-08-26 10:29] VITALS: O2SAT 97
[2017-08-26] MEDS: MAGNESIUM OXIDE 400 MG TAB PO SCH (11:00)
[2017-08-26] MEDS ORDERED: DEXAMETHASONE SOD PHOS 4 MG/ML VIAL IV ONE (12:00)
[2017-08-26] MEDS ORDERED: ROCURONIUM INJ 50 MG/5 ML SYRINGE IV PUSH ONE (12:00)
[2017-08-26] MEDS ORDERED: LACTATED RINGER'S 1000 ML INJ 1,000 ML IV ONE (12:00)
[2017-08-26] MEDS ORDERED: ONDANSETRON HCL 4 MG/2 ML VIAL IV PUSH ONE (12:00)
[2017-08-26] MEDS ORDERED: GLYCOPYRROLATE 1 MG/5 ML SYRINGE IV PUSH ONE (12:00)
[2017-08-26] MEDS ORDERED: LIDOCAINE HCL 1% PF 5 ML SYRINGE OTHER ONE (12:00)
[2017-08-26] MEDS ORDERED: PROPOFOL 200 MG/20 ML AMP IV ONE (12:00)
[2017-08-26] MEDS ORDERED: NEOSTIGMINE 5 MG/5 ML SYRINGE IV PUSH ONE (12:00)
--- NOTE | 2017-08-26 12:51 | PD.CARD.PN ---
Subjective Subjective Remarks No CP or SOB, no cardiac symptoms Objective Medications Current Medications Medications (Trade) Dose Ordered Sig/Linda Route Start Time Stop Time Status Last Admin (NS Flush) 2 ml UNSCH PRN IV FLUSH 08/22/17 08:00 (NS Flush) 2 ml BID IV FLUSH 08/22/17 09:00 08/23/17 22:04 (Tylenol) 650 mg Q4H PRN PO 08/22/17 08:00 08/25/17 18:35 (Reglan Inj) 5 mg Q6H PRN IV PUSH 08/22/17 08:00 (Narcan Inj) 0.4 mg UNSCH PRN IV PUSH 08/22/17 08:00 (Cardizem Cd) 120 mg DAILY PO 08/23/17 09:00 08/26/17 07:40 (Lasix) 20 mg DAILY PO 08/23/17 09:00 08/26/17 07:40 (Protonix) 20 mg DAILY PO 08/23/17 09:00 08/26/17 07:40 (KCl) 20 meq DAILY PO 08/23/17 09:00 08/26/17 07:49 (Mag-Ox) 400 mg DAILY@1100 PO 08/22/17 11:14 08/25/17 13:02 (Folate) 1 mg DAILY PO 08/23/17 09:00 08/28/17 08:59 (Vitamin B1) 100 mg DAILY PO 08/23/17 09:00 (Theragran M Tab) 1 tab DAILY PO 08/23/17 09:00 08/28/17 08:59 (Romazicon Inj) 0.2 mg Q1M PRN IV PUSH 08/22/17 13:30 (Ativan) 1 mg Q4H PRN PO 08/22/17 13:30 (Ativan Inj) 1 mg Q4H PRN IV PUSH 08/22/17 13:30 (Ativan) 2 mg Q2H PRN PO 08/22/17 13:30 (Ativan Inj) 2 mg Q2H PRN IV PUSH 08/22/17 13:30 (Ativan Inj) 2 mg Q1H PRN IV PUSH 08/22/17 13:30 (Ativan Inj) 2 mg Q15M PRN IV PUSH 08/22/17 13:30 (Haldol Inj) 2 mg Q15M PRN IM 08/22/17 13:30 (Morphine Inj) 2 mg Q4H PRN IV PUSH 08/22/17 21:45 (Benadryl) 25 mg Q4H PRN PO 08/23/17 10:30 08/25/17 18:35 Potassium Chloride/Dextrose/ Sod Cl 1,000 ml @ 70 mls/hr [id number] IV 08/23/17 16:00 08/25/17 02:24 Lactated Ringer's 1,000 ml @ 30 mls/hr Q24H PRN IV 08/24/17 04:45 08/27/17 04:44 08/26/17 11:30 Sodium Chloride 500 ml @ 30 mls/hr [id number] PRN IV 08/24/17 04:45 08/27/17 04:44 (Betadine 5% Antisepsis Kit) 1 applic SCIENTIFIC DATABASE CURATOR PRN EACH NARE 08/24/17 04:45 08/27/17 04:44 (Chlorhexidine 2% Cloth) 3 pack SCIENTIFIC DATABASE CURATOR PRN TOPICAL 08/24/17 04:45 08/27/17 04:44 [place] [place] ALL NURSING DEPARTME... UNSCH PRN .XX 08/25/17 14:15 08/26/17 14:14 Vital Signs / I&O Vital Signs Date Time Temp Pulse Resp B/P (MAP) Pulse Ox O2 Delivery O2 Flow Rate FiO2 08/26/17 10:29 97 08/26/17 04:17 97.4 65 18 141/93 (109) 97 08/26/17 00:31 96.0 81 17 151/93 (112) 97 08/25/17 20:24 97.2 87 16 133/73 (93) 98 08/25/17 20:12 97 08/25/17 16:00 97.6 18 18 150/85 (106) 97 I/O 08/25/17 08/25/17 08/25/17 08/26/17 08/26/17 08/26/17 07:00 15:00 23:00 07:00 15:00 23:00 Intake Total 500 ml 1063 ml Balance 500 ml 1063 ml Intake Oral 480 ml IV Total 583 ml Other 500 ml # Voids 4 5 4 # Bowel Movements 0 Physical Exam GENERAL: In NAD. SKIN: Warm and dry. HEAD: Normocephalic. EYES: No scleral icterus. No injection or drainage. NECK: Supple, trachea midline. No JVD or lymphadenopathy. CARDIOVASCULAR: Irregular rate, without murmurs, gallops, or rubs. RESPIRATORY: Breath sounds equal bilaterally. No accessory muscle use. GASTROINTESTINAL: Abdomen soft, non-tender, nondistended. MUSCULOSKELETAL: No cyanosis, or edema. Laboratory Laboratory Tests Test 08/26/17 05:55 Total Bilirubin 2.4 MG/DL Direct Bilirubin 1.7 MG/DL Indirect Bilirubin 0.7 MG/DL Aspartate Amino Transf (AST/SGOT) 47 U/L Alanine Aminotransferase (ALT/SGPT) 49 U/L Alkaline Phosphatase 168 U/L Total Protein 6.5 GM/DL Albumin 2.7 GM/DL Assessment and Plan Problem List: (1) Choledocholithiasis ICD Codes: K80.50 - Calculus of bile duct without cholangitis or cholecystitis without obstruction Status: Acute (2) Gallstone pancreatitis ICD Codes: K85.10 - Biliary acute pancreatitis without necrosis or infection (3) CAD (coronary artery disease) ICD Codes: I25.10 - Atherosclerotic heart disease of [place] coronary artery without angina pectoris (4) Chronic atrial fibrillation ICD Codes: I48.2 - Chronic atrial fibrillation (5) HTN (hypertension) ICD Codes: I10 - Essential (primary) hypertension Status: Acute Assessment and Plan No angina or CHF. Proceed with surgery as planned. Restart anticoagulation as soon as possible after the procedure. Monitor on telemetry. To Chapin MD Aug 26, 2017 12:51
[2017-08-26] MEDS ORDERED: BUPIVACAINE/EPINEPHRINE 0.5% PF 30 ML VIAL ONE (13:25)
[2017-08-26] MEDS ORDERED: diphenhydrAMINE HCL 50 MG/ML VIAL ONE (13:56)
[2017-08-26] MEDS ORDERED: methylPREDNISolone SOD SUCC 125 MG/2 ML VIAL ONE (13:57)
[2017-08-26] MEDS ORDERED: CLINDAMYCIN PHOS 600 MG/4 ML VIAL ONE (14:36)
--- NOTE | 2017-08-26 14:38 | HHI.PR ---
Immediate Post Op Note Procedure Date: Aug 26, 2017 Pre Op Diagnosis: choledocholithiasis, back lesion, forehead lesion Post Op Diagnosis: same Surgeon: Rafi Isaac MD Assistant Account Manager(s): see or sheet Procedure: lap chioma, excision of back mass, excisiono f forehead mass Findings: good heme Complications: none Specimen(s) removed: x3 Anesthesia: General Drains: None Patient to: PACU Patient Condition: Good Rafi Isaac MD Aug 26, 2017 14:38
[2017-08-26] MEDS ORDERED: BACITRACIN TOP OINT 15 GM TUBE ONE (15:53)
[2017-08-26] MEDS ORDERED: DO NOT ADM ANY ANTICOAGULANT DRUGS PRN (16:14)
[2017-08-26] MEDS ORDERED: MIDAZOLAM HCL 2 MG/2 ML VIAL ONE (16:26)
[2017-08-26] MEDS ORDERED: HYDROmorphone HCL PF 2 MG/ML VIAL ONE (16:27)
--- NOTE | 2017-08-26 18:03 | MP ---
cc: Rafi Isaac MD, Lars S MD DATE OF OPERATION: 08/26/2017 PREOPERATIVE DIAGNOSIS: Forehead lesion, back lesion, choledocholithiasis. POSTOPERATIVE DIAGNOSIS: Forehead lesion, back lesion, choledocholithiasis. PROCEDURES PERFORMED: 1. Laparoscopic cholecystectomy. 2. Excision of back mass, surgical biopsy. 3. Excision of forehead lesion SURGEON: Rafi Isaca MD LATRINE CLEANER: See OR sheet. ANESTHESIA: GETA. IV FLUIDS: See anesthesia sheet. ESTIMATED BLOOD LOSS: 10 mL DRAINS: None. COMPLICATIONS: None WOUND CLASSIFICATION: Clean/contaminated. SPECIMENS: 1. Gallbladder. 2. Short stitch superior, long stitch to the right. 3. Forehead mass sent for pathology. FINDINGS: Good hemostasis, fatty liver. DRAINS: None. INDICATIONS: The patient is a 77-year-old female who presents with acute onset of pain. She had further workup including findings of gallstones. She underwent ERCP with removal of sludge and stones and a stent placement. She is planned for laparoscopic cholecystectomy following cardiac clearance. She was also noted to have a lesion on her back along with her forehead. Discussed with the patient regarding these lesions and decision for surgical biopsy and local excision. Discussed with the patient regarding back lesion concerning for melanoma and, if this is the case, we will have to identify the depth and consider further management and possible surgical intervention of this. She states understanding and agrees. DETAILS OF THE PROCEDURE: The patient was taken to the operating suite, placed in the lateral decubitus position. She was prepped and draped to the back in the usual sterile fashion after induction of general endotracheal anesthesia. Brief timeout done stating correct patient, procedure, surgical site. The back lesion was identified. An elliptical incision was made with a 15 blade after injection of local anesthetic. Further dissection done with electro Bovie electrocautery. The lesion was excised in its entirety and sent for permanent section pathology. Hemostasis was obtained. A 3-0 Vicryl was used to approximate subcuticular suture, followed by a running 2-0 Prolene. Sterile dressings were placed. The patient then placed in supine position, reprepped, redraped and commencement of the gallbladder was done. A small incision was made supraumbilical after injection of local anesthetic. Visiport Optiview 5 mm trocar was used to enter the abdomen safely. Abdomen insufflated to 15 mm pneumoperitoneum. On inspection, there was noted to be several intra-abdominal adhesions. Some of these were lysed. Once view of the right upper quadrant was done, 3 other ports placed, including a 12 mm epigastric followed by two 5 mm right subcostal ports. The patient was placed in reverse Trendelenburg airplaned to the left. The liver was noted to be somewhat fatty and with a little scarring. The gallbladder fundus was grasped and retracted cephalad. [place] Bovie cautery was used to dissect out the cystic duct and cystic artery in the usual fashion. Two clips were placed proximal and 1 distal on the cystic duct and the cystic artery. Endo Joel were used to transect the cystic duct and cystic artery. The gallbladder was removed from the gallbladder fossa using hook electro Bovie cautery. Suction irrigation was used until the effluent was clear. Gallbladder was placed in an Endo Catch bag and removed from the abdomen. Minimal spillage with suction irrigation with no issue. A small piece of Surgicel was placed in the liver bed. There was no evidence of bile leak or bleeding. The patient was flattened. Ports were removed, pneumoperitoneum was removed. The epigastric port was closed with a [id number] 0 Vicryl, followed by a 4-0 Monocryl subcuticular to all port incision sites. A sterile dressing was placed. The patient tolerated the procedure. Next, attention directed to the forehead where this was reprepped and draped and a towel was then placed. Small horizontal elliptical incision was made around the lesion on the forehead just superior to the right eyebrow. This was done with a 15 blade, followed by an electro Bovie cautery. A 5-0 Prolene suture was used in a running fashion to approximate the tissue. Sterile dressing was placed over this. MD VELVET Agee/ , 05:25 PM , 06:01 PM
[2017-08-26] MEDS: D5-1/2 NS + KCL 10 MEQ INJ 1,000 ML IV SCH (18:24)
[2017-08-26 20:00] VITALS: BP 129/73; PULSE 77; RESP 17; TEMP 98.2; O2SAT 97
[2017-08-26 22:22] VITALS: O2SAT 97
[2017-08-26] MEDS: valACYclovir HCL 500 MG TAB PO SCH (22:45)
[2017-08-26] MEDS: ACETAMINOPHEN/HYDROcodone 325 MG/5 MG TAB PO PRN (23:58)
[2017-08-27] VITALS (8 sets, daily range): BP systolic 119–153; BP diastolic 72–92; PULSE 84–105; RESP 17–18; TEMP 97.1–97.9; O2SAT 93–98
[2017-08-27] MEDS: D5-1/2 NS + KCL 10 MEQ INJ 1,000 ML IV SCH ×2 (05:48→20:06)
--- NOTE | 2017-08-27 07:28 | HHI.PR ---
Subjective Subjective Notes no acute issues, tolerating liquids, incisional pain Objective Vitals/I&O Vital Signs Date Time Temp Pulse Resp B/P (MAP) Pulse Ox O2 Delivery O2 Flow Rate FiO2 08/27/17 04:00 97.1 84 17 119/76 (90) 98 08/26/17 22:22 Nasal Cannula 2.00 Labs Laboratory Tests Test 08/27/17 06:15 Cardiovascular: Regular Lungs: Clear Abdomen: Other (incisions c/d/i) A/P Assessment and Plan POD 1 Lap chioma doing well, excision of back mass, excision of forehead lesion PLAN reg diet oob pain control await onc consult Dr. Oakes d/c planning Rafi Isaac MD Aug 27, 2017 07:28
[2017-08-27 07:33] LABS: AUTOMATED NEUTROPHIL # 5.3 TH/MM3 (1.8-7.7); BASOPHIL % 0.1 % (0.0-2.0); HEMATOCRIT 34.6 % (35.0-46.0); HEMOGLOBIN 11.1 GM/DL (11.6-15.3); LYMPH % 4.8 % (9.0-44.0); LYMPHOCYTE # 0.3 TH/MM3 (1.0-4.8); MEAN CELL VOLUME 79.5 FL (80.0-100.0); MEAN CORPUSCULAR HEMOGLOBIN 25.4 PG (27.0-34.0); MEAN PLATELET VOLUME 8.5 FL (7.0-11.0); MONO % 4.5 % (0.0-8.0); MONOCYTE # 0.3 TH/MM3 (0-0.9); NEUT % 90.6 % (16.0-70.0); PLATELET COUNT 135 TH/MM3 (150-450); RED BLOOD COUNT 4.35 MIL/MM3 (4.00-5.30); RED CELL DISTRIBUTION WIDTH 19.7 % (11.6-17.2); WHITE BLOOD COUNT 5.8 TH/MM3 (4.0-11.0)
[2017-08-27] MEDS: SODIUM CHLORIDE 0.9% FLUSH 10 ML FLUSH IV FLUSH SCH ×2 (08:20→20:42)
[2017-08-27] MEDS: FOLIC ACID 1 MG TAB PO SCH (08:22)
[2017-08-27] MEDS: MULTIVITAMINS/MINERALS THERAPEUTIC TAB PO SCH (08:23)
[2017-08-27] MEDS: THIAMINE HCL 100 MG TAB PO SCH (08:23)
[2017-08-27] MEDS: DILTIAZEM-CD 120 MG CAP ER PO SCH (08:25)
[2017-08-27] MEDS: PANTOPRAZOLE SOD 20 MG DELAYED RELEASE TAB PO SCH (08:25)
[2017-08-27] MEDS: FUROSEMIDE 20 MG TAB PO SCH (08:25)
[2017-08-27] MEDS: valACYclovir HCL 500 MG TAB PO SCH (08:25)
[2017-08-27] MEDS: POTASSIUM CHLORIDE 20 MEQ CONTROLLED RELEASE TAB PO SCH (08:25)
--- NOTE | 2017-08-27 09:41 | HHI.PR ---
Subjective Remarks in no acute distress. has minimal pain to RUQ. otherwise no other complaints. Objective Vitals Vital Signs Date Time Temp Pulse Resp B/P (MAP) Pulse Ox O2 Delivery O2 Flow Rate FiO2 08/27/17 04:00 97.1 84 17 119/76 (90) 98 08/27/17 00:00 97.6 84 17 122/72 (89) 96 08/26/17 22:22 97 Nasal Cannula 2.00 08/26/17 20:00 98.2 77 17 129/73 (91) 97 08/26/17 17:00 78 16 141/71 (94) 97 Nasal Cannula 2 08/26/17 16:45 84 16 156/79 (104) 97 Nasal Cannula 2 08/26/17 16:30 90 16 157/75 (102) 97 Nasal Cannula 2 08/26/17 16:14 97.4 98 16 154/98 (116) 100 Nasal Cannula 2 08/26/17 10:29 97 I/O 08/26/17 08/26/17 08/26/17 08/27/17 08/27/17 08/27/17 07:00 15:00 23:00 07:00 15:00 23:00 Intake Total 1450 ml 1080 ml Output Total 10 ml 1200 ml Balance 1440 ml -120 ml Intake Oral 400 ml 240 ml IV Total 50 ml 840 ml Other 1000 ml Output Urine Total 1200 ml Estimated Blood Loss 10 ml # Voids 4 3 # Bowel Movements 0 Result Diagram: 08/27/17 0615 08/25/17 0645 Imaging Last Impressions GI Procedure 08/25/17 0000 Signed Impressions: CONCLUSION: Placement of internal biliary stent.. Abdomen/Pelvis CT 08/22/17 0336 Signed Impressions: CONCLUSION: 1. There is nondistention of the colon without significant inflammatory change s. 2. Scattered diverticulosis without diverticulitis. 3. Minimal stranding posterior to the pancreas of uncertain etiology but could represent pancreatitis in the right clinical setting. 4. Cholelithiasis. 5. Hepatic low densities, likely benign. 6. Scattered retroperitoneal lymphadenopathy largest measuring 13 mm. Gall Bladder Ultrasound 08/22/17 0000 Signed Impressions: CONCLUSION: 1. Cholelithiasis with intrahepatic and extrahepatic bile duct dilatation. No stone is visualized in the common duct on this examination but on recent CT in retrospect there are small high density structures in the distal common duct reyes spicious for distal common bile duct stones. 2. Pancreas has a normal appearance on this examination but demonstrated mild inflammatory change adjacent to the pancreas on recent CT. 3. There are benign-appearing hepatic and right renal cysts. Objective Remarks GENERAL: This is a well-nourished, well-developed patient, in no apparent distress. CARDIOVASCULAR: Regular rate and regular rhythm without murmurs, gallops, or rubs. RESPIRATORY: Clear to auscultation. Breath sounds equal bilaterally. No wheezes , rales, or rhonchi. GASTROINTESTINAL: Abdomen soft, non-tender, nondistended. Normal, active bowel sounds MUSCULOSKELETAL: Extremities without clubbing, cyanosis, or edema. NEURO: Alert & Oriented x4 to person, place, time, situation. Moves all ext x4 Procedures ERCP/ lap chioma, excision of back mass, excision forehead mass Medications and IVs Inpatient Medications Acetaminophen (Tylenol) 650 mg Q4H PRN PO TEMP > 100.4 Last administered on at 18:35; Start 08/22/17 at 08:00 Acetaminophen/ Hydrocodone Bitart ([place] 5-325 Mg) 1 tab Q4H PRN PO pain >5 Last administered on 08/26/17at 23:58; Start 08/26/17 at 23:45 Aztreonam 1000 mg/ Sodium Chloride 100 ml @ 200 mls/hr Q12H IV Last administered on 08/22/17at 23:48; Start 08/22/17 at 12:00; Stop 08/23/17 at 10:30 ; Status DC Chlorhexidine Gluconate (Chlorhexidine 2% Cloth) 3 pack OFFICE MACHINE REPAIR SHOP SUPERVISOR PRN TOPICAL SEE LABEL COMMENTS; Start 08/24/17 at 04:45; Stop 08/26/17 at 13:43; Status DC Diltiazem HCl (Cardizem Cd) 120 mg ONCE ONCE PO Last administered on at 13:31; Start 08/22/17 at 13:00; Stop 08/22/17 at 13:10; Status DC Diphenhydramine HCl (Benadryl) 25 mg Q4H PRN PO itchiong Last administered on at 18:35; Start 08/23/17 at 10:30 Flumazenil (Romazicon Inj) 0.2 mg Q1M PRN IV PUSH SEE LABEL COMMENTS; Start at 13:30 Folic Acid (Folate) 1 mg DAILY PO ; Start 08/23/17 at 09:00; Stop 08/28/17 at 08 :59 Furosemide (Lasix) 20 mg DAILY PO Last administered on 08/27/17at 08:25; Start 08/23/17 at 09:00 Haloperidol Lactate (Haldol Inj) 2 mg Q15M PRN IM SEE LABEL COMMENTS; Start at 13:30 Ketorolac Tromethamine (Toradol Inj) 15 mg ONCE ONCE IV PUSH Last administered on 08/22/17at 09:26; Start 08/22/17 at 09:30; Stop 08/22/17 at 09:31 ; Status DC Lactated Ringer's 1,000 ml @ 30 mls/hr Q24H PRN IV SEE LABEL COMMENTS Last administered on 08/26/17at 11:30; Start 08/24/17 at 04:45; Stop 08/26/17 at 13:42 ; Status DC Levofloxacin/ Dextrose 100 ml @ 100 mls/hr Q24H IV ; Start 08/22/17 at 08:00; Stop 08/22/17 at 15:22; Status DC Lorazepam (Ativan Inj) 2 mg Q15M PRN IV PUSH CIWA > 20; Start 08/22/17 at 13:30 Lorazepam (Ativan) 2 mg Q2H PRN PO CIWA 11-14; Start 08/22/17 at 13:30 Magnesium Oxide (Mag-Ox) 400 mg DAILY@1100 PO Last administered on 08/25/17at 13 :02; Start 08/22/17 at 11:14 Metoclopramide HCl (Reglan Inj) 5 mg Q6H PRN IV PUSH NAUSEA OR VOMITING; Start 08/22/17 at 08:00 Miscellaneous Information ([facility] [place] [facility]) ALL NURSING DEPARTME... UNSCH PRN .XX SEE LABEL COMMENTS; Start 08/26/17 at 16:14; Stop 08/27/17 at 16: 13 Morphine Sulfate (Morphine Inj) 2 mg Q4H PRN IV PUSH PAIN 6-10; Start 08/22/17 at 21:45; Stop 08/26/17 at 23:41; Status DC Multivitamins/ Minerals Therapeutic (Theragran M Tab) 1 tab DAILY PO ; Start at 09:00; Stop 08/28/17 at 08:59 Naloxone HCl (Narcan Inj) 0.4 mg UNSCH PRN IV PUSH SEE LABEL COMMENTS; Start at 08:00 Ondansetron HCl (Zofran Inj) 4 mg ONCE ONCE IVP Last administered on at 04:42; Start 08/22/17 at 03:45; Stop 08/22/17 at 03:46; Status DC Pantoprazole Sodium (Protonix) 20 mg DAILY PO Last administered on 08/27/17at 08 :25; Start 08/23/17 at 09:00 Potassium Chloride/Dextrose/ Sod Cl 1,000 ml @ 70 mls/hr [id number] IV Last administered on 08/26/17at 18:24; Start 08/23/17 at 16:00 Potassium Chloride (KCl) 20 meq DAILY PO Last administered on 08/27/17at 08:25; Start 08/23/17 at 09:00 Povidone Iodine (Betadine 5% Antisepsis Kit) 1 applic OFFICE MACHINE REPAIR SHOP SUPERVISOR PRN EACH NARE SEE LABEL COMMENTS; Start 08/24/17 at 04:45; Stop 08/26/17 at 13:43; Status DC Prochlorperazine Edisylate (Compazine Inj) 10 mg ONCE ONCE IV PUSH Last administered on 08/22/17at 05:35; Start 08/22/17 at 05:30; Stop 08/22/17 at 05:31 ; Status DC Sodium Chloride 500 ml @ 30 mls/hr [id number] PRN IV SEE LABEL COMMENTS; Start at 04:45; Stop 08/26/17 at 13:42; Status DC Sodium Chloride (NS Flush) 2 ml BID IV FLUSH Last administered on 08/23/17at 22: 04; Start 08/22/17 at 09:00 Thiamine HCl (Vitamin B1) 100 mg DAILY PO ; Start 08/23/17 at 09:00 Valacyclovir HCl (Valtrex) 500 mg Q12HR PO Last administered on 08/27/17at 08:25 ; Start 08/26/17 at 21:00; Stop 08/27/17 at 09:01; Status DC A/P Problem List: (1) Choledocholithiasis ICD Code: K80.50 - Calculus of bile duct without cholangitis or cholecystitis without obstruction Status: Acute Assessment and Plan A/P Right upper quadrant pain with abnormal liver function tests, cholelithiasis with intra-hepatic and extrahepatic bile duct dilatation possible choledocholithiasis and gallstone pancreatitis. s/p ERCP with CBD dilation and stent placement. s/p lap chioma, excision of back mass, excisiono f forehead mass management per GS. Retroperitoneal lymphadenopathy. consulted. Hypokalemia. Replaced Rash likely drug from aztreonam. Hx of multiple drug allergies. No respiratory compromise. Discontinued aztreonam. Benadryl as needed Multiple medical conditions of A. fib on Eliquis ( on hold for planned procedure ) and Cardizem , leukopenia and thrombocytopenia followed by Dr. Oakes, GERD, hypertension, bilateral lower extremity edema on Lasix, osteoarthritis and migraines. Continue outpatient medications as appropriate DVT prophylaxis with SCD. Eliquis on hold pending GI evaluation Discharge Planning dc home when cleared by general surgery and oncology. Sabino Vicente MD Aug 27, 2017 09:41
[2017-08-27] MEDS ORDERED: HYDR-3516 PO (09:42)
--- NOTE | 2017-08-27 11:20 | PD.CARD.PN ---
Subjective Subjective Remarks No CP or SOB, tolerated surgery well Objective Medications Current Medications Medications (Trade) Dose Ordered Sig/Linda Route Start Time Stop Time Status Last Admin (NS Flush) 2 ml UNSCH PRN IV FLUSH 08/22/17 08:00 (NS Flush) 2 ml BID IV FLUSH 08/22/17 09:00 08/23/17 22:04 (Tylenol) 650 mg Q4H PRN PO 08/22/17 08:00 08/25/17 18:35 (Reglan Inj) 5 mg Q6H PRN IV PUSH 08/22/17 08:00 (Narcan Inj) 0.4 mg UNSCH PRN IV PUSH 08/22/17 08:00 (Cardizem Cd) 120 mg DAILY PO 08/23/17 09:00 08/27/17 08:25 (Lasix) 20 mg DAILY PO 08/23/17 09:00 08/27/17 08:25 (Protonix) 20 mg DAILY PO 08/23/17 09:00 08/27/17 08:25 (KCl) 20 meq DAILY PO 08/23/17 09:00 08/27/17 08:25 (Mag-Ox) 400 mg DAILY@1100 PO 08/22/17 11:14 08/25/17 13:02 (Folate) 1 mg DAILY PO 08/23/17 09:00 08/28/17 08:59 (Vitamin B1) 100 mg DAILY PO 08/23/17 09:00 (Theragran M Tab) 1 tab DAILY PO 08/23/17 09:00 08/28/17 08:59 (Romazicon Inj) 0.2 mg Q1M PRN IV PUSH 08/22/17 13:30 (Ativan) 1 mg Q4H PRN PO 08/22/17 13:30 (Ativan Inj) 1 mg Q4H PRN IV PUSH 08/22/17 13:30 (Ativan) 2 mg Q2H PRN PO 08/22/17 13:30 (Ativan Inj) 2 mg Q2H PRN IV PUSH 08/22/17 13:30 (Ativan Inj) 2 mg Q1H PRN IV PUSH 08/22/17 13:30 (Ativan Inj) 2 mg Q15M PRN IV PUSH 08/22/17 13:30 (Haldol Inj) 2 mg Q15M PRN IM 08/22/17 13:30 (Benadryl) 25 mg Q4H PRN PO 08/23/17 10:30 08/25/17 18:35 Potassium Chloride/Dextrose/ Sod Cl 1,000 ml @ 70 mls/hr [id number] IV 08/23/17 16:00 08/26/17 18:24 ([facility] [place] [facility] ALL NURSING DEPARTME... UNSCH PRN .XX 08/26/17 16:14 08/27/17 16:13 ([place] 5-325 Mg) 1 tab Q4H PRN PO 08/26/17 23:45 08/26/17 23:58 Vital Signs / I&O Vital Signs Date Time Temp Pulse Resp B/P (MAP) Pulse Ox O2 Delivery O2 Flow Rate FiO2 08/27/17 04:00 97.1 84 17 119/76 (90) 98 08/27/17 00:00 97.6 84 17 122/72 (89) 96 08/26/17 22:22 97 Nasal Cannula 2.00 08/26/17 20:00 98.2 77 17 129/73 (91) 97 08/26/17 17:00 78 16 141/71 (94) 97 Nasal Cannula 2 08/26/17 16:45 84 16 156/79 (104) 97 Nasal Cannula 2 08/26/17 16:30 90 16 157/75 (102) 97 Nasal Cannula 2 08/26/17 16:14 97.4 98 16 154/98 (116) 100 Nasal Cannula 2 I/O 08/26/17 08/26/17 08/26/17 08/27/17 08/27/17 08/27/17 07:00 15:00 23:00 07:00 15:00 23:00 Intake Total 1450 ml 1080 ml Output Total 10 ml 1200 ml Balance 1440 ml -120 ml Intake Oral 400 ml 240 ml IV Total 50 ml 840 ml Other 1000 ml Output Urine Total 1200 ml Estimated Blood Loss 10 ml # Voids 4 3 # Bowel Movements 0 Physical Exam GENERAL: In NAD. SKIN: Warm and dry. HEAD: Normocephalic. EYES: No scleral icterus. No injection or drainage. NECK: Supple, trachea midline. No JVD or lymphadenopathy. CARDIOVASCULAR: Irregular rate, without murmurs, gallops, or rubs. RESPIRATORY: Breath sounds equal bilaterally. No accessory muscle use. GASTROINTESTINAL: Abdomen soft, non-tender, nondistended. MUSCULOSKELETAL: No cyanosis, or edema. Laboratory Laboratory Tests Test 08/27/17 06:15 White Blood Count 5.8 TH/MM3 Red Blood Count 4.35 MIL/MM3 Hemoglobin 11.1 GM/DL Hematocrit 34.6 % Mean Corpuscular Volume 79.5 FL Mean Corpuscular Hemoglobin 25.4 PG Mean Corpuscular Hemoglobin Concent 32.0 % Red Cell Distribution Width 19.7 % Platelet Count 135 TH/MM3 Mean Platelet Volume 8.5 FL Neutrophils (%) (Auto) 90.6 % Lymphocytes (%) (Auto) 4.8 % Monocytes (%) (Auto) 4.5 % Eosinophils (%) (Auto) 0.0 % Basophils (%) (Auto) 0.1 % Neutrophils # (Auto) 5.3 TH/MM3 Lymphocytes # (Auto) 0.3 TH/MM3 Monocytes # (Auto) 0.3 TH/MM3 Eosinophils # (Auto) 0.0 TH/MM3 Basophils # (Auto) 0.0 TH/MM3 CBC Comment DIFF FINAL Differential Comment Assessment and Plan Problem List: (1) Choledocholithiasis ICD Codes: K80.50 - Calculus of bile duct without cholangitis or cholecystitis without obstruction Status: Acute (2) Gallstone pancreatitis ICD Codes: K85.10 - Biliary acute pancreatitis without necrosis or infection (3) CAD (coronary artery disease) ICD Codes: I25.10 - Atherosclerotic heart disease of [place] coronary artery without angina pectoris (4) Chronic atrial fibrillation ICD Codes: I48.2 - Chronic atrial fibrillation (5) HTN (hypertension) ICD Codes: I10 - Essential (primary) hypertension Status: Acute (6) Melanoma ICD Codes: C43.9 - Malignant melanoma of skin, unspecified Assessment and Plan No perioperative cardiac complications. No angina or CHF. Restart anticoagulation as soon as possible. Monitor on telemetry. F/u w Dr. Mancini after discharge. To Chapin MD Aug 27, 2017 11:20
[2017-08-27] MEDS: MAGNESIUM OXIDE 400 MG TAB PO SCH (11:24)
--- NOTE | 2017-08-27 15:10 | HHI.GIFU ---
Subjective Remarks Pt resting in bed S/P Lap chioma yesterday Denies nausea and vomiting Mild soreness to surgical site Tolerating regular diet for breakfast and lunch (Opal Rodríguez) Objective Vitals I&O Vital Signs Date Time Temp Pulse Resp B/P (MAP) Pulse Ox O2 Delivery O2 Flow Rate FiO2 08/27/17 12:00 97.7 91 18 140/75 (96) 95 08/27/17 08:30 94 21 08/27/17 08:00 97.9 88 17 147/80 (102) 96 08/27/17 04:00 97.1 84 17 119/76 (90) 98 08/27/17 00:00 97.6 84 17 122/72 (89) 96 08/26/17 22:22 97 Nasal Cannula 2.00 08/26/17 20:00 98.2 77 17 129/73 (91) 97 08/26/17 17:00 78 16 141/71 (94) 97 Nasal Cannula 2 08/26/17 16:45 84 16 156/79 (104) 97 Nasal Cannula 2 08/26/17 16:30 90 16 157/75 (102) 97 Nasal Cannula 2 08/26/17 16:14 97.4 98 16 154/98 (116) 100 Nasal Cannula 2 I/O 08/26/17 08/26/17 08/26/17 08/27/17 08/27/17 08/27/17 07:00 15:00 23:00 07:00 15:00 23:00 Intake Total 1450 ml 1080 ml Output Total 10 ml 1200 ml Balance 1440 ml -120 ml Intake Oral 400 ml 240 ml IV Total 50 ml 840 ml Other 1000 ml Output Urine Total 1200 ml Estimated Blood Loss 10 ml # Voids 4 3 # Bowel Movements 0 Laboratory Laboratory Tests Test 08/27/17 06:15 White Blood Count 5.8 Red Blood Count 4.35 Hemoglobin 11.1 Hematocrit 34.6 Mean Corpuscular Volume 79.5 Mean Corpuscular Hemoglobin 25.4 Mean Corpuscular Hemoglobin Concent 32.0 Red Cell Distribution Width 19.7 Platelet Count 135 Mean Platelet Volume 8.5 Neutrophils (%) (Auto) 90.6 Lymphocytes (%) (Auto) 4.8 Monocytes (%) (Auto) 4.5 Eosinophils (%) (Auto) 0.0 Basophils (%) (Auto) 0.1 Neutrophils # (Auto) 5.3 Lymphocytes # (Auto) 0.3 Monocytes # (Auto) 0.3 Eosinophils # (Auto) 0.0 Basophils # (Auto) 0.0 CBC Comment DIFF FINAL Differential Comment Imaging Last Impressions GI Procedure 08/25/17 0000 Signed Impressions: CONCLUSION: Placement of internal biliary stent.. Abdomen/Pelvis CT 08/22/17 0336 Signed Impressions: CONCLUSION: 1. There is nondistention of the colon without significant inflammatory change s. 2. Scattered diverticulosis without diverticulitis. 3. Minimal stranding posterior to the pancreas of uncertain etiology but could represent pancreatitis in the right clinical setting. 4. Cholelithiasis. 5. Hepatic low densities, likely benign. 6. Scattered retroperitoneal lymphadenopathy largest measuring 13 mm. Gall Bladder Ultrasound 08/22/17 0000 Signed Impressions: CONCLUSION: 1. Cholelithiasis with intrahepatic and extrahepatic bile duct dilatation. No stone is visualized in the common duct on this examination but on recent CT in retrospect there are small high density structures in the distal common duct reyes spicious for distal common bile duct stones. 2. Pancreas has a normal appearance on this examination but demonstrated mild inflammatory change adjacent to the pancreas on recent CT. 3. There are benign-appearing hepatic and right renal cysts. Physical Exam HEENT: Normocephalic; atraumatic CHEST: Even/unlabored CARDIAC: RRR ABDOMEN: Soft, nondistended, bowel sounds active EXTREMITIES: No clubbing, cyanosis, or edema. SKIN: Normal; no rash; no jaundice. TIRE CARE MANAGER: Alert and oriented times three. (Opal Rodríguez LEGAL SUMMER INTERN) Assessment and Plan Plan Assessment: - Elevated LFTs US gallbladder --> Cholelithiasis with intrahepatic and extrahepatic bile duct dilatation. No stone is visualized in the common duct on this examination but on recent CT in retrospect there are small high density structures in the distal common duct suspicious for distal common bile duct stones. S/P ERCP --> Pancreatic duct normal. Dilated CBD to 8mm with ? filling defects x 2. Sphincterotomy with balloon sweep 11.5 mm balloon. Some debris ? stone removed. Duct not draining well. 8.5 Fr x 9cm biliary stent placed in CBD. Ampulla appeared normal. S/P lap cholecystectomy yesterday (08/27) LFTs trending down, pt tolerating PO, minimal soreness to surgical site. Plan: Monitor LFTs GI will sign off, have pt follow up in GI clinic in one week Will need repeat ERCP in 3 months Pt has been seen and examined by myself and Dr. Aceves and this note is written on her behalf (Opal Rodríguez) Physician Comments seen, examined agree with above will need ercp with stent removal in 8-12 weeks (Noelle Aceves MD) Opal Rodríguez Aug 27, 2017 15:10 Noelle Aceves MD Aug 27, 2017 17:30
[2017-08-27] MEDS: ACETAMINOPHEN/HYDROcodone 325 MG/5 MG TAB PO PRN ×2 (15:58→22:39)
[2017-08-28] VITALS (8 sets, daily range): BP systolic 122–172; BP diastolic 70–94; PULSE 84–101; RESP 18–22; TEMP 97.6–98.4; O2SAT 96–98
--- NOTE | 2017-08-28 03:13 | MB ---
cc: Seun Oakes MD DATE: 08/27/2017 REASON FOR CONSULTATION: The patient with a history of thrombocytopenia, who was admitted with abdominal pain status post laparoscopic cholecystectomy. HISTORY OF PRESENT ILLNESS: This is a 77-year-old female who has a past medical history of atrial fibrillation, leukopenia, thrombocytopenia, GERD, hypertension, osteoarthritis and history of migraines who presented to the emergency department with acute onset of abdominal pain. This was in the right flank area and was radiating to the right shoulder. She also had nausea and vomiting. The patient was also experiencing diarrhea. In the emergency department, the patient underwent CT imaging of the abdomen which showed minimal stranding posterior to the pancreas. There was cholelithiasis with intrahepatic and extrahepatic bile duct dilatation. The patient was subsequently seen by gastroenterology and underwent ERCP with sphincterectomy, stone removal and stent placement. On admission, she had an elevation of T-bilirubin ____, which subsequently declined. She was seen by surgery and underwent laparoscopic cholecystectomy. Her liver functions are improving. Total bilirubin is also declining. On the CT imaging, the patient was found to have nonspecific retroperitoneal adenopathy. The adenopathy is subcentimeter, with the largest lesion measuring 13 mm. Biopsies from the gallbladder are pending. The patient had 2 skin lesions that were also removed, from her neck area as well as from her back. The patient was seen in the oncology clinic previously for evaluation of thrombocytopenia. 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 Her baseline platelet count is in the low 100s. She was also found to have mild splenomegaly. She also has a history of iron deficiency anemia and is maintained on oral iron supplementation. On admission, her white blood cell count was 4.5, hemoglobin was 12.1, and platelet count was 103,000. Most recent labs from 08/27/2017 show a platelet count of 135,000. The patient is currently recovering from surgery. She is ambulatory. Her diet has been advanced. She denies any abdominal pain. She has not had any nosebleeds, gum bleeds, petechiae or bruising. REVIEW OF SYSTEMS: A comprehensive review of system was completed which is negative except as described in the HPI. PAST MEDICAL HISTORY: History of chronic ITP, anemia, AFib, GERD, hypertension, osteoarthritis, history of migraines, multiple allergies. PAST SURGICAL HISTORY: Appendectomy, right ankle and right eye surgery, hysterectomy, tonsillectomy and adenoidectomy, bilateral carpal tunnel surgery. FAMILY HISTORY: Reviewed and was noncontributory. SOCIAL HISTORY: She does not smoke cigarettes. She rarely drinks alcohol. No illicit drug use. MEDICATIONS: 1. [place] 5/325 one tablet p.o. q. 4 hour p.r.n. 2. Benadryl 25 mg p.o. q. 2 hours p.r.n. 3. Cardizem 120 mg p.o. daily. 4. Lasix 20 mg p.o. daily. 5. Pantoprazole 20 mg p.o. daily. 6. Folic acid 1 mg p.o. daily. 7. Thiamine 100 mg p.o. daily. 8. Flumazenil p.r.n. 9. Tylenol p.r.n. 10. Reglan 5 mg IV q. 6 hours p.r.n. ALLERGIES: SHE HAS MULTIPLE ALLERGIES. These were reviewed and they are documented in the EMR. PHYSICAL EXAMINATION: VITAL SIGNS: Blood pressure is 140/75, pulse is in the 90s. Temperature is 97.7. GENERAL: Well-developed, well-nourished, elderly female in no apparent distress. HEENT: Pupils are equal, round, reactive to light. EOMI. No thrush. No lesions. NECK: Supple. No JVD. No bruits. No lymphadenopathy. CHEST: Clear to auscultation bilaterally. CARDIAC: S1, S2. Regular rate and rhythm. ABDOMEN: Soft, nondistended. Bowel sounds are present. EXTREMITIES: Without any edema, erythema or cyanosis. SKIN: Without any petechiae, lesions, or bruises. NEUROLOGIC: No focal deficits. PSYCHIATRIC: Mood and affect appropriate. LABORATORY DATA: WBC 5.8, hemoglobin 11.1, platelet count 135. Serum chemistry: Sodium 138, potassium 3.4, CO2 of 21.7, BUN is 5, creatinine is 0.56, glucose is 102, total bilirubin is 2.4, indirect is 0.7, AST is 47, ALT is 49. LDH is 200. Iron studies show iron of 37, percent saturation is 8.7, TIBC is 427, ferritin is 26. Imaging was reviewed in the EMR. ASSESSMENT AND PLAN: This is a 77-year-old female with a history of chronic idiopathic thrombocytopenic purpura, anemia, gastroesophageal reflux disease, atrial fibrillation chronically on Eliquis, hypertension, osteoarthritis, and migraines, who presented to the emergency department with acute onset abdominal pain. The patient has undergone ERCP with sphincterectomy, stone removal and stent placement. She is also now status post cholecystectomy. The patient had a slight drop in her platelet count from her baseline. Hematology has been consulted for further recommendations. 1. Acute on chronic thrombocytopenia: She has a history of mild idiopathic thrombocytopenic purpura. Baseline platelet count is in the 100s. Acute drop in platelet count is likely due to hospitalization and acute illness. It appears that platelet count has rebounded to 135,000 today. No additional workup is needed. Continue to monitor. 2. Status post cholecystectomy: Biopsies are pending. Will follow up. 3. Retroperitoneal adenopathy: This is nonspecific. In the absence of any symptoms, I would not recommend any further workup at this time, just to be monitored in the outpatient setting. 4. Transaminitis secondary to biliary obstruction. 5. Elevated total bilirubin, improving after ERCP and stent placement, and now she is status post cholecystectomy. 7. Microcytic anemia: Anemia studies show iron deficiency. We will give her iron infusions. Thank you for allowing me to participate in the care of this patient. I will continue to follow this patient along. MD MIRTHA Vanegas/ELFEGO , 02:26 AM , 03:11 AM
[2017-08-28] MEDS: FUROSEMIDE 20 MG TAB PO SCH (09:00)
[2017-08-28] MEDS: THIAMINE HCL 100 MG TAB PO SCH (09:00)
[2017-08-28] MEDS: SODIUM CHLORIDE 0.9% FLUSH 10 ML FLUSH IV FLUSH SCH ×2 (09:00→21:00)
[2017-08-28] MEDS: POTASSIUM CHLORIDE 20 MEQ CONTROLLED RELEASE TAB PO SCH (09:00)
[2017-08-28] MEDS: DILTIAZEM-CD 120 MG CAP ER PO SCH (09:00)
[2017-08-28] MEDS: PANTOPRAZOLE SOD 20 MG DELAYED RELEASE TAB PO SCH (09:00)
[2017-08-28] MEDS: IRON SUCROSE INJ 200 MG in SODIUM CHLORIDE 0.9% INJ 100 ML IV SCH (09:00)
--- NOTE | 2017-08-28 10:02 | HHI.PR ---
Subjective Remarks in no acute distress. has some abdominal pain- but no nausea/emesis. no fever. hoping that she could go home soon. Objective Vitals Vital Signs Date Time Temp Pulse Resp B/P (MAP) Pulse Ox O2 Delivery O2 Flow Rate FiO2 08/28/17 04:00 97.6 87 18 122/81 (95) 96 08/28/17 00:00 97.6 91 18 126/85 (99) 96 08/27/17 23:00 87 08/27/17 20:00 97.7 95 18 153/92 (112) 93 08/27/17 16:00 97.7 105 18 138/77 (97) 95 08/27/17 12:00 97.7 91 18 140/75 (96) 95 I/O 08/27/17 08/27/17 08/27/17 08/28/17 08/28/17 08/28/17 07:00 15:00 23:00 07:00 15:00 23:00 Intake Total 1080 ml 620 ml 480 ml Output Total 1200 ml Balance -120 ml 620 ml 480 ml Intake Oral 240 ml 620 ml 480 ml IV Total 840 ml Output Urine Total 1200 ml # Voids 7 3 # Bowel Movements 0 Result Diagram: 08/27/17 0615 08/25/17 0645 Imaging Last Impressions GI Procedure 08/25/17 0000 Signed Impressions: CONCLUSION: Placement of internal biliary stent.. Abdomen/Pelvis CT 08/22/17 0336 Signed Impressions: CONCLUSION: 1. There is nondistention of the colon without significant inflammatory change s. 2. Scattered diverticulosis without diverticulitis. 3. Minimal stranding posterior to the pancreas of uncertain etiology but could represent pancreatitis in the right clinical setting. 4. Cholelithiasis. 5. Hepatic low densities, likely benign. 6. Scattered retroperitoneal lymphadenopathy largest measuring 13 mm. Gall Bladder Ultrasound 08/22/17 0000 Signed Impressions: CONCLUSION: 1. Cholelithiasis with intrahepatic and extrahepatic bile duct dilatation. No stone is visualized in the common duct on this examination but on recent CT in retrospect there are small high density structures in the distal common duct reyes spicious for distal common bile duct stones. 2. Pancreas has a normal appearance on this examination but demonstrated mild inflammatory change adjacent to the pancreas on recent CT. 3. There are benign-appearing hepatic and right renal cysts. Objective Remarks GENERAL: This is a well-nourished, well-developed patient, in no apparent distress. CARDIOVASCULAR: Regular rate and regular rhythm without murmurs, gallops, or rubs. RESPIRATORY: Clear to auscultation. Breath sounds equal bilaterally. No wheezes , rales, or rhonchi. GASTROINTESTINAL: Abdomen soft, non-tender, nondistended. Normal, active bowel sounds MUSCULOSKELETAL: Extremities without clubbing, cyanosis, or edema. NEURO: Alert & Oriented x4 to person, place, time, situation. Moves all ext x4 Procedures ERCP/ lap chioma, excision of back mass, excision forehead mass Medications and IVs Inpatient Medications Acetaminophen (Tylenol) 650 mg Q4H PRN PO TEMP > 100.4 Last administered on at 18:35; Start 08/22/17 at 08:00 Acetaminophen/ Hydrocodone Bitart ([place] 5-325 Mg) 1 tab Q4H PRN PO pain >5 Last administered on 08/27/17at 22:39; Start 08/26/17 at 23:45 Aztreonam 1000 mg/ Sodium Chloride 100 ml @ 200 mls/hr Q12H IV Last administered on 08/22/17at 23:48; Start 08/22/17 at 12:00; Stop 08/23/17 at 10:30 ; Status DC Chlorhexidine Gluconate (Chlorhexidine 2% Cloth) 3 pack DEPUTY TREASURER PRN TOPICAL SEE LABEL COMMENTS; Start 08/24/17 at 04:45; Stop 08/26/17 at 13:43; Status DC Diltiazem HCl (Cardizem Cd) 120 mg ONCE ONCE PO Last administered on at 13:31; Start 08/22/17 at 13:00; Stop 08/22/17 at 13:10; Status DC Diphenhydramine HCl (Benadryl) 25 mg Q4H PRN PO itchiong Last administered on at 18:35; Start 08/23/17 at 10:30 Flumazenil (Romazicon Inj) 0.2 mg Q1M PRN IV PUSH SEE LABEL COMMENTS; Start at 13:30 Folic Acid (Folate) 1 mg DAILY PO ; Start 08/23/17 at 09:00; Stop 08/28/17 at 08 :59; Status DC Furosemide (Lasix) 20 mg DAILY PO Last administered on 08/28/17at 09:00; Start 08/23/17 at 09:00 Haloperidol Lactate (Haldol Inj) 2 mg Q15M PRN IM SEE LABEL COMMENTS; Start at 13:30 Iron Sucrose 200 mg/Sodium Chloride 110 ml @ 110 mls/hr DAILY IV ; Start at 09:00; Stop 08/30/17 at 09:59 Ketorolac Tromethamine (Toradol Inj) 15 mg ONCE ONCE IV PUSH Last administered on 08/22/17at 09:26; Start 08/22/17 at 09:30; Stop 08/22/17 at 09:31 ; Status DC Lactated Ringer's 1,000 ml @ 30 mls/hr Q24H PRN IV SEE LABEL COMMENTS Last administered on 08/26/17at 11:30; Start 08/24/17 at 04:45; Stop 08/26/17 at 13:42 ; Status DC Levofloxacin/ Dextrose 100 ml @ 100 mls/hr Q24H IV ; Start 08/22/17 at 08:00; Stop 08/22/17 at 15:22; Status DC Lorazepam (Ativan Inj) 2 mg Q15M PRN IV PUSH CIWA > 20; Start 08/22/17 at 13:30 Lorazepam (Ativan) 2 mg Q2H PRN PO CIWA 11-14; Start 08/22/17 at 13:30 Magnesium Oxide (Mag-Ox) 400 mg DAILY@1100 PO Last administered on 08/27/17at 11 :24; Start 08/22/17 at 11:14 Metoclopramide HCl (Reglan Inj) 5 mg Q6H PRN IV PUSH NAUSEA OR VOMITING; Start 08/22/17 at 08:00 Miscellaneous Information ([facility] [place], [place] Nursing Information) ALL NURSING DEPARTME... UNSCH PRN .XX SEE LABEL COMMENTS; Start 08/26/17 at 16:14; Stop 08/27/17 at 16: 13; Status DC Morphine Sulfate (Morphine Inj) 2 mg Q4H PRN IV PUSH PAIN 6-10; Start 08/22/17 at 21:45; Stop 08/26/17 at 23:41; Status DC Multivitamins/ Minerals Therapeutic (Theragran M Tab) 1 tab DAILY PO ; Start at 09:00; Stop 08/28/17 at 08:59; Status DC Naloxone HCl (Narcan Inj) 0.4 mg UNSCH PRN IV PUSH SEE LABEL COMMENTS; Start at 08:00 Ondansetron HCl (Zofran Inj) 4 mg ONCE ONCE IVP Last administered on at 04:42; Start 08/22/17 at 03:45; Stop 08/22/17 at 03:46; Status DC Pantoprazole Sodium (Protonix) 20 mg DAILY PO Last administered on 08/28/17at 09 :00; Start 08/23/17 at 09:00 Potassium Chloride/Dextrose/ Sod Cl 1,000 ml @ 70 mls/hr [id number] IV Last administered on 08/26/17at 18:24; Start 08/23/17 at 16:00 Potassium Chloride (KCl) 20 meq DAILY PO Last administered on 08/28/17at 09:00; Start 08/23/17 at 09:00 Povidone Iodine (Betadine 5% Antisepsis Kit) 1 applic DEPUTY TREASURER PRN EACH NARE SEE LABEL COMMENTS; Start 08/24/17 at 04:45; Stop 08/26/17 at 13:43; Status DC Prochlorperazine Edisylate (Compazine Inj) 10 mg ONCE ONCE IV PUSH Last administered on 08/22/17at 05:35; Start 08/22/17 at 05:30; Stop 08/22/17 at 05:31 ; Status DC Sodium Chloride 500 ml @ 30 mls/hr [id number] PRN IV SEE LABEL COMMENTS; Start at 04:45; Stop 08/26/17 at 13:42; Status DC Sodium Chloride (NS Flush) 2 ml BID IV FLUSH Last administered on 08/28/17at 09: 00; Start 08/22/17 at 09:00 Thiamine HCl (Vitamin B1) 100 mg DAILY PO ; Start 08/23/17 at 09:00 Valacyclovir HCl (Valtrex) 500 mg Q12HR PO Last administered on 08/27/17at 08:25 ; Start 08/26/17 at 21:00; Stop 08/27/17 at 09:01; Status DC A/P Problem List: (1) Choledocholithiasis ICD Code: K80.50 - Calculus of bile duct without cholangitis or cholecystitis without obstruction Status: Acute Assessment and Plan A/P Right upper quadrant pain with abnormal liver function tests, cholelithiasis with intra-hepatic and extrahepatic bile duct dilatation possible choledocholithiasis and gallstone pancreatitis. s/p ERCP with CBD dilation and stent placement. will need ERCP in three months for stent removal. s/p lap cholecystectomy. management per GS. forehead/back lesion- s/p biopsy- Retroperitoneal lymphadenopathy. consulted. thrombocytopenia- platelet count stable- evaluated by ; f/u as outpatient. Hypokalemia. Replaced Rash likely drug from aztreonam. Hx of multiple drug allergies. No respiratory compromise. Discontinued aztreonam. Benadryl as needed Multiple medical conditions of A. fib on Eliquis ( will resume on 08/29/17 per GS ) and Cardizem , leukopenia and thrombocytopenia followed by Dr. Oakes, GERD, hypertension, bilateral lower extremity edema on Lasix, osteoarthritis and migraines. Continue outpatient medications as appropriate DVT prophylaxis with SCD. Eliquis on hold pending GI evaluation Discharge Planning dc home when cleared by general surgery . see med list. f/u; pcp, GI, GS and oncology. d/w the patient. Sabino Vicente MD Aug 28, 2017 10:02
[2017-08-28] MEDS ORDERED: PANT20TA2 PO (10:03)
[2017-08-28] MEDS ORDERED: POTA-163 PO (10:03)
--- NOTE | 2017-08-28 10:04 | HHI.DS ---
Discharge Summary Admission Date Aug 22, 2017 at 07:58 Discharge Date: Aug 28, 2017 Admitting Diagnosis Choledocholithiasis, abdominal pain (1) Choledocholithiasis ICD Code: K80.50 - Calculus of bile duct without cholangitis or cholecystitis without obstruction Diagnosis: Principal Status: Acute Procedures ERCP/ lap chioma, excision of back mass, excision forehead mass Brief History - From Admission This is a 77-year-old female who presented to the emergency department complaining of acute onset of severe right flank achiness radiating to her back and right shoulder associated with nausea, vomiting and loose stools. States her symptoms started after having [employer] at dinner. Denies fever, chills and UTI symptoms. ER workup shows minimal stranding posterior to the pancreas, cholelithiasis with intrahepatic and extrahepatic bile duct dilatation. GI director of marketing communications requested transfer to [facility] for further evaluation and treatment. At this time, she has no complaints. Reports history of dilated ducts underwent extensive GI workup years ago including HIDA scan. All other systems reviewed negative CBC/BMP: 08/27/17 0615 08/25/17 0645 Significant Findings Laboratory Tests Test 08/26/17 05:55 08/27/17 06:15 Total Bilirubin 2.4 MG/DL (0.2-1.0) Direct Bilirubin 1.7 MG/DL (0.0-0.2) Aspartate Amino Transf (AST/SGOT) 47 U/L (15-37) Alkaline Phosphatase 168 U/L (45-117) Albumin 2.7 GM/DL (3.4-5.0) Hemoglobin 11.1 GM/DL (11.6-15.3) Hematocrit 34.6 % (35.0-46.0) Mean Corpuscular Volume 79.5 FL (80.0-100.0) Mean Corpuscular Hemoglobin 25.4 PG (27.0-34.0) Red Cell Distribution Width 19.7 % (11.6-17.2) Platelet Count 135 TH/MM3 (150-450) Neutrophils (%) (Auto) 90.6 % (16.0-70.0) Lymphocytes (%) (Auto) 4.8 % (9.0-44.0) Lymphocytes # (Auto) 0.3 TH/MM3 (1.0-4.8) Imaging Last Impressions GI Procedure 08/25/17 0000 Signed Impressions: CONCLUSION: Placement of internal biliary stent.. Abdomen/Pelvis CT 08/22/17 0336 Signed Impressions: CONCLUSION: 1. There is nondistention of the colon without significant inflammatory change s. 2. Scattered diverticulosis without diverticulitis. 3. Minimal stranding posterior to the pancreas of uncertain etiology but could represent pancreatitis in the right clinical setting. 4. Cholelithiasis. 5. Hepatic low densities, likely benign. 6. Scattered retroperitoneal lymphadenopathy largest measuring 13 mm. Gall Bladder Ultrasound 08/22/17 0000 Signed Impressions: CONCLUSION: 1. Cholelithiasis with intrahepatic and extrahepatic bile duct dilatation. No stone is visualized in the common duct on this examination but on recent CT in retrospect there are small high density structures in the distal common duct reyes spicious for distal common bile duct stones. 2. Pancreas has a normal appearance on this examination but demonstrated mild inflammatory change adjacent to the pancreas on recent CT. 3. There are benign-appearing hepatic and right renal cysts. PE at Discharge GENERAL: This is a well-nourished, well-developed patient, in no apparent distress. CARDIOVASCULAR: Regular rate and regular rhythm without murmurs, gallops, or rubs. RESPIRATORY: Clear to auscultation. Breath sounds equal bilaterally. No wheezes , rales, or rhonchi. GASTROINTESTINAL: Abdomen soft, non-tender, nondistended. Normal, active bowel sounds MUSCULOSKELETAL: Extremities without clubbing, cyanosis, or edema. NEURO: Alert & Oriented x4 to person, place, time, situation. Moves all ext x4 Hospital Course Right upper quadrant pain with abnormal liver function tests, cholelithiasis with intra-hepatic and extrahepatic bile duct dilatation possible choledocholithiasis and gallstone pancreatitis. s/p ERCP with CBD dilation and stent placement.will need ERCP in three months for stent removal. s/p lap cholecystectomy. management per GS. forehead/back lesion- s/p biopsy- Retroperitoneal lymphadenopathy. consulted. thrombocytopenia- platelet count stable- evaluated by ; f/u as outpatient. Hypokalemia. Replaced Rash likely drug from aztreonam. Hx of multiple drug allergies. No respiratory compromise. Discontinued aztreonam. Benadryl as needed Multiple medical conditions of A. fib on Eliquis ( will resume on 08/29/17 per GS ) and Cardizem , leukopenia and thrombocytopenia followed by Dr. Oakes, GERD, hypertension, bilateral lower extremity edema on Lasix, osteoarthritis and migraines. Continue outpatient medications as appropriate DVT prophylaxis with SCD. Eliquis on hold pending GI evaluation Pt Condition on Discharge: Stable Discharge Disposition: Discharge Home Discharge Time: <= 30 minutes Discharge Instructions DIET: Follow Instructions for: Heart Healthy Diet Activities you can perform: Regular-No Restrictions Sabino Vicente MD Aug 28, 2017 10:04
[2017-08-28] MEDS: D5-1/2 NS + KCL 10 MEQ INJ 1,000 ML IV SCH (10:24)
[2017-08-28] MEDS: MAGNESIUM OXIDE 400 MG TAB PO SCH (11:41)
[2017-08-28] MEDS: ACETAMINOPHEN/HYDROcodone 325 MG/5 MG TAB PO PRN ×3 (11:43→21:04)
--- NOTE | 2017-08-28 13:40 | PD.ONC.PN ---
Subjective Subjective Remarks Afebrile overnight. Patient resting in bed in nad. No complaints. Objective Data Date Time Temp Pulse Resp B/P (MAP) Pulse Ox O2 Delivery O2 Flow Rate FiO2 08/28/17 12:00 97.8 100 22 172/94 (120) 96 08/28/17 09:00 98 21 08/28/17 04:00 97.6 87 18 122/81 (95) 96 08/28/17 00:00 97.6 91 18 126/85 (99) 96 08/27/17 23:00 87 08/27/17 20:00 97.7 95 18 153/92 (112) 93 08/27/17 16:00 97.7 105 18 138/77 (97) 95 08/28/17 08/28/17 08/28/17 07:00 15:00 23:00 Intake Total 480 ml Balance 480 ml Result Diagram: 08/27/1715 08/25/17 0645 Administered Medications Medications (Trade) Dose Ordered Sig/Linda Route PRN Reason Start Time Stop Time Status Last Admin Dose Admin Sodium Chloride (NS Flush) 2 ml BID IV FLUSH 08/22/17 09:00 08/28/17 09:00 Acetaminophen (Tylenol) 650 mg Q4H PRN PO TEMP > 100.4 08/22/17 08:00 08/25/17 18:35 Diltiazem HCl (Cardizem Cd) 120 mg DAILY PO 08/23/17 09:00 08/28/17 09:00 Furosemide (Lasix) 20 mg DAILY PO 08/23/17 09:00 08/28/17 09:00 Pantoprazole Sodium (Protonix) 20 mg DAILY PO 08/23/17 09:00 08/28/17 09:00 Potassium Chloride (KCl) 20 meq DAILY PO 08/23/17 09:00 08/28/17 09:00 Magnesium Oxide (Mag-Ox) 400 mg DAILY@1100 PO 08/22/17 11:14 08/28/17 11:41 Diphenhydramine HCl (Benadryl) 25 mg Q4H PRN PO itchiong 08/23/17 10:30 08/25/17 18:35 Potassium Chloride/Dextrose/ Sod Cl 1,000 ml @ 70 mls/hr [id number] IV 08/23/17 16:00 08/26/17 18:24 Acetaminophen/ Hydrocodone Bitart ([place] 5-325 Mg) 1 tab Q4H PRN PO pain >5 08/26/17 23:45 08/28/17 11:43 Objective Remarks GENERAL: pleasant elderly female, sitting up in bed in nad. SKIN: Warm and dry. HEAD: Normocephalic. EYES: No injection or drainage. NECK: Supple, trachea midline. CARDIOVASCULAR: +S1/S2 RESPIRATORY: Breath sounds equal bilaterally. No accessory muscle use. GASTROINTESTINAL: Abdomen soft, non-tender, nondistended. EXTREMITIES: No cyanosis NEUROLOGICAL: awake and alert. normal speech. moving extremities. Assessment/Plan Assessment 77y/o female with a history of thrombocytopenia, admitted with abdominal pain status post laparoscopic cholecystectomy. history of atrial fibrillation, leukopenia, thrombocytopenia, GERD, hypertension , osteoarthritis and history of migraines Plan 1. chronic idiopathic thrombocytopenic purpura --platelet count has been stable during this admission. --check CBC today 2. s/p ERCP w/ sphincterectomy, stone removal and stent placement, s/p cholecystectomy --management per surgery --biopsies pending. 3. iron deficiency anemia: --receiving parenteral iron infusions. Laureen Lombardo Aug 28, 2017 13:40
[2017-08-28 13:56] LABS: HEMATOCRIT 37.9 % (35.0-46.0); MEAN CELL VOLUME 79.2 FL (80.0-100.0); MEAN CORPUSCULAR HEMOGLOBIN 25.1 PG (27.0-34.0); MEAN CORPUSCULAR HGB CONC 31.7 % (32.0-36.0); MEAN PLATELET VOLUME 8.4 FL (7.0-11.0); PLATELET COUNT 122 TH/MM3 (150-450); RED BLOOD COUNT 4.79 MIL/MM3 (4.00-5.30); RED CELL DISTRIBUTION WIDTH 20.3 % (11.6-17.2); WHITE BLOOD COUNT 6.6 TH/MM3 (4.0-11.0)
--- NOTE | 2017-08-28 16:10 | PD.CARD.PN ---
Subjective Subjective Remarks No CP or SOB, c/o R side/abdominal pain since earlier this AM Objective Medications Current Medications Medications (Trade) Dose Ordered Sig/Linda Route Start Time Stop Time Status Last Admin (NS Flush) 2 ml UNSCH PRN IV FLUSH 08/22/17 08:00 (NS Flush) 2 ml BID IV FLUSH 08/22/17 09:00 08/28/17 09:00 (Tylenol) 650 mg Q4H PRN PO 08/22/17 08:00 08/25/17 18:35 (Reglan Inj) 5 mg Q6H PRN IV PUSH 08/22/17 08:00 (Narcan Inj) 0.4 mg UNSCH PRN IV PUSH 08/22/17 08:00 (Cardizem Cd) 120 mg DAILY PO 08/23/17 09:00 08/28/17 09:00 (Lasix) 20 mg DAILY PO 08/23/17 09:00 08/28/17 09:00 (Protonix) 20 mg DAILY PO 08/23/17 09:00 08/28/17 09:00 (KCl) 20 meq DAILY PO 08/23/17 09:00 08/28/17 09:00 (Mag-Ox) 400 mg DAILY@1100 PO 08/22/17 11:14 08/28/17 11:41 (Vitamin B1) 100 mg DAILY PO 08/23/17 09:00 (Romazicon Inj) 0.2 mg Q1M PRN IV PUSH 08/22/17 13:30 (Ativan) 1 mg Q4H PRN PO 08/22/17 13:30 (Ativan Inj) 1 mg Q4H PRN IV PUSH 08/22/17 13:30 (Ativan) 2 mg Q2H PRN PO 08/22/17 13:30 (Ativan Inj) 2 mg Q2H PRN IV PUSH 08/22/17 13:30 (Ativan Inj) 2 mg Q1H PRN IV PUSH 08/22/17 13:30 (Ativan Inj) 2 mg Q15M PRN IV PUSH 08/22/17 13:30 (Haldol Inj) 2 mg Q15M PRN IM 08/22/17 13:30 (Benadryl) 25 mg Q4H PRN PO 08/23/17 10:30 08/25/17 18:35 Potassium Chloride/Dextrose/ Sod Cl 1,000 ml @ 70 mls/hr [id number] IV 08/23/17 16:00 08/26/17 18:24 ([place] 5-325 Mg) 1 tab Q4H PRN PO 08/26/17 23:45 08/28/17 15:31 Iron Sucrose 200 mg/Sodium Chloride 110 ml @ 110 mls/hr DAILY IV 08/28/17 09:00 08/30/17 09:59 Vital Signs / I&O Vital Signs Date Time Temp Pulse Resp B/P (MAP) Pulse Ox O2 Delivery O2 Flow Rate FiO2 08/28/17 12:00 97.8 100 22 172/94 (120) 96 08/28/17 09:00 98 21 08/28/17 04:00 97.6 87 18 122/81 (95) 96 08/28/17 00:00 97.6 91 18 126/85 (99) 96 08/27/17 23:00 87 08/27/17 20:00 97.7 95 18 153/92 (112) 93 I/O 08/27/17 08/27/17 08/27/17 08/28/17 08/28/17 08/28/17 07:00 15:00 23:00 07:00 15:00 23:00 Intake Total 1080 ml 620 ml 480 ml Output Total 1200 ml Balance -120 ml 620 ml 480 ml Intake Oral 240 ml 620 ml 480 ml IV Total 840 ml Output Urine Total 1200 ml # Voids 7 3 # Bowel Movements 0 Physical Exam GENERAL: In NAD. SKIN: Warm and dry. HEAD: Normocephalic. EYES: No scleral icterus. No injection or drainage. NECK: Supple, trachea midline. No JVD or lymphadenopathy. CARDIOVASCULAR: Irregular rate, without murmurs, gallops, or rubs. RESPIRATORY: Breath sounds equal bilaterally. No accessory muscle use. GASTROINTESTINAL: Abdomen soft, non-tender, nondistended. MUSCULOSKELETAL: No cyanosis, or edema. Laboratory Laboratory Tests Test 08/28/17 13:39 White Blood Count 6.6 TH/MM3 Red Blood Count 4.79 MIL/MM3 Hemoglobin 12.0 GM/DL Hematocrit 37.9 % Mean Corpuscular Volume 79.2 FL Mean Corpuscular Hemoglobin 25.1 PG Mean Corpuscular Hemoglobin Concent 31.7 % Red Cell Distribution Width 20.3 % Platelet Count 122 TH/MM3 Mean Platelet Volume 8.4 FL Assessment and Plan Problem List: (1) Choledocholithiasis ICD Codes: K80.50 - Calculus of bile duct without cholangitis or cholecystitis without obstruction Status: Acute (2) Gallstone pancreatitis ICD Codes: K85.10 - Biliary acute pancreatitis without necrosis or infection (3) CAD (coronary artery disease) ICD Codes: I25.10 - Atherosclerotic heart disease of [place] coronary artery without angina pectoris (4) Chronic atrial fibrillation ICD Codes: I48.2 - Chronic atrial fibrillation (5) HTN (hypertension) ICD Codes: I10 - Essential (primary) hypertension Status: Acute (6) Melanoma ICD Codes: C43.9 - Malignant melanoma of skin, unspecified Assessment and Plan No postoperative cardiac complications. No angina, CHF or significant arrhythmias. Restart anticoagulation as soon as possible to decrease the risk of CVA. Continue monitoring on telemetry. F/u w Dr. Mancini, her primary pasteurizing supervisor, after discharge. To Chapin MD Aug 28, 2017 16:10
--- NOTE | 2017-08-28 17:02 | HHI.PR ---
Subjective Subjective Notes Was ready to go home until she had sudden onset of pain this afternoon Objective Vitals/I&O Vital Signs Date Time Temp Pulse Resp B/P (MAP) Pulse Ox O2 Delivery O2 Flow Rate FiO2 08/28/17 12:00 97.8 100 22 172/94 (120) 96 08/28/17 09:00 21 08/26/17 22:22 Nasal Cannula 2.00 Labs Laboratory Tests Test 08/28/17 13:39 White Blood Count 6.6 Red Blood Count 4.79 Hemoglobin 12.0 Hematocrit 37.9 Mean Corpuscular Volume 79.2 Mean Corpuscular Hemoglobin 25.1 Mean Corpuscular Hemoglobin Concent 31.7 Red Cell Distribution Width 20.3 Platelet Count 122 Mean Platelet Volume 8.4 Cardiovascular: Regular Lungs: Clear Abdomen: Other (lap sites c/d/i; abdomen soft; tenderness with minimal palpation in RUQ ) Extremities: No edema A/P Assessment and Plan 77 year old female POD2 Lap chioma doing well, excision of back mass, excision of forehead lesion -Tolerating regular diet -OOB -Pain control -Dr. Oakes following -Okay to restart Eliquis on Thursday -IS -Repeat labs in AM Maribel Thompson/First Annmarie LUNA Aug 28, 2017 17:02
[2017-08-28] MEDS: DOCUSATE SODIUM 100 MG CAP PO SCH (21:00)
[2017-08-29] VITALS (9 sets, daily range): BP systolic 125–143; BP diastolic 73–85; PULSE 84–102; RESP 17–22; TEMP 97.3–98.9; O2SAT 95–97
[2017-08-29] MEDS: ACETAMINOPHEN/HYDROcodone 325 MG/5 MG TAB PO PRN ×4 (03:31→20:12)
[2017-08-29 05:33] LABS: AUTOMATED NEUTROPHIL # 8.3 TH/MM3 (1.8-7.7); BASOPHIL % 0.2 % (0.0-2.0); EOSINOPHIL % 0.4 % (0.0-4.0); HEMATOCRIT 34.8 % (35.0-46.0); HEMOGLOBIN 11.2 GM/DL (11.6-15.3); LYMPH % 3.5 % (9.0-44.0); LYMPHOCYTE # 0.3 TH/MM3 (1.0-4.8); MEAN CORPUSCULAR HEMOGLOBIN 25.5 PG (27.0-34.0); MEAN CORPUSCULAR HGB CONC 32.3 % (32.0-36.0); MEAN PLATELET VOLUME 8.9 FL (7.0-11.0); MONO % 5.9 % (0.0-8.0); MONOCYTE # 0.5 TH/MM3 (0-0.9); PLATELET COUNT 116 TH/MM3 (150-450); RED BLOOD COUNT 4.41 MIL/MM3 (4.00-5.30); WHITE BLOOD COUNT 9.3 TH/MM3 (4.0-11.0)
[2017-08-29 05:58] LABS: BICARBONATE 24.1 MEQ/L (21.0-32.0); CALCIUM 7.9 MG/DL (8.5-10.1); CREATININE 0.74 MG/DL (0.50-1.00)
[2017-08-29] MEDS: POTASSIUM CHLORIDE 20 MEQ CONTROLLED RELEASE TAB PO SCH (08:59)
[2017-08-29] MEDS: PANTOPRAZOLE SOD 20 MG DELAYED RELEASE TAB PO SCH (08:59)
[2017-08-29] MEDS: DILTIAZEM-CD 120 MG CAP ER PO SCH (08:59)
[2017-08-29] MEDS: FUROSEMIDE 20 MG TAB PO SCH (09:00)
[2017-08-29] MEDS: DOCUSATE SODIUM 100 MG CAP PO SCH ×2 (09:00→20:12)
[2017-08-29] MEDS: IRON SUCROSE INJ 200 MG in SODIUM CHLORIDE 0.9% INJ 100 ML IV SCH (09:00)
[2017-08-29] MEDS: THIAMINE HCL 100 MG TAB PO SCH (09:00)
[2017-08-29] MEDS: SODIUM CHLORIDE 0.9% FLUSH 10 ML FLUSH IV FLUSH SCH ×2 (09:01→16:30)
--- NOTE | 2017-08-29 10:26 | HHI.PR ---
Subjective Remarks in no acute distress. still with some pain to the RUQ. however tolerating the diet with no nausea or emesis.afebrile. Objective Vitals Vital Signs Date Time Temp Pulse Resp B/P (MAP) Pulse Ox O2 Delivery O2 Flow Rate FiO2 08/29/17 06:12 20 08/29/17 04:00 98.1 102 20 143/82 (102) 95 08/29/17 01:34 84 08/29/17 00:00 98.9 96 22 136/76 (96) 95 08/28/17 20:36 97 21 08/28/17 20:00 97.9 101 22 126/70 (88) 96 08/28/17 16:00 98.4 96 22 157/76 (103) 97 08/28/17 12:00 97.8 100 22 172/94 (120) 96 I/O 08/28/17 08/28/17 08/28/17 08/29/17 08/29/17 08/29/17 07:00 15:00 23:00 07:00 15:00 23:00 Intake Total 480 ml 1050 ml 360 ml Output Total 700 ml Balance 480 ml 1050 ml -340 ml Intake Oral 480 ml 700 ml 360 ml IV Total 350 ml Output Urine Total 700 ml # Voids 3 3 # Bowel Movements 0 Result Diagram: 08/29/17 0433 08/29/17432 Objective Remarks GENERAL: This is a well-nourished, well-developed patient, in no apparent distress. CARDIOVASCULAR: Regular rate and regular rhythm without murmurs, gallops, or rubs. RESPIRATORY: Clear to auscultation. Breath sounds equal bilaterally. No wheezes , rales, or rhonchi. GASTROINTESTINAL: Abdomen soft, mild RUQ tenderness, nondistended. Normal, active bowel sounds MUSCULOSKELETAL: Extremities without clubbing, cyanosis, or edema. NEURO: Alert & Oriented x4 to person, place, time, situation. Moves all ext x4 Procedures ERCP/ lap chioma, excision of back mass, excision forehead mass Medications and IVs Inpatient Medications Acetaminophen (Tylenol) 650 mg Q4H PRN PO TEMP > 100.4 Last administered on at 18:35; Start 08/22/17 at 08:00 Acetaminophen/ Hydrocodone Bitart ([place] 5-325 Mg) 1 tab Q4H PRN PO pain >5 Last administered on 08/29/17at 09:00; Start 08/26/17 at 23:45 Aztreonam 1000 mg/ Sodium Chloride 100 ml @ 200 mls/hr Q12H IV Last administered on 08/22/17at 23:48; Start 08/22/17 at 12:00; Stop 08/23/17 at 10:30 ; Status DC Chlorhexidine Gluconate (Chlorhexidine 2% Cloth) 3 pack ORTHOTIC/PROSTHETIC PRACTITIONER PRN TOPICAL SEE LABEL COMMENTS; Start 08/24/17 at 04:45; Stop 08/26/17 at 13:43; Status DC Diltiazem HCl (Cardizem Cd) 120 mg ONCE ONCE PO Last administered on at 13:31; Start 08/22/17 at 13:00; Stop 08/22/17 at 13:10; Status DC Diphenhydramine HCl (Benadryl) 25 mg Q4H PRN PO itchiong Last administered on at 18:35; Start 08/23/17 at 10:30 Docusate Sodium (Colace) 100 mg BID PO Last administered on 08/29/17at 09:00; Start 08/28/17 at 21:00 Flumazenil (Romazicon Inj) 0.2 mg Q1M PRN IV PUSH SEE LABEL COMMENTS; Start at 13:30 Folic Acid (Folate) 1 mg DAILY PO ; Start 08/23/17 at 09:00; Stop 08/28/17 at 08 :59; Status DC Furosemide (Lasix) 20 mg DAILY PO Last administered on 08/29/17at 09:00; Start 08/23/17 at 09:00 Haloperidol Lactate (Haldol Inj) 2 mg Q15M PRN IM SEE LABEL COMMENTS; Start at 13:30 Iron Sucrose 200 mg/Sodium Chloride 110 ml @ 110 mls/hr DAILY IV ; Start at 09:00; Stop 08/30/17 at 09:59 Ketorolac Tromethamine (Toradol Inj) 15 mg ONCE ONCE IV PUSH Last administered on 08/22/17at 09:26; Start 08/22/17 at 09:30; Stop 08/22/17 at 09:31 ; Status DC Lactated Ringer's 1,000 ml @ 30 mls/hr Q24H PRN IV SEE LABEL COMMENTS Last administered on 08/26/17at 11:30; Start 08/24/17 at 04:45; Stop 08/26/17 at 13:42 ; Status DC Levofloxacin/ Dextrose 100 ml @ 100 mls/hr Q24H IV ; Start 08/22/17 at 08:00; Stop 08/22/17 at 15:22; Status DC Lorazepam (Ativan Inj) 2 mg Q15M PRN IV PUSH CIWA > 20; Start 08/22/17 at 13:30 Lorazepam (Ativan) 2 mg Q2H PRN PO CIWA 11-14; Start 08/22/17 at 13:30 Magnesium Oxide (Mag-Ox) 400 mg DAILY@1100 PO Last administered on 08/28/17at 11 :41; Start 08/22/17 at 11:14 Metoclopramide HCl (Reglan Inj) 5 mg Q6H PRN IV PUSH NAUSEA OR VOMITING; Start 08/22/17 at 08:00 Miscellaneous Information ([facility] Nursing Information) ALL NURSING DEPARTME... UNSCH PRN .XX SEE LABEL COMMENTS; Start 08/26/17 at 16:14; Stop 08/27/17 at 16: 13; Status DC Morphine Sulfate (Morphine Inj) 2 mg Q4H PRN IV PUSH PAIN 6-10; Start 08/22/17 at 21:45; Stop 08/26/17 at 23:41; Status DC Multivitamins/ Minerals Therapeutic (Theragran M Tab) 1 tab DAILY PO ; Start at 09:00; Stop 08/28/17 at 08:59; Status DC Naloxone HCl (Narcan Inj) 0.4 mg UNSCH PRN IV PUSH SEE LABEL COMMENTS; Start at 08:00 Ondansetron HCl (Zofran Inj) 4 mg ONCE ONCE IVP Last administered on at 04:42; Start 08/22/17 at 03:45; Stop 08/22/17 at 03:46; Status DC Pantoprazole Sodium (Protonix) 20 mg DAILY PO Last administered on 08/29/17at 08 :59; Start 08/23/17 at 09:00 Potassium Chloride/Dextrose/ Sod Cl 1,000 ml @ 70 mls/hr [id number] IV Last administered on 08/26/17at 18:24; Start 08/23/17 at 16:00; Stop 08/29/17 at 00:06 ; Status DC Potassium Chloride (KCl) 20 meq DAILY PO Last administered on 08/29/17at 08:59; Start 08/23/17 at 09:00 Povidone Iodine (Betadine 5% Antisepsis Kit) 1 applic ORTHOTIC/PROSTHETIC PRACTITIONER PRN EACH NARE SEE LABEL COMMENTS; Start 08/24/17 at 04:45; Stop 08/26/17 at 13:43; Status DC Prochlorperazine Edisylate (Compazine Inj) 10 mg ONCE ONCE IV PUSH Last administered on 08/22/17at 05:35; Start 08/22/17 at 05:30; Stop 08/22/17 at 05:31 ; Status DC Sodium Chloride 500 ml @ 30 mls/hr [id number] PRN IV SEE LABEL COMMENTS; Start at 04:45; Stop 08/26/17 at 13:42; Status DC Sodium Chloride (NS Flush) 2 ml BID IV FLUSH Last administered on 08/29/17at 09: 01; Start 08/22/17 at 09:00 Thiamine HCl (Vitamin B1) 100 mg DAILY PO ; Start 08/23/17 at 09:00 Valacyclovir HCl (Valtrex) 500 mg Q12HR PO Last administered on 08/27/17at 08:25 ; Start 08/26/17 at 21:00; Stop 08/27/17 at 09:01; Status DC A/P Problem List: (1) Choledocholithiasis ICD Code: K80.50 - Calculus of bile duct without cholangitis or cholecystitis without obstruction Status: Acute Assessment and Plan A/P Right upper quadrant pain with abnormal liver function tests, cholelithiasis with intra-hepatic and extrahepatic bile duct dilatation possible choledocholithiasis and gallstone pancreatitis. s/p ERCP with CBD dilation and stent placement. will need ERCP in three months for stent removal. s/p lap cholecystectomy. management per GS. forehead/back lesion- s/p biopsy- pathology consistent with melanoma. oncology following. Retroperitoneal lymphadenopathy. consulted. thrombocytopenia- platelet count stable- evaluated by ; f/u as outpatient. Hypokalemia. Replaced Rash likely drug from aztreonam. Hx of multiple drug allergies. No respiratory compromise. Discontinued aztreonam. Benadryl as needed Multiple medical conditions of A. fib on Eliquis ( will resume today after seen by ARUN) and Cardizem , leukopenia and thrombocytopenia followed by Dr. Oakes, GERD , hypertension, bilateral lower extremity edema on Lasix, osteoarthritis and migraines. Continue outpatient medications as appropriate DVT prophylaxis with SCD. Eliquis on hold pending GI evaluation Discharge Planning dc home when cleared by general surgery and oncology. see med list. f/u; pcp, GI, GS and oncology. d/w the patient. Sabino Vicente MD Aug 29, 2017 10:26
[2017-08-29] MEDS ORDERED: POTASSIUM CHLORIDE 10 MEQ CONTROLLED RELEASE TAB PO ONE (10:30)
[2017-08-29] MEDS: MAGNESIUM OXIDE 400 MG TAB PO SCH (11:03)
--- NOTE | 2017-08-29 15:14 | HHI.PR ---
cc: Thi Haynes MD Subjective Subjective Notes DAILY PROGRESS NOTE FOR SURGICAL ATTENDING, DR. THI HAYNES Sitting up in bed Pain under control Tolerating diet Objective Vitals/I&O Vital Signs Date Time Temp Pulse Resp B/P (MAP) Pulse Ox O2 Delivery O2 Flow Rate FiO2 08/29/17 12:00 98.2 91 17 130/73 (92) 96 08/29/17 10:49 21 08/26/17 22:22 Nasal Cannula 2.00 Labs Laboratory Tests Test 08/29/17 04:33 White Blood Count 9.3 Red Blood Count 4.41 Hemoglobin 11.2 Hematocrit 34.8 Mean Corpuscular Volume 79.0 Mean Corpuscular Hemoglobin 25.5 Mean Corpuscular Hemoglobin Concent 32.3 Red Cell Distribution Width 20.0 Platelet Count 116 Mean Platelet Volume 8.9 Neutrophils (%) (Auto) 90.0 Lymphocytes (%) (Auto) 3.5 Monocytes (%) (Auto) 5.9 Eosinophils (%) (Auto) 0.4 Basophils (%) (Auto) 0.2 Neutrophils # (Auto) 8.3 Lymphocytes # (Auto) 0.3 Monocytes # (Auto) 0.5 Eosinophils # (Auto) 0.0 Basophils # (Auto) 0.0 CBC Comment DIFF FINAL Differential Comment Blood Urea Nitrogen 10 Creatinine 0.74 Random Glucose 123 Calcium Level 7.9 Sodium Level 136 Potassium Level 3.3 Chloride Level 102 Carbon Dioxide Level 24.1 Anion Gap 10 Estimat Glomerular Filtration Rate 76 Lipase 120 Radiology Last Impressions GI Procedure 08/25/17 0000 Signed Impressions: CONCLUSION: Placement of internal biliary stent.. Abdomen/Pelvis CT 08/22/17 0336 Signed Impressions: CONCLUSION: 1. There is nondistention of the colon without significant inflammatory change s. 2. Scattered diverticulosis without diverticulitis. 3. Minimal stranding posterior to the pancreas of uncertain etiology but could represent pancreatitis in the right clinical setting. 4. Cholelithiasis. 5. Hepatic low densities, likely benign. 6. Scattered retroperitoneal lymphadenopathy largest measuring 13 mm. Gall Bladder Ultrasound 08/22/17 0000 Signed Impressions: CONCLUSION: 1. Cholelithiasis with intrahepatic and extrahepatic bile duct dilatation. No stone is visualized in the common duct on this examination but on recent CT in retrospect there are small high density structures in the distal common duct reyes spicious for distal common bile duct stones. 2. Pancreas has a normal appearance on this examination but demonstrated mild inflammatory change adjacent to the pancreas on recent CT. 3. There are benign-appearing hepatic and right renal cysts. Abdomen: Post-op tenderness A/P Assessment and Plan 77-year-old female who underwent laparoscopic cholecystectomy after ERCP for choledocholithiasis Was set for discharge but then had some abdominal discomfort and kept her another day. Doing well now still has some minor right upper quadrant discomfort when deep breathing I suspect this should resolve Attending Statement NOTE FOR SURGICAL ATTENDING, DR. THI HAYNES I attest that I had a [id number] encounter with the patient on the same day, and personally performed and documented my assessment and findings in the medical record. The following services were provided during this hospital visit: Chart data review, vital sign assessments/reviewing monitor data Review of consultations notes if present. Medication orders/review and/or management Ordering and/or reviewing lab tests Ordering and/or interpreting/reviewing x-rays and/or diagnostic studies Care of the patient and discussion of the patient with the care team Documentation time To help prompt me to consider important information that might be impacting today's encounter and assessment, Information from prior notes written by myself or my colleagues may have been "brought forward/copy and pasted" into today's note. Thi Haynes MD Aug 29, 2017 15:14
[2017-08-29] MEDS: APIXABAN 2.5 MG TABLET PO SCH (20:13)
[2017-08-30] VITALS (7 sets, daily range): BP systolic 124–168; BP diastolic 68–82; PULSE 85–103; RESP 17–20; TEMP 97.2–98.6; O2SAT 95–98
[2017-08-30] MEDS: ACETAMINOPHEN/HYDROcodone 325 MG/5 MG TAB PO PRN ×4 (03:43→21:08)
[2017-08-30] MEDS: THIAMINE HCL 100 MG TAB PO SCH (06:58)
[2017-08-30] MEDS: IRON SUCROSE INJ 200 MG in SODIUM CHLORIDE 0.9% INJ 100 ML IV SCH (06:58)
[2017-08-30] MEDS: POTASSIUM CHLORIDE 20 MEQ CONTROLLED RELEASE TAB PO SCH (09:09)
[2017-08-30] MEDS: DILTIAZEM-CD 120 MG CAP ER PO SCH (09:09)
[2017-08-30] MEDS: FUROSEMIDE 20 MG TAB PO SCH (09:10)
[2017-08-30] MEDS: PANTOPRAZOLE SOD 20 MG DELAYED RELEASE TAB PO SCH (09:10)
[2017-08-30] MEDS: DOCUSATE SODIUM 100 MG CAP PO SCH ×2 (09:10→20:14)
[2017-08-30] MEDS: APIXABAN 2.5 MG TABLET PO SCH ×2 (09:10→20:14)
[2017-08-30] MEDS: SODIUM CHLORIDE 0.9% FLUSH 10 ML FLUSH IV FLUSH SCH ×2 (09:11→09:56)
[2017-08-30] MEDS: MAGNESIUM OXIDE 400 MG TAB PO SCH (09:20)
--- NOTE | 2017-08-30 10:33 | HHI.PR ---
Subjective Remarks in no acute distress. still has some pain to the RUQ. no nausea or vomiting. no fever. Objective Vitals Vital Signs Date Time Temp Pulse Resp B/P (MAP) Pulse Ox O2 Delivery O2 Flow Rate FiO2 08/30/17 09:00 88 08/30/17 08:00 98.6 90 17 132/76 (94) 96 08/30/17 05:19 20 08/30/17 04:00 97.2 103 20 168/82 (110) 98 08/30/17 00:00 97.8 85 18 132/74 (93) 98 08/29/17 21:00 96 08/29/17 20:00 97.3 88 20 125/77 (93) 97 08/29/17 16:00 98.9 101 19 136/85 (102) 96 08/29/17 12:00 98.2 91 17 130/73 (92) 96 08/29/17 10:49 21 I/O 08/29/17 08/29/17 08/29/17 08/30/17 08/30/17 08/30/17 07:00 15:00 23:00 07:00 15:00 23:00 Intake Total 360 ml 800 ml Output Total 700 ml Balance -340 ml 800 ml Intake Oral 360 ml 800 ml Output Urine Total 700 ml # Voids 5 # Bowel Movements 0 1 Result Diagram: 08/29/1743208/29/17 043 Objective Remarks GENERAL: This is a well-nourished, well-developed patient, in no apparent distress. CARDIOVASCULAR: Regular rate and regular rhythm without murmurs, gallops, or rubs. RESPIRATORY: Clear to auscultation. Breath sounds equal bilaterally. No wheezes , rales, or rhonchi. GASTROINTESTINAL: Abdomen soft, mild RUQ tenderness, nondistended. Normal, active bowel sounds MUSCULOSKELETAL: Extremities without clubbing, cyanosis, or edema. NEURO: Alert & Oriented x4 to person, place, time, situation. Moves all ext x4 Procedures ERCP/ lap chioma, excision of back mass, excision forehead mass Medications and IVs Inpatient Medications Acetaminophen (Tylenol) 650 mg Q4H PRN PO TEMP > 100.4 Last administered on at 18:35; Start 08/22/17 at 08:00 Acetaminophen/ Hydrocodone Bitart ([place] 5-325 Mg) 1 tab Q4H PRN PO pain >5 Last administered on 08/30/17at 03:43; Start 08/26/17 at 23:45 Apixaban (Eliquis) 2.5 mg BID PO Last administered on 08/30/17at 09:10; Start at 21:00 Aztreonam 1000 mg/ Sodium Chloride 100 ml @ 200 mls/hr Q12H IV Last administered on 08/22/17at 23:48; Start 08/22/17 at 12:00; Stop 08/23/17 at 10:30 ; Status DC Chlorhexidine Gluconate (Chlorhexidine 2% Cloth) 3 pack [employer] PRN TOPICAL SEE LABEL COMMENTS; Start 08/24/17 at 04:45; Stop 08/26/17 at 13:43; Status DC Diltiazem HCl (Cardizem Cd) 120 mg ONCE ONCE PO Last administered on at 13:31; Start 08/22/17 at 13:00; Stop 08/22/17 at 13:10; Status DC Diphenhydramine HCl (Benadryl) 25 mg Q4H PRN PO itchiong Last administered on at 18:35; Start 08/23/17 at 10:30 Docusate Sodium (Colace) 100 mg BID PO Last administered on 08/30/17at 09:10; Start 08/28/17 at 21:00 Flumazenil (Romazicon Inj) 0.2 mg Q1M PRN IV PUSH SEE LABEL COMMENTS; Start at 13:30 Folic Acid (Folate) 1 mg DAILY PO ; Start 08/23/17 at 09:00; Stop 08/28/17 at 08 :59; Status DC Furosemide (Lasix) 20 mg DAILY PO Last administered on 08/30/17at 09:10; Start 08/23/17 at 09:00 Haloperidol Lactate (Haldol Inj) 2 mg Q15M PRN IM SEE LABEL COMMENTS; Start at 13:30 Iron Sucrose 200 mg/Sodium Chloride 110 ml @ 110 mls/hr DAILY IV ; Start at 09:00; Stop 08/30/17 at 09:59; Status DC Ketorolac Tromethamine (Toradol Inj) 15 mg ONCE ONCE IV PUSH Last administered on 08/22/17at 09:26; Start 08/22/17 at 09:30; Stop 08/22/17 at 09:31 ; Status DC Lactated Ringer's 1,000 ml @ 30 mls/hr Q24H PRN IV SEE LABEL COMMENTS Last administered on 08/26/17at 11:30; Start 08/24/17 at 04:45; Stop 08/26/17 at 13:42 ; Status DC Levofloxacin/ Dextrose 100 ml @ 100 mls/hr Q24H IV ; Start 08/22/17 at 08:00; Stop 08/22/17 at 15:22; Status DC Lorazepam (Ativan Inj) 2 mg Q15M PRN IV PUSH CIWA > 20; Start 08/22/17 at 13:30 Lorazepam (Ativan) 2 mg Q2H PRN PO CIWA 11-14; Start 08/22/17 at 13:30 Magnesium Oxide (Mag-Ox) 400 mg DAILY@1100 PO Last administered on 08/30/17at 09 :20; Start 08/22/17 at 11:14 Metoclopramide HCl (Reglan Inj) 5 mg Q6H PRN IV PUSH NAUSEA OR VOMITING; Start 08/22/17 at 08:00 Miscellaneous Information ([facility] [place] Nursing Information) ALL NURSING DEPARTME... UNSCH PRN .XX SEE LABEL COMMENTS; Start 08/26/17 at 16:14; Stop 08/27/17 at 16: 13; Status DC Morphine Sulfate (Morphine Inj) 2 mg Q4H PRN IV PUSH PAIN 6-10; Start 08/22/17 at 21:45; Stop 08/26/17 at 23:41; Status DC Multivitamins/ Minerals Therapeutic (Theragran M Tab) 1 tab DAILY PO ; Start at 09:00; Stop 08/28/17 at 08:59; Status DC Naloxone HCl (Narcan Inj) 0.4 mg UNSCH PRN IV PUSH SEE LABEL COMMENTS; Start at 08:00 Ondansetron HCl (Zofran Inj) 4 mg ONCE ONCE IVP Last administered on at 04:42; Start 08/22/17 at 03:45; Stop 08/22/17 at 03:46; Status DC Pantoprazole Sodium (Protonix) 20 mg DAILY PO Last administered on 08/30/17at 09 :10; Start 08/23/17 at 09:00 Potassium Chloride/Dextrose/ Sod Cl 1,000 ml @ 70 mls/hr [id number] IV Last administered on 08/26/17at 18:24; Start 08/23/17 at 16:00; Stop 08/29/17 at 00:06 ; Status DC Potassium Chloride (KCl) 30 meq ONCE ONCE PO Last administered on 08/29/17at 11 :03; Start 08/29/17 at 10:30; Stop 08/29/17 at 10:31; Status DC Povidone Iodine (Betadine 5% Antisepsis Kit) 1 applic [employer] PRN EACH NARE SEE LABEL COMMENTS; Start 08/24/17 at 04:45; Stop 08/26/17 at 13:43; Status DC Prochlorperazine Edisylate (Compazine Inj) 10 mg ONCE ONCE IV PUSH Last administered on 08/22/17at 05:35; Start 08/22/17 at 05:30; Stop 08/22/17 at 05:31 ; Status DC Sodium Chloride 500 ml @ 30 mls/hr [id number] PRN IV SEE LABEL COMMENTS; Start at 04:45; Stop 08/26/17 at 13:42; Status DC Sodium Chloride (NS Flush) 2 ml BID IV FLUSH Last administered on 08/30/17at 09: 56; Start 08/22/17 at 09:00 Thiamine HCl (Vitamin B1) 100 mg DAILY PO ; Start 08/23/17 at 09:00 Valacyclovir HCl (Valtrex) 500 mg Q12HR PO Last administered on 08/27/17at 08:25 ; Start 08/26/17 at 21:00; Stop 08/27/17 at 09:01; Status DC A/P Problem List: (1) Choledocholithiasis ICD Code: K80.50 - Calculus of bile duct without cholangitis or cholecystitis without obstruction Status: Acute Assessment and Plan A/P Right upper quadrant pain with abnormal liver function tests, cholelithiasis with intra-hepatic and extrahepatic bile duct dilatation possible choledocholithiasis and gallstone pancreatitis. s/p ERCP with CBD dilation and stent placement. will need ERCP in three months for stent removal. s/p lap cholecystectomy. still with some pain to the RUQ- continue with pain control. management per GS. forehead/back lesion- s/p biopsy- pathology consistent with melanoma. oncology following. Retroperitoneal lymphadenopathy. consulted. thrombocytopenia- platelet count stable- evaluated by ; f/u as outpatient. Hypokalemia. Replaced Rash likely drug from aztreonam. Hx of multiple drug allergies. No respiratory compromise. Discontinued aztreonam. Benadryl as needed Multiple medical conditions of A. fib on Eliquis ( will resume today after seen by GS) and Cardizem , leukopenia and thrombocytopenia followed by Dr. Oakes, GERD , hypertension, bilateral lower extremity edema on Lasix, osteoarthritis and migraines. Continue outpatient medications as appropriate DVT prophylaxis with SCD. Eliquis on hold pending GI evaluation Discharge Planning dc home-likely tomorrow- when pain is better and cleared by general surgery and oncology. see med list. f/u; pcp, GI, GS and oncology. d/w the patient. Sabino Vicente MD Aug 30, 2017 10:33
--- NOTE | 2017-08-30 12:31 | HHI.PR ---
Subjective Subjective Notes Patient indicates she is more tender than anticipated following surgery. Her tenderness primarily between the right upper quadrant laparoscopy incisions. The hydrocodone is effective. She is tolerating diet of fruits and vegetables, does not really like the hospital food. She is getting up and down to the bathroom on her own. She is anticipating discharge home tomorrow, indicating she needs to see Dr. Shukla regarding her melanoma prior to discharge. Objective Vitals/I&O Vital Signs Date Time Temp Pulse Resp B/P (MAP) Pulse Ox O2 Delivery O2 Flow Rate FiO2 08/30/17 09:00 88 08/30/17 08:00 98.6 17 132/76 (94) 96 08/29/17 10:49 21 08/26/17 22:22 Nasal Cannula 2.00 Radiology Last Impressions GI Procedure 08/25/17 0000 Signed Impressions: CONCLUSION: Placement of internal biliary stent.. Abdomen/Pelvis CT 08/22/17 0336 Signed Impressions: CONCLUSION: 1. There is nondistention of the colon without significant inflammatory change s. 2. Scattered diverticulosis without diverticulitis. 3. Minimal stranding posterior to the pancreas of uncertain etiology but could represent pancreatitis in the right clinical setting. 4. Cholelithiasis. 5. Hepatic low densities, likely benign. 6. Scattered retroperitoneal lymphadenopathy largest measuring 13 mm. Gall Bladder Ultrasound 08/22/17 0000 Signed Impressions: CONCLUSION: 1. Cholelithiasis with intrahepatic and extrahepatic bile duct dilatation. No stone is visualized in the common duct on this examination but on recent CT in retrospect there are small high density structures in the distal common duct reyes spicious for distal common bile duct stones. 2. Pancreas has a normal appearance on this examination but demonstrated mild inflammatory change adjacent to the pancreas on recent CT. 3. There are benign-appearing hepatic and right renal cysts. Abdomen: Non-distended, Other (Tender in the right upper quadrant. No rebound or guarding. Incisions appear to be healing well but he Steri-Strips without erythema or drainage.) A/P Assessment and Plan Postop lap chioma, tenderness between incision sites. Skin excisions, question melanoma, to be seen by Dr. Mroan. Patient is anticipating discharge on Thursday. Adelso Crespo MD Aug 30, 2017 12:31
[2017-08-31] VITALS (7 sets, daily range): BP systolic 123–167; BP diastolic 66–88; PULSE 79–96; RESP 18–20; TEMP 97.3–98.6; O2SAT 96–97
[2017-08-31] MEDS: ACETAMINOPHEN/HYDROcodone 325 MG/5 MG TAB PO PRN ×3 (02:37→16:09)
[2017-08-31 03:05] LABS: BASOPHIL % 0.2 % (0.0-2.0); EOSINOPHIL # 0.3 TH/MM3 (0-0.4); EOSINOPHIL % 4.8 % (0.0-4.0); HEMATOCRIT 35.1 % (35.0-46.0); HEMOGLOBIN 11.1 GM/DL (11.6-15.3); LYMPH % 4.8 % (9.0-44.0); LYMPHOCYTE # 0.4 TH/MM3 (1.0-4.8); MEAN CELL VOLUME 79.2 FL (80.0-100.0); MEAN CORPUSCULAR HEMOGLOBIN 24.9 PG (27.0-34.0); MEAN CORPUSCULAR HGB CONC 31.5 % (32.0-36.0); MEAN PLATELET VOLUME 8.7 FL (7.0-11.0); MONOCYTE # 0.5 TH/MM3 (0-0.9); NEUT % 83.2 % (16.0-70.0); PLATELET COUNT 156 TH/MM3 (150-450); RED BLOOD COUNT 4.44 MIL/MM3 (4.00-5.30); RED CELL DISTRIBUTION WIDTH 19.9 % (11.6-17.2); WHITE BLOOD COUNT 7.2 TH/MM3 (4.0-11.0)
[2017-08-31 03:27] LABS: BICARBONATE 25.6 MEQ/L (21.0-32.0); CALCIUM 8.1 MG/DL (8.5-10.1); CREATININE 0.58 MG/DL (0.50-1.00)
[2017-08-31] MEDS: THIAMINE HCL 100 MG TAB PO SCH (09:00)
[2017-08-31] MEDS: DOCUSATE SODIUM 100 MG CAP PO SCH (09:55)
[2017-08-31] MEDS: PANTOPRAZOLE SOD 20 MG DELAYED RELEASE TAB PO SCH (09:55)
[2017-08-31] MEDS: DILTIAZEM-CD 120 MG CAP ER PO SCH (09:55)
[2017-08-31] MEDS: POTASSIUM CHLORIDE 20 MEQ CONTROLLED RELEASE TAB PO SCH (09:56)
[2017-08-31] MEDS: APIXABAN 2.5 MG TABLET PO SCH (09:56)
[2017-08-31] MEDS: SODIUM CHLORIDE 0.9% FLUSH 10 ML FLUSH IV FLUSH SCH (09:56)
[2017-08-31] MEDS: FUROSEMIDE 20 MG TAB PO SCH (09:56)
--- NOTE | 2017-08-31 10:44 | HHI.PR ---
Subjective Remarks in no acute distress. abdominal pain is better. no other complaints. Objective Vitals Vital Signs Date Time Temp Pulse Resp B/P (MAP) Pulse Ox O2 Delivery O2 Flow Rate FiO2 08/31/17 08:00 97.3 96 19 167/88 (114) 96 08/31/17 04:00 98.0 87 20 133/77 (95) 97 08/31/17 00:39 84 08/31/17 00:00 97.9 82 20 142/66 (91) 97 08/30/17 22:40 20 08/30/17 20:00 97.8 95 20 124/68 (86) 97 08/30/17 16:00 97.7 90 19 132/76 (94) 95 08/30/17 12:00 98.0 91 18 135/78 (97) 95 I/O 08/30/17 08/30/17 08/30/17 08/31/17 08/31/17 08/31/17 07:00 15:00 23:00 07:00 15:00 23:00 Intake Total 770 ml 360 ml Balance 770 ml 360 ml Intake Oral 770 ml 360 ml # Voids 5 3 # Bowel Movements 0 1 Result Diagram: 08/31/17 0230 08/31/17 0230 Objective Remarks GENERAL: This is a well-nourished, well-developed patient, in no apparent distress. CARDIOVASCULAR: Regular rate and regular rhythm without murmurs, gallops, or rubs. RESPIRATORY: Clear to auscultation. Breath sounds equal bilaterally. No wheezes , rales, or rhonchi. GASTROINTESTINAL: Abdomen soft, mild RUQ tenderness, nondistended. Normal, active bowel sounds MUSCULOSKELETAL: Extremities without clubbing, cyanosis, or edema. NEURO: Alert & Oriented x4 to person, place, time, situation. Moves all ext x4 Procedures ERCP/ lap chioma, excision of back mass, excision forehead mass Medications and IVs Inpatient Medications Acetaminophen (Tylenol) 650 mg Q4H PRN PO TEMP > 100.4 Last administered on at 18:35; Start 08/22/17 at 08:00 Acetaminophen/ Hydrocodone Bitart ([place] 5-325 Mg) 1 tab Q4H PRN PO pain >5 Last administered on 08/31/17at 02:37; Start 08/26/17 at 23:45 Apixaban (Eliquis) 2.5 mg BID PO Last administered on 08/31/17at 09:56; Start at 21:00 Aztreonam 1000 mg/ Sodium Chloride 100 ml @ 200 mls/hr Q12H IV Last administered on 08/22/17at 23:48; Start 08/22/17 at 12:00; Stop 08/23/17 at 10:30 ; Status DC Chlorhexidine Gluconate (Chlorhexidine 2% Cloth) 3 pack TIME STUDY CLERK PRN TOPICAL SEE LABEL COMMENTS; Start 08/24/17 at 04:45; Stop 08/26/17 at 13:43; Status DC Diltiazem HCl (Cardizem Cd) 120 mg ONCE ONCE PO Last administered on at 13:31; Start 08/22/17 at 13:00; Stop 08/22/17 at 13:10; Status DC Diphenhydramine HCl (Benadryl) 25 mg Q4H PRN PO itchiong Last administered on at 18:35; Start 08/23/17 at 10:30 Docusate Sodium (Colace) 100 mg BID PO Last administered on 08/31/17at 09:55; Start 08/28/17 at 21:00 Flumazenil (Romazicon Inj) 0.2 mg Q1M PRN IV PUSH SEE LABEL COMMENTS; Start at 13:30 Folic Acid (Folate) 1 mg DAILY PO ; Start 08/23/17 at 09:00; Stop 08/28/17 at 08 :59; Status DC Furosemide (Lasix) 20 mg DAILY PO Last administered on 08/31/17at 09:56; Start 08/23/17 at 09:00 Haloperidol Lactate (Haldol Inj) 2 mg Q15M PRN IM SEE LABEL COMMENTS; Start at 13:30 Iron Sucrose 200 mg/Sodium Chloride 110 ml @ 110 mls/hr DAILY IV ; Start at 09:00; Stop 08/30/17 at 09:59; Status DC Ketorolac Tromethamine (Toradol Inj) 15 mg ONCE ONCE IV PUSH Last administered on 08/22/17at 09:26; Start 08/22/17 at 09:30; Stop 08/22/17 at 09:31 ; Status DC Lactated Ringer's 1,000 ml @ 30 mls/hr Q24H PRN IV SEE LABEL COMMENTS Last administered on 08/26/17at 11:30; Start 08/24/17 at 04:45; Stop 08/26/17 at 13:42 ; Status DC Levofloxacin/ Dextrose 100 ml @ 100 mls/hr Q24H IV ; Start 08/22/17 at 08:00; Stop 08/22/17 at 15:22; Status DC Lorazepam (Ativan Inj) 2 mg Q15M PRN IV PUSH CIWA > 20; Start 08/22/17 at 13:30 Lorazepam (Ativan) 2 mg Q2H PRN PO CIWA 11-14; Start 08/22/17 at 13:30 Magnesium Oxide (Mag-Ox) 400 mg DAILY@1100 PO Last administered on 08/30/17at 09 :20; Start 08/22/17 at 11:14 Metoclopramide HCl (Reglan Inj) 5 mg Q6H PRN IV PUSH NAUSEA OR VOMITING; Start 08/22/17 at 08:00 Miscellaneous Information ([facility] [place] [facility]) ALL NURSING DEPARTME... UNSCH PRN .XX SEE LABEL COMMENTS; Start 08/26/17 at 16:14; Stop 08/27/17 at 16: 13; Status DC Morphine Sulfate (Morphine Inj) 2 mg Q4H PRN IV PUSH PAIN 6-10; Start 08/22/17 at 21:45; Stop 08/26/17 at 23:41; Status DC Multivitamins/ Minerals Therapeutic (Theragran M Tab) 1 tab DAILY PO ; Start at 09:00; Stop 08/28/17 at 08:59; Status DC Naloxone HCl (Narcan Inj) 0.4 mg UNSCH PRN IV PUSH SEE LABEL COMMENTS; Start at 08:00 Ondansetron HCl (Zofran Inj) 4 mg ONCE ONCE IVP Last administered on at 04:42; Start 08/22/17 at 03:45; Stop 08/22/17 at 03:46; Status DC Pantoprazole Sodium (Protonix) 20 mg DAILY PO Last administered on 08/31/17at 09 :55; Start 08/23/17 at 09:00 Potassium Chloride/Dextrose/ Sod Cl 1,000 ml @ 70 mls/hr [id number] IV Last administered on 08/26/17at 18:24; Start 08/23/17 at 16:00; Stop 08/29/17 at 00:06 ; Status DC Potassium Chloride (KCl) 30 meq ONCE ONCE PO Last administered on 08/29/17at 11 :03; Start 08/29/17 at 10:30; Stop 08/29/17 at 10:31; Status DC Povidone Iodine (Betadine 5% Antisepsis Kit) 1 applic TIME STUDY CLERK PRN EACH NARE SEE LABEL COMMENTS; Start 08/24/17 at 04:45; Stop 08/26/17 at 13:43; Status DC Prochlorperazine Edisylate (Compazine Inj) 10 mg ONCE ONCE IV PUSH Last administered on 08/22/17at 05:35; Start 08/22/17 at 05:30; Stop 08/22/17 at 05:31 ; Status DC Sodium Chloride 500 ml @ 30 mls/hr [id number] PRN IV SEE LABEL COMMENTS; Start at 04:45; Stop 08/26/17 at 13:42; Status DC Sodium Chloride (NS Flush) 2 ml BID IV FLUSH Last administered on 08/31/17at 09: 56; Start 08/22/17 at 09:00 Thiamine HCl (Vitamin B1) 100 mg DAILY PO ; Start 08/23/17 at 09:00 Valacyclovir HCl (Valtrex) 500 mg Q12HR PO Last administered on 08/27/17at 08:25 ; Start 08/26/17 at 21:00; Stop 08/27/17 at 09:01; Status DC A/P Problem List: (1) Choledocholithiasis ICD Code: K80.50 - Calculus of bile duct without cholangitis or cholecystitis without obstruction Status: Acute Assessment and Plan A/P Right upper quadrant pain with abnormal liver function tests, cholelithiasis with intra-hepatic and extrahepatic bile duct dilatation possible choledocholithiasis and gallstone pancreatitis. s/p ERCP with CBD dilation and stent placement. will need ERCP in three months for stent removal. s/p lap cholecystectomy. still with some pain to the RUQ- continue with pain control. management per GS. forehead/back lesion- s/p biopsy- pathology consistent with melanoma. oncology following; d/w ; f/u as outpatient. Retroperitoneal lymphadenopathy. consulted. thrombocytopenia- platelet count stable- evaluated by ; f/u as outpatient. Hypokalemia. Replaced Rash likely drug from aztreonam. Hx of multiple drug allergies. No respiratory compromise. Discontinued aztreonam. Benadryl as needed Multiple medical conditions of A. fib on Eliquis ( will resume today after seen by GS) and Cardizem , leukopenia and thrombocytopenia followed by Dr. Oakes, GERD , hypertension, bilateral lower extremity edema on Lasix, osteoarthritis and migraines. Continue outpatient medications as appropriate DVT prophylaxis with SCD. Eliquis on hold pending GI evaluation Discharge Planning dc home-likely today- when cleared by surgery. see med list. f/u; pcp, GI, GS and oncology. d/w the patient. Sabino Vicente MD Aug 31, 2017 10:44
[2017-08-31] MEDS: MAGNESIUM OXIDE 400 MG TAB PO SCH (10:56)
[2017-08-31] MEDS ORDERED: POTASSIUM CHLORIDE 20 MEQ CONTROLLED RELEASE TAB PO ONE (11:00)
--- NOTE | 2017-08-31 15:06 | HHI.PR ---
Subjective Subjective Notes Resting in bed Pain better Objective Vitals/I&O Vital Signs Date Time Temp Pulse Resp B/P (MAP) Pulse Ox O2 Delivery O2 Flow Rate FiO2 08/31/17 12:06 98.1 79 18 123/79 (94) 97 08/29/17 10:49 21 Labs Laboratory Tests Test 08/31/17 02:30 White Blood Count 7.2 Red Blood Count 4.44 Hemoglobin 11.1 Hematocrit 35.1 Mean Corpuscular Volume 79.2 Mean Corpuscular Hemoglobin 24.9 Mean Corpuscular Hemoglobin Concent 31.5 Red Cell Distribution Width 19.9 Platelet Count 156 Mean Platelet Volume 8.7 Neutrophils (%) (Auto) 83.2 Lymphocytes (%) (Auto) 4.8 Monocytes (%) (Auto) 7.0 Eosinophils (%) (Auto) 4.8 Basophils (%) (Auto) 0.2 Neutrophils # (Auto) 6.0 Lymphocytes # (Auto) 0.4 Monocytes # (Auto) 0.5 Eosinophils # (Auto) 0.3 Basophils # (Auto) 0.0 CBC Comment DIFF FINAL Differential Comment Blood Urea Nitrogen 8 Creatinine 0.58 Random Glucose 103 Calcium Level 8.1 Sodium Level 136 Potassium Level 3.4 Chloride Level 100 Carbon Dioxide Level 25.6 Anion Gap 10 Estimat Glomerular Filtration Rate 101 Radiology Last Impressions GI Procedure 08/25/17 0000 Signed Impressions: CONCLUSION: Placement of internal biliary stent.. Abdomen/Pelvis CT 08/22/17 0336 Signed Impressions: CONCLUSION: 1. There is nondistention of the colon without significant inflammatory change s. 2. Scattered diverticulosis without diverticulitis. 3. Minimal stranding posterior to the pancreas of uncertain etiology but could represent pancreatitis in the right clinical setting. 4. Cholelithiasis. 5. Hepatic low densities, likely benign. 6. Scattered retroperitoneal lymphadenopathy largest measuring 13 mm. Gall Bladder Ultrasound 08/22/17 0000 Signed Impressions: CONCLUSION: 1. Cholelithiasis with intrahepatic and extrahepatic bile duct dilatation. No stone is visualized in the common duct on this examination but on recent CT in retrospect there are small high density structures in the distal common duct reyes spicious for distal common bile duct stones. 2. Pancreas has a normal appearance on this examination but demonstrated mild inflammatory change adjacent to the pancreas on recent CT. 3. There are benign-appearing hepatic and right renal cysts. Cardiovascular: Regular Lungs: Clear Abdomen: Other (lap sites c/d/i; RUQ tenderness with palpation ) Extremities: No edema Narrative Exam forehead incision with sutures A/P Assessment and Plan 77 year old female POD5 Lap chioma doing well, excision of back mass, excision of forehead lesion I discussed the pathology back melanoma will need further w/u including excision with margins and SLN bx. SCC insitu completely excised I recommend patient to follow up with dermatology -Tolerating regular diet -OOB -Remove facial sutures -Pain control -Dr. Violette whitman -Jazmine restarted -IS -GS clear for DC; follow up Thursday Attending Statement as above patient seen at bedside f/u with dermatology ok for d/c f/u with general surgery on thursday. Patient will need further excision for margins. Attestation The exam, history, and the medical decision-making described in the above note were completed with the assistance of the mid-level provider. I reviewed and agree with the findings presented. I attest that I had a [id number] encounter with the patient on the same day, and personally performed and documented my assessment and findings in the medical record. Maribel Thompson/First Annmarie LUNA Aug 31, 2017 15:06 Rafi Isaac MD Aug 31, 2017 23:23
--- NOTE | 2017-08-31 15:13 | PD.CARD.PN ---
Subjective Subjective Remarks No CP or SOB, still c/o R side/abdominal pain increased with deep inspiration Objective Medications Current Medications Medications (Trade) Dose Ordered Sig/Linda Route Start Time Stop Time Status Last Admin (NS Flush) 2 ml UNSCH PRN IV FLUSH 08/22/17 08:00 (NS Flush) 2 ml BID IV FLUSH 08/22/17 09:00 08/31/17 09:56 (Tylenol) 650 mg Q4H PRN PO 08/22/17 08:00 08/25/17 18:35 (Reglan Inj) 5 mg Q6H PRN IV PUSH 08/22/17 08:00 (Narcan Inj) 0.4 mg UNSCH PRN IV PUSH 08/22/17 08:00 (Cardizem Cd) 120 mg DAILY PO 08/23/17 09:00 08/31/17 09:55 (Lasix) 20 mg DAILY PO 08/23/17 09:00 08/31/17 09:56 (Protonix) 20 mg DAILY PO 08/23/17 09:00 08/31/17 09:55 (KCl) 20 meq DAILY PO 08/23/17 09:00 08/31/17 09:56 (Mag-Ox) 400 mg DAILY@1100 PO 08/22/17 11:14 08/31/17 10:56 (Vitamin B1) 100 mg DAILY PO 08/23/17 09:00 (Romazicon Inj) 0.2 mg Q1M PRN IV PUSH 08/22/17 13:30 (Ativan) 1 mg Q4H PRN PO 08/22/17 13:30 (Ativan Inj) 1 mg Q4H PRN IV PUSH 08/22/17 13:30 (Ativan) 2 mg Q2H PRN PO 08/22/17 13:30 (Ativan Inj) 2 mg Q2H PRN IV PUSH 08/22/17 13:30 (Ativan Inj) 2 mg Q1H PRN IV PUSH 08/22/17 13:30 (Ativan Inj) 2 mg Q15M PRN IV PUSH 08/22/17 13:30 (Haldol Inj) 2 mg Q15M PRN IM 08/22/17 13:30 (Benadryl) 25 mg Q4H PRN PO 08/23/17 10:30 08/25/17 18:35 ([place] 5-325 Mg) 1 tab Q4H PRN PO 08/26/17 23:45 08/31/17 10:56 (Colace) 100 mg BID PO 08/28/17 21:00 08/31/17 09:55 (Eliquis) 2.5 mg BID PO 08/29/17 21:00 08/31/17 09:56 Vital Signs / I&O Vital Signs Date Time Temp Pulse Resp B/P (MAP) Pulse Ox O2 Delivery O2 Flow Rate FiO2 08/31/17 12:06 98.1 79 18 123/79 (94) 97 08/31/17 08:00 97.3 96 19 167/88 (114) 96 08/31/17 07:50 94 08/31/17 04:00 98.0 87 20 133/77 (95) 97 08/31/17 00:39 84 08/31/17 00:00 97.9 82 20 142/66 (91) 97 08/30/17 22:40 20 08/30/17 20:00 97.8 95 20 124/68 (86) 97 08/30/17 16:00 97.7 90 19 132/76 (94) 95 I/O 08/30/17 08/30/17 08/30/17 08/31/17 08/31/17 08/31/17 07:00 15:00 23:00 07:00 15:00 23:00 Intake Total 770 ml 360 ml Balance 770 ml 360 ml Intake Oral 770 ml 360 ml # Voids 5 3 # Bowel Movements 0 1 Physical Exam GENERAL: In NAD. SKIN: Warm and dry. HEAD: Normocephalic. EYES: No scleral icterus. No injection or drainage. NECK: Supple, trachea midline. No JVD or lymphadenopathy. CARDIOVASCULAR: Irregular rate, without murmurs, gallops, or rubs. RESPIRATORY: Breath sounds equal bilaterally. No accessory muscle use. GASTROINTESTINAL: Abdomen soft, non-tender, nondistended. MUSCULOSKELETAL: No cyanosis, or edema. Laboratory Laboratory Tests Test 08/31/17 02:30 White Blood Count 7.2 TH/MM3 Red Blood Count 4.44 MIL/MM3 Hemoglobin 11.1 GM/DL Hematocrit 35.1 % Mean Corpuscular Volume 79.2 FL Mean Corpuscular Hemoglobin 24.9 PG Mean Corpuscular Hemoglobin Concent 31.5 % Red Cell Distribution Width 19.9 % Platelet Count 156 TH/MM3 Mean Platelet Volume 8.7 FL Neutrophils (%) (Auto) 83.2 % Lymphocytes (%) (Auto) 4.8 % Monocytes (%) (Auto) 7.0 % Eosinophils (%) (Auto) 4.8 % Basophils (%) (Auto) 0.2 % Neutrophils # (Auto) 6.0 TH/MM3 Lymphocytes # (Auto) 0.4 TH/MM3 Monocytes # (Auto) 0.5 TH/MM3 Eosinophils # (Auto) 0.3 TH/MM3 Basophils # (Auto) 0.0 TH/MM3 CBC Comment DIFF FINAL Differential Comment Blood Urea Nitrogen 8 MG/DL Creatinine 0.58 MG/DL Random Glucose 103 MG/DL Calcium Level 8.1 MG/DL Sodium Level 136 MEQ/L Potassium Level 3.4 MEQ/L Chloride Level 100 MEQ/L Carbon Dioxide Level 25.6 MEQ/L Anion Gap 10 MEQ/L Estimat Glomerular Filtration Rate 101 ML/MIN Assessment and Plan Problem List: (1) Choledocholithiasis ICD Codes: K80.50 - Calculus of bile duct without cholangitis or cholecystitis without obstruction Status: Acute (2) Gallstone pancreatitis ICD Codes: K85.10 - Biliary acute pancreatitis without necrosis or infection (3) CAD (coronary artery disease) ICD Codes: I25.10 - Atherosclerotic heart disease of [place] coronary artery without angina pectoris (4) Chronic atrial fibrillation ICD Codes: I48.2 - Chronic atrial fibrillation (5) HTN (hypertension) ICD Codes: I10 - Essential (primary) hypertension Status: Acute (6) Melanoma ICD Codes: C43.9 - Malignant melanoma of skin, unspecified Assessment and Plan Stable from cardiac standpoint. No angina, CHF or significant arrhythmias. Continue anticoagulation with Eliquis. Increase activity. F/u w Dr. Mancini, her primary integrity analyst, after discharge. To Chapin MD Aug 31, 2017 15:13
== END 2017-08-31 18:44 | disposition home or self-care (01) | DRG 417 ==
LOC: PHED 02:48 → PHEDA 07:58 → N07A 10:09
PROVIDERS: ADMIT Internal Medicine; ATTEND Internal Medicine
PROC: 0F798DZ Dilation of Common Bile Duct with Intraluminal Device, Via Natural or Artificial Opening Endoscopic (ICD-10-PCS; 2017-08-25)
PROC: 0FC98ZZ Extirpation of Matter from Common Bile Duct, Via Natural or Artificial Opening Endoscopic (ICD-10-PCS; 2017-08-25)
PROC: BF141ZZ Fluoroscopy of Gallbladder, Bile Ducts and Pancreatic Ducts using Low Osmolar Contrast (ICD-10-PCS; 2017-08-25)
PROC: 0HB6XZX Excision of Back Skin, External Approach, Diagnostic (ICD-10-PCS; 2017-08-26)
PROC: 0HB1XZX Excision of Face Skin, External Approach, Diagnostic (ICD-10-PCS; 2017-08-26)
PROC: 0FT44ZZ Resection of Gallbladder, Percutaneous Endoscopic Approach (ICD-10-PCS; principal; 2017-08-26 14:13)
DX: K80.64 Calculus of gallbladder and bile duct with chronic cholecystitis without obstruction (principal); K85.10 Biliary acute pancreatitis without necrosis or infection; D69.3 Immune thrombocytopenic purpura; C43.59 Malignant melanoma of other part of trunk; K76.0 Fatty (change of) liver, not elsewhere classified; I48.2 Chronic atrial fibrillation; R16.1 Splenomegaly, not elsewhere classified; I25.10 Atherosclerotic heart disease of native coronary artery without angina pectoris; M19.90 Unspecified osteoarthritis, unspecified site; K21.9 Gastro-esophageal reflux disease without esophagitis; I10 Essential (primary) hypertension; E87.6 Hypokalemia; I34.0 Nonrheumatic mitral (valve) insufficiency; D04.39 Carcinoma in situ of skin of other parts of face; R59.0 Localized enlarged lymph nodes; D50.9 Iron deficiency anemia, unspecified; L27.0 Generalized skin eruption due to drugs and medicaments taken internally; T36.1X5A Adverse effect of cephalosporins and other beta-lactam antibiotics, initial encounter; Z79.01 Long term (current) use of anticoagulants; Z88.9 Allergy status to unspecified drugs, medicaments and biological substances
CPT/HCPCS: 74176; 74330; 76705; 80048; 80053; 80076; 81001; 83690; 83735; 85025; 85027; 85610; 85730; 88304; 88305; 93005; 96361; 96374; 96375; C2625; J0780; J1100; J1170; J1200; J1885; J2250; J2405; J2710; J2930; J3010; J3480; J7040; J7120